=== PATIENT | female | born 1965 | race Caucasian/White ===

== ENCOUNTER 2019-03-23 08:48 | Observation (INO) | payer OTHER ==
--- NOTE | 2019-03-23 09:10 | PDOC ---
History of Present Illness - General Chief Complaint: Chest Pain Stated Complaint: CHEST PAIN Time Seen by Provider: 03/23/19 09:09 - History of Present Illness Initial Comments: 03/23/19 09:34 53y/o F hx of HTN, NIDDM, HLD, anxiety, presents to the ER with 2 days of left sided chest pain. Pain began yesterday when she was in bed and is stabbing in nature and 9/10 in severity. Pain increases and decreases in intensity, and radiates to her left arm with tingling. She has had nausea and 2 episoseds of non-bloody, non-billious emesis since yesterday. She endorses non-productive cough for last 5 days, chills, night sweats, headache and occasional shortness of breath. She denies previous hx of blood clots, Past History - Past Medical History Allergies/Adverse Reactions: Allergies Allergy/AdvReac Type Severity Reaction Status Date / Time No Known Allergies Allergy Verified 03/23/19 08:53 Home Medications: Ambulatory Orders Alogliptin Benzoate [Alogliptin] 1 tab PO DAILY 03/23/19 Amlodipine Besylate [Norvasc -] 10 mg PO DAILY 03/23/19 Atorvastatin Calcium [Lipitor] 10 mg PO HS 03/23/19 Enalapril Maleate [Vasotec] 20 mg PO DAILY 03/23/19 Gabapentin 1 tab PO TID 03/23/19 Metformin HCl [Glucophage] 1,000 mg PO BID 03/23/19 Omeprazole 20 mg PO DAILY 03/23/19 traZODone HCL [Trazodone HCl] 100 mg PO BID PRN 03/23/19 Docusate Sodium [Docusate 100 mg] 1 cap PO DAILY PRN 03/24/19 Metoprolol Succinate [Toprol Xl] 12.5 mg PO DAILY #30 tab.er.24h 03/24/19 COPD: No Diabetes: Yes HTN: Yes Hypercholesterolemia: Yes Psychiatric Problems: Yes (anxiety) - Psycho Social/Smoking Cessation Hx Smoking History: Unknown if ever smoked *Physical Exam - Vital Signs Last Vital Signs Temp Pulse Resp BP Pulse Ox 97.5 F L 89 18 137/82 100 03/23/19 08:57 03/23/19 08:57 03/23/19 08:57 03/23/19 08:57 03/23/19 08:57 - Physical Exam 03/23/19 09:46 GENERAL: Awake, alert, and fully oriented, in no acute distress HEAD: No signs of trauma, normocephalic, atraumatic EYES: PERRLA, EOMI, sclera anicteric, conjunctiva clear ENT: Auricles normal inspection, hearing grossly normal, nares patent, oropharynx clear without exudates. Moist mucosa NECK: Normal ROM, supple, no lymphadenopathy, JVD, or masses LUNGS: No distress, speaks full sentences, clear to auscultation bilaterally. keloids on chest. tenderness to palpation of upper left thorax. HEART: Regular rate and rhythm, normal S1 and S2, no murmurs, rubs or gallops, peripheral pulses normal and equal bilaterally. ABDOMEN: Soft, nontender, normoactive bowel sounds. No guarding, no rebound. No masses. keloids from surgical scar EXTREMITIES : Normal inspection, Normal range of motion, no edema. No clubbing or cyanosis NEUROLOGICAL: Cranial nerves II through XII grossly intact. Normal speech, , no focal sensorimotor deficits SKIN: Warm, Dry, normal turgor, no rashes or lesions noted Heart Score/ECG Review - History History: Slightly suspicious - Electrocardiogram EKG: Non specific repolarization disturbance - Age Age: 45-65 - Risk Factors Risk Factors Heart Score: Yes Hx Hypercholesterolemia, Yes Hx Hypertension, Yes Hx Diabetes Based on the list above the patient has:: >/=3 risk factors or Hx atherosclerotic disease - Troponin Troponin: </= normal limit - Score Heart Score - Total: 4 ED Treatment Course - LABORATORY CBC & Chemistry Diagram: 03/24/19 06:26 03/24/19 06:26 Medical Decision Making - Medical Decision Making 03/23/19 09:47 53y/o F hx of HTN, NIDDM, HLD, anxiety, presents to the ER with 2 days of left sided chest pain. ekg, cbc, cmp, troponin, flu swab meds: tylenol, zofran, famotidine 03/23/19 09:52 EKG NSR, nonspecific T wave abnormality 03/23/19 11:04 Negative for flu. 03/23/19 11:55 HEART score 4 recommendation admit for observation Pt feeling better after fluids and tylenol. Admitting team microblogged for admission. Discharge - Discharge Information Problems reviewed: Yes Clinical Impression/Diagnosis: Chest pain Qualifiers: Chest pain type: other chest pain Qualified Code(s): R07.89 - Other chest pain ; R07.8 - Other chest pain Condition: Improved Disposition: AGAINST MEDICAL ADVICE - Follow up/Referral - Patient Discharge Instructions - Post Discharge Activity
[2019-03-23] MEDS ORDERED: ONDANSETRON 4 MG/2 ML VIAL IVPUSH ONE (09:28)
[2019-03-23] MEDS ORDERED: FAMOTIDINE 20 MG/50 ML IVPB 20 MG/50 ML MG IVPB ONE ×2 (09:28→09:34)
[2019-03-23] MEDS ORDERED: ACETAMINOPHEN 1000 MG/100 ML VIAL (NON FORMULARY) IVPB ONE (09:32)
[2019-03-23] MEDS ORDERED: ONDANSETRON 4 MG/2 ML VIAL ONE (09:34)
[2019-03-23] MEDS ORDERED: SODIUM CHLORIDE 0.9% 500 ML INFUS.BAG IV ONE (09:34)
[2019-03-23] MEDS ORDERED: ACETAMINOPHEN INJECTION 100 ML IVPB ONE (09:34)
[2019-03-23 09:46] LABS: BASO % 0.8 % (0-2.0); EOS % 0.5 % (0-4.5); HEMATOCRIT 41.2 % (32.4-45.2); HEMOGLOBIN 13.8 GM/dL (10.7-15.3); LYMPH % 16.5 % (8-40); MCH 28.2 pg (25.7-33.7); MCHC 33.5 g/dl (32.0-36.0); MEAN CELL VOLUME 84.2 fl (80-96); MEAN PLT VOLUME 10.1 fl (7.5-11.1); MONO % 6.5 % (3.8-10.2); NEUT % 75.7 % (42.8-82.8); PLATELET COUNT 205 K/MM3 (134-434); RDW 14.6 % (11.6-15.6); WHITE BLOOD COUNT 12.7 K/mm3 (4.0-10.0)
[2019-03-23 10:23] LABS: ALBUMIN 3.7 g/dl (3.4-5.0); ALK PHOS 108 U/L (45-117); ANION GAP 6 MMOL/L (8-16); BILIRUBIN,TOTAL 0.5 mg/dL (0.2-1); BLOOD UREA NITROGEN 23.5 mg/dL (7-18); CALCIUM 9.9 mg/dL (8.5-10.1); CHLORIDE 103 mmol/L (98-107); CO2 28 mmol/L (21-32); CREATININE 0.9 mg/dL (0.55-1.3); GLUCOSE,RANDOM 137 mg/dL (74-106); POTASSIUM 4.4 mmol/L (3.5-5.1); SGOT/AST 18 U/L (15-37); SGPT/ALT 23 U/L (13-61); SODIUM 138 mmol/L (136-145); TOT PROT 8.1 g/dl (6.4-8.2)
--- NOTE | 2019-03-23 10:56 | EKG ---
Test Reason : Blood Pressure : / mmHG Vent. Rate : 083 BPM Atrial Rate : 083 BPM P-R Int : 150 ms QRS Dur : 068 ms QT Int : 362 ms P-R-T Axes : 045 024 065 degrees QTc Int : 425 ms NORMAL SINUS RHYTHM NONSPECIFIC T WAVE ABNORMALITY ABNORMAL ECG NO PREVIOUS ECGS AVAILABLE Confirmed by Chapin Childs MD ([id number]) on 03/23/2019 10:56:33 AM Referred By: Confirmed By:Chapin Childs MD
--- NOTE | 2019-03-23 11:17 | PDOC ---
Documentation entered by aRjan Caal SCRIBE, acting as scribe for Jordan Ortiz MD. Jordan Ortiz MD: This documentation has been prepared by the Ten galarza Daniel, SCRIBE, under my direction and personally reviewed by me in its entirety. I confirm that the documentation accurately reflects all work, treatment, procedures, and medical decision making performed by me. Attending Attestation - Resident Resident Name: ViktoriaAugustdendiony - ED Attending Attestation I have performed the following: I have examined & evaluated the patient, The case was reviewed & discussed with the resident, I agree w/resident's findings & plan, Exceptions are as noted - HPI HPI: 03/23/19 11:20 The patient is a 53 year old female with a past medical history of diabetes, HTN , HLD here today for evaluation of chest pain. The patient reports that last night while lying down she developed left sided chest pain that is constant, a pressure or sharp pain in nature, and radiates to the left shoulder and arm. She also reports that she has had a dry cough for the past 3 days, 1 episode of non bloody non bilious vomiting yesterday, shortness of breath since yesterday, and generalized malaise. She also notes that she had a normal stress test 1 year ago. Patient denies headache, lightheadedness. Denies fever, chills. Denies nausea, vomiting, diarrhea, abdominal pain. Allergies: NKA PCP: Jose Monge - Physicial Exam PE: 03/23/19 11:20 GENERAL: Awake, alert, and fully oriented, in no acute distress HEAD: No signs of trauma EYES: PERRLA, EOMI, sclera anicteric, conjunctiva clear ENT: Auricles normal inspection, hearing grossly normal, nares patent, oropharynx clear without exudates. Moist mucosa NECK: Normal ROM, supple, no lymphadenopathy, JVD, or masses LUNGS: Breath sounds equal, clear to auscultation bilaterally. No wheezes, and no crackles HEART: Regular rate and rhythm, normal S1 and S2, no murmurs, rubs or gallops ABDOMEN: Soft, nontender, normoactive bowel sounds. No guarding, no rebound. No masses EXTREMITIES: Normal range of motion, no edema. No clubbing or cyanosis. No cords , erythema, or tenderness BACK: No midline spinal tenderness in cervical/thoracic/lumbar region NEUROLOGICAL: Normal speech, cranial nerves intact, negative pronator drift, 5/ 5 strength in all 4 extremities, normal sensation to light touch in all 4 extremities, normal cerebellar exam, normal gait, normal reflexes and tone SKIN: Warm, Dry, normal turgor, no rashes or lesions noted. - Medical Decision Making 03/23/19 13:03 53yo F hx HTN/DM presents to the ED with LSCP radiating to arm a/w intermittent SOB at rest DDx includes ACS vs angina vs unstable angina vs MSK pain Unlikely PE as no risk factors, vitals wnl, CP not pleuritic, no calf pain/ttp EKG with lateral TW flattening Trop neg, CXR clear HS 4, pt admitted to tele obs for TOM Case discussed in detail with admitting physician including history, physical exam and ancillary studies. Admitting physician has assumed care for the patient, will follow all pending diagnostics and will complete the evaluation and treatment. Heart Score/ECG Review - History History: Moderately suspicious - Electrocardiogram EKG: Normal - Age Age: 45-65 - Risk Factors Risk Factors Heart Score: Yes Hx Obesity Based on the list above the patient has:: >/=3 risk factors or Hx atherosclerotic disease - Troponin Troponin: </= normal limit - Score Heart Score - Total: 4
--- NOTE | 2019-03-23 13:33 | PN ---
Teaching Attending Note Name of Resident: Rob Kohler ATTENDING PHYSICIAN STATEMENT I saw and evaluated the patient. I reviewed the resident's note and discussed the case with the resident. I agree with the resident's findings and plan as documented. SUBJECTIVE: Patient is 53yof with PMhx of HTN, NIDDM, HLD, anxiety, presents to the ER with 2 days of having left sided chest pain. OBJECTIVE: Vital Signs Temperature 98.0 F 03/23/19 13:21 Pulse Rate 70 03/23/19 13:21 Respiratory Rate 20 03/23/19 13:21 Blood Pressure 137/77 03/23/19 13:21 O2 Sat by Pulse Oximetry (%) 100 03/23/19 13:21 GENERAL: The patient is awake, alert, and fully oriented, in no acute distress. HEAD: Normal with no signs of trauma. EYES: PERRL, extraocular movements intact, sclera anicteric, conjunctiva clear. ENT: Ears normal, nares patent, oropharynx clear without exudates, moist mucous membranes. NECK: Trachea midline, full range of motion, supple. LUNGS: Breath sounds equal, clear to auscultation bilaterally, no wheezes, no crackles, no accessory muscle use. HEART: Regular rate and rhythm, S1, S2 without murmur, rub or gallop. ABDOMEN: Soft, nontender, nondistended, normoactive bowel sounds, no guarding, no rebound, no hepatosplenomegaly, no masses. EXTREMITIES: 2+ pulses, warm, well-perfused, no edema. NEUROLOGICAL: Cranial nerves II through XII grossly intact. Normal speech, gait not observed. PSYCH: Normal mood, normal affect. SKIN: Warm, dry, normal turgor, no rashes or lesions noted CBCD WBC 12.7 K/mm3 (4.0-10.0) H 03/23/19 09:24 RBC 4.90 M/mm3 (3.60-5.2) 03/23/19 09:24 Hgb 13.8 GM/dL (10.7-15.3) 03/23/19 09:24 Hct 41.2 % (32.4-45.2) 03/23/19 09:24 MCV 84.2 fl (80-96) 03/23/19 09:24 MCHC 33.5 g/dl (32.0-36.0) 03/23/19 09:24 RDW 14.6 % (11.6-15.6) 03/23/19 09:24 Plt Count 205 K/MM3 (134-434) 03/23/19 09:24 MPV 10.1 fl (7.5-11.1) 03/23/19 09:24 CMP Sodium 138 mmol/L (136-145) 03/23/19 09:24 Potassium 4.4 mmol/L (3.5-5.1) 03/23/19 09:24 Chloride 103 mmol/L (98-107) 03/23/19 09:24 Carbon Dioxide 28 mmol/L (21-32) 03/23/19 09:24 Anion Gap 6 MMOL/L (8-16) L 03/23/19 09:24 BUN 23.5 mg/dL (7-18) H 03/23/19 09:24 Creatinine 0.9 mg/dL (0.55-1.3) 03/23/19 09:24 Random Glucose 137 mg/dL (74-106) H 03/23/19 09:24 Calcium 9.9 mg/dL (8.5-10.1) 03/23/19 09:24 Total Bilirubin 0.5 mg/dL (0.2-1) 03/23/19 09:24 AST 18 U/L (15-37) 03/23/19 09:24 ALT 23 U/L (13-61) 03/23/19 09:24 Alkaline Phosphatase 108 U/L (45-117) 03/23/19 09:24 Total Protein 8.1 g/dl (6.4-8.2) 03/23/19 09:24 Albumin 3.7 g/dl (3.4-5.0) 03/23/19 09:24 CARDIAC ENZYMES Troponin I < 0.02 ng/ml (0.00-0.05) 03/23/19 09:24 Current Medications Generic Name Dose Route Start Last Admin Trade Name Freq PRN Reason Stop Dose Admin Enoxaparin Sodium 40 mg 03/24/19 10:00 Lovenox - SQ DAILY [facility] Insulin Aspart 1 vial 03/23/19 16:30 Novolog Vial Sliding Scale - SQ ACHS [facility] Protocol Labetalol HCl 100 mg 03/23/19 22:00 Normodyne - PO BID [facility] Home Medications Medication Instructions Recorded Alogliptin Benzoate [Alogliptin] 1 tab PO DAILY 03/23/19 Amlodipine Besylate [Norvasc -] 10 mg PO DAILY 03/23/19 Atorvastatin Calcium [Lipitor] 10 mg PO HS 03/23/19 Enalapril Maleate [Vasotec] 20 mg PO DAILY 03/23/19 Gabapentin 1 tab PO TID 03/23/19 Metformin HCl [Glucophage] 1,000 mg PO BID 03/23/19 Omeprazole 20 mg PO DAILY 03/23/19 Pantoprazole Sodium [Protonix -] 40 mg PO DAILY 03/23/19 traZODone HCL [Trazodone HCl] 100 mg PO BID PRN 03/23/19 EKG: NSR, rate 83,nonspecific T-wave changes. CXR: No acute pathology ASSESSMENT AND PLAN: Patient is 53yoF with Pmhx of HTN, NIDDM, HLD, anxiety, presents to the ER c/o having 2 days of left sided chest pain. As per patient chest pain after having an argument with her Boyfriend. #Acute chest pain r/o ACs, trend trops, ekg, influenza A/B negative #Hx of T2DM continue home meds #Hx of HTN: continue home meds. #Hxof HLD continue lipitor will get echo , monitor DVt Px: Lovenox sq
--- NOTE | 2019-03-23 13:58 | HP ---
CHIEF COMPLAINT: Chest Pain PCP: Dr. Jaylan Schulte HISTORY OF PRESENT ILLNESS: Pt. chapis 53 y.o. F w/ PMHx. of NIDDM (DDx.~7 years ago), HTN, HLD, Anxiety, Arthritis, and Osteopenia (Pt. reports Dexascan 2-3 years ago by PCP) presents for chest pain that was 9/10 in severity and started last night after having an argument with her fiance with associated shortness of breath, 3 episodes of NBNB emesis, headache, malaise, chills, dizziness and night sweats. Pt. denies taking anything for this but states that this has been happening intermittently for the last 3 years. Pt. states this time is the worst that it has ever happened. Pt. reports that at that time she checked her BP and it was 198/77. Pt. rechecked her BP some time later with out any intervention and her BP self-lowered to 108/99. Pt. report sleeping in her mom' s room that night. Chest pain then re-occurred this AM after again getting into an argument with her finace. Pt. did not check her BP this time and instead came to the ED. Pt. endorses that 1 week ago she was started on Lipitor 10mg( had reported cholesterol of 300), Algoliptin 25 mg, and Norvasc 10mg (had reported BP of 200 systolic during the office visit. Pt. states that she has had intentional weight loss from 210 lbs. to 168 lbs. as Pt. was trying to get her A1c lowered. (Pt. decreased her A1c from 11% to 7% during her last visit). Pt. endorses diarrhea x 5 watery episodes without blood 5 days ago which resolved on its own. Pt. denies any recent antibiotics, sick contacts or any other recent illness. Pt. denies ever having colonoscopy. Pt. had Mammogran and Pap smear within last year which was both negative. Pt. reports having Echo and Stress Test last year and it was completely normal. Pt. denies having a spray dyer. ER course was notable for: (1)EKG, Tylenol, Famotidine, Zofran, NSx 1L (2) (3) Recent Travel: No, Pt. moved from [place] 7 months ago. PAST MEDICAL HISTORY: As above PAST SURGICAL HISTORY: Partial AHBSO w/ retained cervix (fibroids--> Pain and Mennorhagia) and CCY during same procedure. Social History: SmokinPPD x 27 years, now down to 3 cigs/ day Alcohol: Denies Drugs: Denies Pt. lives with her son and fiance. Pt. states she uses a cane to ambulate because of chronic L. knee pain. 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 Family Hx.: Father had heart disease and of Prostate CA (65), Sister of Brain tumor (50s), Grandfather of Prostate CA, Mother has heart disease Allergies No Known Allergies Allergy (Verified 03/23/19 08:53) HOME MEDICATIONS: Home Medications Medication Instructions Recorded Alogliptin Benzoate [Alogliptin] 1 tab PO DAILY 03/23/19 Amlodipine Besylate [Norvasc -] 10 mg PO DAILY 03/23/19 Atorvastatin Calcium [Lipitor] 10 mg PO HS 03/23/19 Enalapril Maleate [Vasotec] 20 mg PO DAILY 03/23/19 Gabapentin 1 tab PO TID 03/23/19 Metformin HCl [Glucophage] 1,000 mg PO BID 03/23/19 Omeprazole 20 mg PO DAILY 03/23/19 Pantoprazole Sodium [Protonix -] 40 mg PO DAILY 03/23/19 traZODone HCL [Trazodone HCl] 100 mg PO BID PRN 03/23/19 REVIEW OF SYSTEMS As above PHYSICAL EXAMINATION Vital Signs - 24 hr 03/23/19 08:57 Temperature 97.5 F L Pulse Rate 89 Respiratory 18 Rate Blood Pressure 137/82 O2 Sat by Pulse 100 Oximetry (%) GENERAL: Awake, alert, and fully oriented, in no acute distress. HEAD: Normal with no signs of trauma. EYES: Pupils equal, round and reactive to light, sclera anicteric, conjunctiva clear. EARS, NOSE, THROAT: Ears normal, nares patent, oropharynx clear without exudates. Dry mucous membranes. NECK: Normal range of motion, supple without lymphadenopathy, JVD, or masses. LUNGS: Breath sounds equal, clear to auscultation bilaterally. No wheezes, and no crackles. No accessory muscle use. HEART: Regular rate and rhythm, normal S1 and S2 without murmur, rub or gallop. ABDOMEN: Soft, nontender, not distended, normoactive bowel sounds, no guarding, no rebound, no masses. Midline keloid abdominal scar. MUSCULOSKELETAL: Normal range of motion at all joints. No bony deformities or tenderness. No CVA tenderness. UPPER EXTREMITIES: 2+ radial pulses, warm, well-perfused. No cyanosis. No clubbing. No peripheral edema. LOWER EXTREMITIES: 2+ dorsal pedal pulses, warm, well-perfused. No calf tenderness. No peripheral edema. NEUROLOGICAL: Normal speech. Slight favoring of left leg on gait assessment w/o cane. 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 PSYCHIATRIC: Cooperative. Good eye contact. Appropriate mood and affect. Denies any SI/HI. Endorses increased stress at home. SKIN: Warm, dry, normal turgor Laboratory Results - last 24 hr 03/23/19 03/23/19 03/23/19 09:24 09:24 09:24 WBC 12.7 H RBC 4.90 Hgb 13.8 Hct 41.2 MCV 84.2 MCH 28.2 MCHC 33.5 RDW 14.6 Plt Count 205 MPV 10.1 Absolute Neuts (auto) 9.6 H Neutrophils % 75.7 Lymphocytes % 16.5 Monocytes % 6.5 Eosinophils % 0.5 Basophils % 0.8 Nucleated RBC % 0 Sodium 138 Potassium 4.4 Chloride 103 Carbon Dioxide 28 Anion Gap 6 L BUN 23.5 H Creatinine 0.9 Est GFR (CKD-EPI)AfAm 85.80 Est GFR (CKD-EPI)NonAf 74.03 Random Glucose 137 H Calcium 9.9 Total Bilirubin 0.5 AST 18 ALT 23 Alkaline Phosphatase 108 Troponin I < 0.02 Total Protein 8.1 Albumin 3.7 Lipase Influenza A (Rapid) Negative Influenza B (Rapid) Negative 03/23/19 09:24 WBC RBC Hgb Hct MCV MCH MCHC RDW Plt Count MPV Absolute Neuts (auto) Neutrophils % Lymphocytes % Monocytes % Eosinophils % Basophils % Nucleated RBC % Sodium Potassium Chloride Carbon Dioxide Anion Gap BUN Creatinine Est GFR (CKD-EPI)AfAm Est GFR (CKD-EPI)NonAf Random Glucose Calcium Total Bilirubin AST ALT Alkaline Phosphatase Troponin I Total Protein Albumin Lipase 209 Influenza A (Rapid) Influenza B (Rapid) ASSESSMENT/PLAN: Pt. is a 53 y.o. F w/ PMHx. of NIDDM(DDx.~7 years ago), HTN, HLD, Anxiety/ Depression, Arthritis, and Osteopenia (Pt. reports Dexascan 2-3 years ago by PCP ) presents for chest pain that was 9/10 in severity and started last night after having an argument with her fiance with associated shortness of breath, 3 episodes of NBNB emesis, headache, malaise, chills, dizziness and night sweats. #Chest Pain r/o ACS Trop Negative, will Rpt. EKG: NSR, bpm 83, no-specific T wave abnormality Could not see Echo or stress test results in Pt. outpatient EMR, therefore will order Echo. currently denies chest pain CXR: no acute pathology Leukocytosis and pain likely due to stress and elevated BP, will monitor on telemetry and adjust medications for better BP control #NIDDM hold PO medications Per chart review A1c: 7.6% (03/03/19) BGM ACHS ISS ACHS Last UA showed 3+ proteinuria with eGFR of 100+ #HTN #HLD #Anxiety/Depression #GERD c/w home medications will start Labetalol 100mg BID and discharge on for better blood pressure control with holding parameters per chart review Pt. has already been referred to Dr. Baldwin #FEN no IVF monitor electrolytes and replete as needed Na/ Diabetic diet #DVT Ppx. Lovenox 40mg SQ Visit type - Emergency Visit Emergency Visit: Yes ED Registration Date: 03/23/19 Care time: The patient presented to the Emergency Department on the above date and was hospitalized for further evaluation of their emergent condition. - New Patient This patient is new to me today: Yes Date on this admission: 03/23/19 - Critical Care Critical Care patient: No ATTENDING PHYSICIAN STATEMENT I saw and evaluated the patient. I reviewed the resident's note and discussed the case with the resident. I agree with the resident's findings and plan as documented. SUBJECTIVE: OBJECTIVE: ASSESSMENT AND PLAN:
[2019-03-23] MEDS ORDERED: traZODone HCL 100 MG TABLET (FP) PO PRN (13:59)
[2019-03-23 14:40] VITALS: BMI 28.2
[2019-03-23] MEDS ORDERED: PNEUMOC 13-VAL CONJ-DIP CRM/PF 0.5 ML DISP.SYRIN IM ONE (14:40)
[2019-03-23] MEDS ORDERED: traZODone HCL 50 MG TABLET (FP) PO PRN (14:56)
[2019-03-23] MEDS ORDERED: PNEUMOCOCCAL 23 VACCINE 0.5 ML VIAL IM ONE (15:00)
[2019-03-23] MEDS: GABAPENTIN 400 MG CAPSULE PO SCH ×2 (16:05→21:13)
[2019-03-23] MEDS: INSULIN SLIDING SCALE (NOVOLOG) 1 VIAL SQ SCH ×2 (17:55→21:18)
[2019-03-23] MEDS: LABETALOL HCL 100 MG TABLET (FP) PO SCH (21:13)
[2019-03-23] MEDS ORDERED: ATORVASTATIN CA 10 MG TABLET (FP) PO SCH (22:00)
[2019-03-24] MEDS: INSULIN SLIDING SCALE (NOVOLOG) 1 VIAL SQ SCH ×3 (06:26→16:48)
[2019-03-24] MEDS: GABAPENTIN 400 MG CAPSULE PO SCH ×2 (06:28→15:33)
[2019-03-24 08:05] LABS: HEMATOCRIT 36.1 % (32.4-45.2); HEMOGLOBIN 12.2 GM/dL (10.7-15.3); MCH 28.8 pg (25.7-33.7); MCHC 33.9 g/dl (32.0-36.0); MEAN CELL VOLUME 84.8 fl (80-96); MEAN PLT VOLUME 10.2 fl (7.5-11.1); PLATELET COUNT 175 K/MM3 (134-434); RBC 4.26 M/mm3 (3.60-5.2); RDW 14.6 % (11.6-15.6); WHITE BLOOD COUNT 7.5 K/mm3 (4.0-10.0)
[2019-03-24 08:28] LABS: BLOOD UREA NITROGEN 21.4 mg/dL (7-18); CREATININE 0.7 mg/dL (0.55-1.3); MAGNESIUM 1.8 mg/dL (1.8-2.4); PHOSPHOROUS 4.6 mg/dL (2.5-4.9); POTASSIUM 4.4 mmol/L (3.5-5.1)
[2019-03-24] MEDS: LABETALOL HCL 100 MG TABLET (FP) PO SCH (09:51)
[2019-03-24 09:52] VITALS: BP 122/60; PULSE 56; TEMP 98.6
[2019-03-24] MEDS ORDERED: ENOXAPARIN NA (PORCINE) 40 MG/0.4 ML DISP.SYRIN SQ SCH (10:00)
[2019-03-24] MEDS ORDERED: amLODIPine BESYLATE 10 MG TABLET (FP) PO SCH (10:00)
[2019-03-24] MEDS ORDERED: PANTOPRAZOLE 20 MG TABLET PO SCH (10:00)
[2019-03-24] MEDS ORDERED: ENALAPRIL MALEATE 10 MG TABLET (FP) PO SCH (10:00)
[2019-03-24 10:12] LABS: PH,URINE 5.5 (5.0-8.0); URINE APPEARANCE CLEAR; URINE BILIRUBIN NEGATIVE (NEGATIVE); URINE COLOR YELLOW; URINE GLUCOSE (UA) NEGATIVE (NEGATIVE); URINE KETONE NEGATIVE (NEGATIVE); URINE LEUK ESTERASE NEGATIVE (NEGATIVE); URINE NITRITE NEGATIVE (NEGATIVE); URINE PROTEIN TRACE (NEGATIVE); URINE UROBILINOGEN 0.2 mg/dL (0.2-1.0)
--- NOTE | 2019-03-24 11:35 | EKG ---
Test Reason : Blood Pressure : / mmHG Vent. Rate : 057 BPM Atrial Rate : 057 BPM P-R Int : 156 ms QRS Dur : 074 ms QT Int : 418 ms P-R-T Axes : 000 029 035 degrees QTc Int : 406 ms SINUS BRADYCARDIA MINIMAL VOLTAGE CRITERIA FOR LVH, MAY BE NORMAL VARIANT T WAVE ABNORMALITY, CONSIDER LATERAL ISCHEMIA ABNORMAL ECG WHEN COMPARED WITH ECG OF 23-MAR-2019 08:53, ST ELEVATION NOW PRESENT IN ANTERIOR LEADS NONSPECIFIC T WAVE ABNORMALITY NOW EVIDENT IN INFERIOR LEADS Confirmed by Chapin Childs MD ([id number]) on 03/24/2019 11:35:33 AM Referred By: YUE MACEDO DR Confirmed By:Chapin Childs MD
--- NOTE | 2019-03-24 14:14 | CON.CARD ---
Consult Consult Specialty:: Cardiology Referred by:: Calos Reason for Consultation:: chest pain - History of Present Illness Chief Complaint: chest pain History of Present Illness: 53 y.o. woman with a history of NIDDM, HTN, HLD, Anxiety, Arthritis, and Osteopenia who was admitted with chest pain that was 9/10 in severity and started after having an argument with her fiance with associated shortness of breath, after 3 episodes of NBNB emesis, headache, malaise, chills, dizziness and night sweats. Chest pain then re-occurred this AM after again getting into an argument with her fiance, again after emesis. She reports having an Echo and Stress Test last year at [facility] and it was completely normal. Echo 03/24/19: normal study. - History Source History Provided By: Patient, Medical Record - Past Medical History ...LMP: 02/19/12 ...: No - Smoking History Smoking history: Unknown if ever smoked Home Medications - Allergies Allergies/Adverse Reactions: Allergies Allergy/AdvReac Type Severity Reaction Status Date / Time No Known Allergies Allergy Verified 03/23/19 08:53 - Home Medications Home Medications: Ambulatory Orders Alogliptin Benzoate [Alogliptin] 1 tab PO DAILY 03/23/19 Amlodipine Besylate [Norvasc -] 10 mg PO DAILY 03/23/19 Atorvastatin Calcium [Lipitor] 10 mg PO HS 03/23/19 Enalapril Maleate [Vasotec] 20 mg PO DAILY 03/23/19 Gabapentin 1 tab PO TID 03/23/19 Metformin HCl [Glucophage] 1,000 mg PO BID 03/23/19 Omeprazole 20 mg PO DAILY 03/23/19 traZODone HCL [Trazodone HCl] 100 mg PO BID PRN 03/23/19 Vital Signs: Vital Signs Temperature 98.6 F 03/24/19 09:51 Pulse Rate 56 L 03/24/19 09:51 Respiratory Rate 18 03/24/19 06:06 Blood Pressure 122/60 03/24/19 09:51 O2 Sat by Pulse Oximetry (%) 100 03/23/19 21:51 - Other Data Labs, Other Data: CBC, BMP 03/24/19 06:26 03/24/19 06:26 Troponin, BNP 03/23/19 14:50 Troponin I < 0.02 Troponin, BNP 03/23/19 14:50 Troponin I < 0.02 Imaging - Results Chest X-ray: Report Reviewed EKG: Report Reviewed Assessment/Plan 53 y.o. woman with a history of NIDDM, HTN, HLD, Anxiety, Arthritis, and Osteopenia who was admitted with chest pain that was 9/10 in severity and started after having an argument with her fiance with associated shortness of breath, 3 episodes of NBNB emesis, headache, malaise, chills, dizziness and night sweats. Chest pain then re-occurred this AM after again getting into an argument with her finace. She reports having an Echo and Stress Test last year and it was completely normal. echo 03/24/19: normal study. Chest Pain -low risk chest pain by history, troponin negative. -ECG c/w LVH -would not repeat stress testing at this time. -will follow as needed.
--- NOTE | 2019-03-24 14:29 | ECHO ---
Name: SANTOSH GATES Exam:Adult Echocardiogram Study Date: 03/24/2019 01:55 PM Age: 53 yrs Height: 65 in Weight: 169 lb BSA: 1.8 m2 MMode/2D Measurements & Calculations IVSd: 0.99 cm Ao root diam: 2.2 cm LVIDd: 3.7 cm LA dimension: 3.7 cm LVIDs: 2.4 cm ACS: 1.8 cm LVPWd: 1.4 cm EDV(Teich): 59.7 ml LVOT diam: 1.9 cm ESV(Teich): 19.7 ml RV S Scar: 15.2 cm/sec Doppler Measurements & Calculations MV E max scar: 83.9 cm/sec Ao V2 max: 162.9 cm/sec MV A max scar: 94.3 cm/sec Ao max P.6 mmHg MV E/A: 0.89 Ao V2 mean: 108.4 cm/sec MV dec time: 0.22 sec Ao mean P.6 mmHg Ao V2 VTI: 31.7 cm KATIA(I,D): 2.5 cm2 KATIA(V,D): 2.1 cm2 LV V1 max P.8 mmHg SV(LVOT): 80.3 ml LV V1 mean P.9 mmHg LV V1 max: 120.4 cm/sec LV V1 mean: 79.5 cm/sec LV V1 VTI: 28.8 cm TR max scar: 164.2 cm/sec PA V2 max: 85.4 cm/sec TR max P.9 mmHg PA max P.9 mmHg Med Peak E' Scar: 5.4 cm/sec Med E/e': 15.6 Lat Peak E' Scar: 6.8 cm/sec Lat E/e': 12.3 Procedure A complete two-dimensional transthoracic echocardiogram was performed (2D, M-mode, Doppler and color flow Doppler). Left Ventricle The left ventricular size, thickness and function are normal. Ejection Fraction = 65%. E/A reversal c onsistent with but not diagnostic of poor LV compliance. The left ventricular wall motion is normal. Right Ventricle The right ventricle is normal in size and function. Atria Normal left and right atrial size and function. Mitral Valve The mitral valve is normal in structure and function. There is trace mitral regurgitation. Tricuspid Valve The tricuspid valve is normal in structure and function. There is trace tricuspid regurgitation. Righ t ventricular systolic pressure is 15 mmhg. Assuming the RA pressure is 5 mmHg. Aortic Valve There is trivial aortic valve thickening. Pulmonic Valve The pulmonic valve is normal in structure and function. Great Vessels The aortic root is normal size. Pericardium/Pleura There is no pericardial effusion. There is no pleural effusion. Interpretation Summary The left ventricular size, thickness and function are normal Ejection Fraction = 65%. MD Chapin Childs 03/24/2019 02:28 PM
--- NOTE | 2019-03-24 17:13 | PN ---
Teaching Attending Note Name of Resident: Renard Artis ATTENDING PHYSICIAN STATEMENT I saw and evaluated the patient. I reviewed the resident's note and discussed the case with the resident. I agree with the resident's findings and plan as documented. SUBJECTIVE: seen around noon No fever or chills . no Cp at time of eval. no SOB. reports neg stress test at [facility] 1 yr ago and nl echo at same time. OBJECTIVE: NAD Cv : RRR Lungs: CTAB ext : No edema ASSESSMENT AND PLAN: 53 y/o lady with h/o HTN, DM, HLP and anxiety who presented with Cp after an argument with her fiance . 1- Cp, atypical . EKG x [address] elevation in V2,3. this was reviewed by card. neg stress and echo reportedly 1 yr ago. evaluated by card. neg trop x 2. tele with one short episode of SVT. add toprol 12.5 f/u with her cushion assembler,qasim s she might need holter. echo obtained and reviewed. 2- HTN : cont norvasc and enalapril. add toprol plan was to dc patient home , but she could not wait until dc instructions are cpmpleted and discussed with her . she left befoer that. will mail her a copy of her dc instructions
--- NOTE | 2019-03-24 22:22 | DS ---
Physical Exam: SUBJECTIVE: Patient seen and examined. She offer no complaints. OBJECTIVE: Vital Signs Period Temp Pulse Resp BP Sys/Felix Pulse Ox Last 24 Hr 98.2 F-98.6 F 56-72 18-20 118-125/58-61 100 PHYSICAL EXAM GENERAL: The patient is awake, alert, and fully oriented, in no acute distress. HEAD: Normal with no signs of trauma. EYES: PERRL, extraocular movements intact, sclera anicteric, conjunctiva clear. ENT: Ears normal, nares patent, oropharynx clear without exudates, moist mucous membranes. NECK: Trachea midline, full range of motion, supple. LUNGS: Breath sounds equal, clear to auscultation bilaterally, no wheezes, no crackles, no accessory muscle use. HEART: Regular rate and rhythm, S1, S2 without murmur, rub or gallop. ABDOMEN: Soft, nontender, nondistended, normoactive bowel sounds, no guarding, no rebound, no hepatosplenomegaly, no masses. EXTREMITIES: 2+ pulses, warm, well-perfused, no edema. NEUROLOGICAL: Cranial nerves II through XII grossly intact. Normal speech, gait not observed. PSYCH: Normal mood, normal affect. SKIN: Warm, dry, normal turgor, no rashes or lesions noted. LABS Laboratory Results - last 24 hr 03/24/19 03/24/19 03/24/19 06:23 06:26 06:26 WBC 7.5 RBC 4.26 Hgb 12.2 Hct 36.1 MCV 84.8 MCH 28.8 MCHC 33.9 RDW 14.6 Plt Count 175 MPV 10.2 Sodium 140 Potassium 4.4 Chloride 106 Carbon Dioxide 27 Anion Gap 7 L BUN 21.4 H Creatinine 0.7 Est GFR (CKD-EPI)AfAm 116.27 Est GFR (CKD-EPI)NonAf 100.32 POC Glucometer 146 Random Glucose 123 H Calcium 9.0 Phosphorus 4.6 Magnesium 1.8 Urine Color Urine Appearance Urine pH Ur Specific [place] Urine Protein Urine Glucose (UA) Urine Ketones Urine Blood Urine Nitrite Urine Bilirubin Urine Urobilinogen Ur Leukocyte Esterase 03/24/19 06:30 WBC RBC Hgb Hct MCV MCH MCHC RDW Plt Count MPV Sodium Potassium Chloride Carbon Dioxide Anion Gap BUN Creatinine Est GFR (CKD-EPI)AfAm Est GFR (CKD-EPI)NonAf POC Glucometer Random Glucose Calcium Phosphorus Magnesium Urine Color Yellow Urine Appearance Clear Urine pH 5.5 Ur Specific [place] 1.016 Urine Protein Trace Urine Glucose (UA) Negative Urine Ketones Negative Urine Blood Negative Urine Nitrite Negative Urine Bilirubin Negative Urine Urobilinogen 0.2 Ur Leukocyte Esterase Negative HOSPITAL COURSE: Date of Admission:03/23/19 53 y/o female PMH of NIDDM (DDx.~7 years ago), HTN, HLD, Anxiety, Arthritis, and Osteopenia (Pt. reports Dexascan 2-3 years ago by PCP) presents for chest pain that was 9/10 in severity and started last night after having an argument and admitted for ACS w/u. EK mm ST elevation in V2,3. Neg stress and echo reportedly 1 yr ago. Evaluated by card. neg trop x 2. tele with one short episode of SVT. Toprol 12.5 was added to her home regimen. She was advised to f/ u with her wet end tester, as she might need a holter. She left AMA despite plan for dc this afternoon. Pt and pt's mother follow in residents' clinic and continuity of care will be provided. Date of Discharge: 03/24/19 Minutes to complete discharge: 40 Discharge Summary Problems reviewed: Yes Reason For Visit: CHEST PAIN Condition: Improved - Instructions Diet, Activity, Other Instructions: YOUR VISIT You came to the hospital because you were feeling chest pain. You were admitted to the hospital for care of this concern. While here you were seen by a wet end tester. Your echocardiogram was normal. You are now stable and may return home. MEDICATIONS Please continue to take your medications as prescribed. toprol is a new medications that was added. ADDITIONAL CARE Please make an appointment to see a primary care provider 1 week from today. Since you do not currently have one, you can be seen at the [facility] residents clinic located at [address] [place] [address]. Please call to make an appointment. If you would like to continue seeing Dr. Brandee Coleman or/and Dr. Renard Artis, please ask for a Friday morning appointment. Please make an appointment to see your wet end tester in 1 week. you might need a holter monitor . if you are trying to find a sayra wet end tester in area, you can see Dr. childs ADDITIONAL INFORMATION Please call 911 or come directly to the emergency department if you experience unusual headache, vision change, shortness of breath, chest pain, numbness, tingling, loss of alertness/awareness, loss of function, unusual bleeding or any alarming symptoms. Referrals: Matthew Oliveros MD [Staff Physician] - Chapin Childs MD [Staff Physician] - Disposition: AGAINST MEDICAL ADVICE - Home Medications Comprehensive Discharge Medication List: Ambulatory Orders Alogliptin Benzoate [Alogliptin] 1 tab PO DAILY 03/23/19 Amlodipine Besylate [Norvasc -] 10 mg PO DAILY 03/23/19 Atorvastatin Calcium [Lipitor] 10 mg PO HS 03/23/19 Enalapril Maleate [Vasotec] 20 mg PO DAILY 03/23/19 Gabapentin 1 tab PO TID 03/23/19 Metformin HCl [Glucophage] 1,000 mg PO BID 03/23/19 Omeprazole 20 mg PO DAILY 03/23/19 traZODone HCL [Trazodone HCl] 100 mg PO BID PRN 03/23/19 Docusate Sodium [Docusate 100 mg] 1 cap PO DAILY PRN 03/24/19 Metoprolol Succinate [Toprol Xl] 12.5 mg PO DAILY #30 tab.er.24h 03/24/19 This patient is new to me today: Yes Date on this admission: 03/24/19 Emergency Visit: No Critical Care patient: No - Discharge Referral Referred to [facility] No ATTENDING PHYSICIAN STATEMENT I saw and evaluated the patient. I reviewed the resident's note and discussed the case with the resident. I agree with the resident's findings and plan as documented. SUBJECTIVE: OBJECTIVE: ASSESSMENT AND PLAN:
== END 2019-03-24 17:01 | disposition left against medical advice (07) ==
LOC: JER 08:48 → JERBED 11:27 → J4W 13:51
PROVIDERS: ADMIT Internal Medicine; ATTEND Internal Medicine
PROC: 3E033GC Introduction of Other Therapeutic Substance into Peripheral Vein, Percutaneous Approach (ICD-10-PCS; principal; 2019-03-23)
PROC: 3E033NZ Introduction of Analgesics, Hypnotics, Sedatives into Peripheral Vein, Percutaneous Approach (ICD-10-PCS; 2019-03-23)
PROC: 3E0337Z Introduction of Electrolytic and Water Balance Substance into Peripheral Vein, Percutaneous Approach (ICD-10-PCS; 2019-03-23)
PROC: 3E013GC Introduction of Other Therapeutic Substance into Subcutaneous Tissue, Percutaneous Approach (ICD-10-PCS; 2019-03-23)
PROC: 3E0234Z Introduction of Serum, Toxoid and Vaccine into Muscle, Percutaneous Approach (ICD-10-PCS; 2019-03-23)
DX: R07.89 Other chest pain (principal); I10 Essential (primary) hypertension; E78.5 Hyperlipidemia, unspecified; E11.9 Type 2 diabetes mellitus without complications; F41.9 Anxiety disorder, unspecified; K21.9 Gastro-esophageal reflux disease without esophagitis; M19.90 Unspecified osteoarthritis, unspecified site; M85.80 Other specified disorders of bone density and structure, unspecified site; Z79.84 Long term (current) use of oral hypoglycemic drugs
CPT/HCPCS: 36415; 71046-TC-FY; 80048; 80053; 81003; 82962; 83690; 83735; 84100; 84484; 85025; 85027; 87804; 90471; 90732; 93005; 93010; 93306-TC; 96365; 96372; 96375; 99285-25; G0009; G0378; J0131

== ENCOUNTER 2019-08-11 12:42 | Emergency (ER) | payer OTHER ==
[2019-08-11] MEDS ORDERED: ACETAMINOPHEN 1000 MG/100 ML VIAL (NON FORMULARY) IVPB ONE (12:50)
[2019-08-11 12:52] VITALS: BMI 29.6
--- NOTE | 2019-08-11 12:54 | PDOC ---
Rapid Medical Evaluation Time Seen by Provider: 08/11/19 12:46 Medical Evaluation: Allergies Allergy/AdvReac Type Severity Reaction Status Date / Time No Known Allergies Allergy Verified 08/11/19 12:44 08/11/19 12:51 CC: Dizziness and headache x 2 days, went to pcp on friday for check up and bp 170/90 and was told if s/s worsen to go to the ED. Denies cp, sob, or visual changes but states anxiety has increased. Takes bp meds daily Exam: elevated bp, tearful Plan: labs, ekg, iv tylenol, urine Discharge Disposition - Diagnosis Dizzinesses - Referrals - Patient Instructions - Post Discharge Activity
--- NOTE | 2019-08-11 13:22 | PDOC ---
History of Present Illness - General Chief Complaint: Chest Pain Stated Complaint: HIGH BLOOD PRESURE Time Seen by Provider: 08/11/19 12:46 - History of Present Illness Initial Comments: 08/11/19 13:20 54 yo F with h/o HTN, HLD, anxiety, osteopenia, who p/w headache. Patient reports 2 days of gradual onset, diffuse, frontal, pressure-type CASTRO, with asx. photo/phonophobia, w/out aura, and w/out vision changes. + lightheadedness intermittently. Patient states that CASTRO is worse compared to other CASTRO. Pain improved with Tylenol OTC. Patient also reports non exertional, left sided, pressure type chest pain, radiating to left sided neck, intermittently, lasting for seconds, with no identifiable alleviators or triggers. Recently evaluated for HTN at [facility] 08-09-19, and compliant with home Metoprolol, Amlodipine, Enalapril. Denies head or neck trauma. Does not wear corrective lenses. Patient denies vision change, palpitations, cough, wheezing, orthopena, PND, leg swelling/pain, N/V, F,C, SOB, urinary complaints, hematuria, BPR, abdominal pain, diarrhea, constipation, lightheadedness, weakness, sensory changes. PMHx: as noted above. H/o nml stress test/echo 2019 at [facility]. 03/24/2019 Echo unremarkable. FHX: Father -NV ROS: as noted SHx: Denies Etoh, IVDA, tobacco use Allergies: NKDA Past History - Medical History Allergies/Adverse Reactions: Allergies Allergy/AdvReac Type Severity Reaction Status Date / Time No Known Allergies Allergy Verified 08/11/19 12:44 Home Medications: Ambulatory Orders Amlodipine Besylate [Norvasc -] 10 mg PO DAILY 03/23/19 Atorvastatin Calcium [Lipitor] 10 mg PO HS 03/23/19 Enalapril Maleate [Vasotec] 20 mg PO DAILY 03/23/19 Gabapentin 1 tab PO TID 03/23/19 Metformin HCl [Glucophage] 1,000 mg PO BID 03/23/19 Omeprazole 20 mg PO DAILY 03/23/19 traZODone HCL [Trazodone HCl] 100 mg PO BID PRN 03/23/19 Docusate Sodium [Docusate 100 mg] 1 cap PO DAILY PRN 03/24/19 Metoprolol Succinate [Toprol Xl] 12.5 mg PO DAILY #30 tab.er.24h 03/24/19 Aspirin/Acetaminophen/Caffeine [Excedrin Migraine Caplet] 1 tab PO QID PRN #30 tablet MDD 4 tab 08/11/19 COPD: No Diabetes: Yes HTN: Yes Hypercholesterolemia: Yes Psychiatric Problems: Yes (anxiety) - Psycho-Social/Smoking History Smoking History: Current every day smoker Have you smoked in the past 12 months: Yes Number of Cigarettes Smoked Daily: 4 Information on smoking cessation initiated: Yes - Substance Abuse Hx (Audit-C & DAST Scrn) How often the patient has a drink containing alcohol: Never Score: In Men: 4 or > Positive; In Women: 3 or > Positive: 0 Screen Result (Pos requires Nsg. Audit-10AR): Negative In the last yr the pt used illegal drug/Rx for NonMed reason: No Score: Yes response is considered Positive: 0 Screen Result (Positive result requires Nsg. DAST-10): Negative Review of Systems - Review of Systems Comments:: 08/11/19 13:21 GENERAL/CONSTITUTIONAL: No fever or chills. No weakness. HEAD, EYES, EARS, NOSE AND THROAT: No change in vision. No ear pain or discharge. No sore throat. CARDIOVASCULAR: + chest pain. No hortness of breath RESPIRATORY: No cough, wheezing, or hemoptysis. GASTROINTESTINAL: No nausea, vomiting, diarrhea or constipation. GENITOURINARY: No dysuria, frequency, or change in urination. MUSCULOSKELETAL: No joint or muscle swelling or pain. No neck or back pain. SKIN: No rash NEUROLOGIC:+ headache. No vertigo, loss of consciousness, or change in strength/sensation. ENDOCRINE: No increased thirst. No abnormal weight change HEMATOLOGIC/LYMPHATIC: No anemia, easy bleeding, or history of blood clots. ALLERGIC/IMMUNOLOGIC: No hives or skin allergy. *Physical Exam - Vital Signs Last Vital Signs Temp Pulse Resp BP Pulse Ox 98.5 F 102 H 16 175/105 H 100 08/11/19 12:47 08/11/19 12:47 08/11/19 12:47 08/11/19 12:47 08/11/19 12:47 - Physical Exam 08/11/19 13:21 GENERAL: Awake, alert, and fully oriented, in no acute distress HEAD: No signs of trauma, normocephalic, atraumatic EYES: PERRLA, EOMI, sclera anicteric, conjunctiva clear ENT: Auricles normal inspection, hearing grossly normal, nares patent, oropharynx clear without exudates. Moist mucosa NECK: Normal ROM, supple, no lymphadenopathy, JVD, or masses LUNGS: No distress, speaks full sentences, clear to auscultation bilaterally HEART: Regular rate and rhythm, normal S1 and S2, no murmurs, rubs or gallops, peripheral pulses normal and equal bilaterally. ABDOMEN: Soft, nontender, normoactive bowel sounds. No guarding, no rebound. No masses EXTREMITIES : Normal inspection, Normal range of motion, no edema. No clubbing or cyanosis NEUROLOGICAL: Cranial nerves II through XII grossly intact. Normal speech, normal gait, no focal sensorimotor deficits. Neg nystagmus. SKIN: Warm, Dry, normal turgor, no rashes or lesions noted ED Treatment Course - LABORATORY CBC & Chemistry Diagram: 08/11/19 14:00 08/11/19 14:00 - RADIOLOGY Radiology Studies Ordered: 08/11/19 15:41 08/11/19 15:41 Sparkle Pavilimarbella Name: SANTOSH GATES DEPARTMENT OF RADIOLOGY Phys: Emeka Hawkins RESIDENT : 1965 Age: 54 Sex: F [facility] Acct: [id number] Loc: [address] Exam Date: 08/11/19 Status: [place] [address] Unit Number: [id number] EXAM#: TYPE/EXAM: RESULT: [id number] CT/HEAD CT WITHOUT CONTRAST Cranial CT without contrast Clinical information given: headache Multiplanar imaging was performed. Intravenous contrast was not administered. No prior imaging exam is available at this facility for direct comparison. No intraparenchymal hemorrhage is seen. There is no CT evidence of acute subarachnoid hemorrhage. Correlate clinically. No extra-axial fluid collection is noted. An approximately 1.7 x 1.3 cm full-thickness osseous defect is seen within the floor of the left middle cranial fossa with partial imaging of an associated approximately 2.3 x 2.3 cm soft tissue lesion within the ipsilateral infratemporal fossa. No obvious intracranial mass lesion is identified on noncontrast imaging. No discrete infarct is identified within the limitations of CT. There is no definite abnormal intracranial attenuation. The ventricles and cisterns appear unremarkable. The partially imaged paranasal sinuses demonstrate no o pacification. IMPRESSION: An approximately 1.7 x 1.3 cm full-thickness osseous defect is seen involving the left middle cranial fossa floor. There is partial imaging of an associated approximately 2.3 x 2.3 cm soft tissue lesion within the infratemporal fossa in the region of the medial pterygoid muscle. Add itional evaluation utilizing contrast enhanced MRI is suggested, nonemergent versus emergent as clin ically indicated. Reported By: Yg Wright MD 08/11/191510 Emeka Hawkins Technologist: Randolph Herrera Transcribed Date/Time: 08/11/191510 Vehicle Operator Technician: Yg Wright Printed Date/Time: By: Medical Decision Making - Medical Decision Making 08/11/19 13:32 54 yo F with h/o HTN, HLD, who p/w 2 days of gradual onset, diffuse, frontal, pressure-type CASTRO, with asx. photo/phonophobia, and non exertional, left sided, pressure type chest pain, radiating to left sided neck, HR 102, BP 175/105. ACS/NV r/o. Will assess for evidence of end organ dysfunction 2/2 HTN. Patient with absent nuchal signs, or other signs of meningismus. Pt. non toxic appearing, and afebrile. CASTRO graudal onset, and without asx. neuro findings on exam. Will treat CASTRO with analgesia and reassess vital signs, and patient status. Ed Course: 08/11/19 13:57 EKG: Sinus tachycardia, HR~102, NSR with absent DINORA, STD. Nml interval duration and axis. Nml R wave progression. Absent Q waves.Similar to prior interval EKG (07-14-2019) 08/11/19 15:40 Laboratory Tests 08/11/19 08/11/19 14:00 14:00 WBC 10.1 H Hgb 13.4 Hct 39.6 Plt Count 208 Sodium 139 Potassium 4.3 BUN 19.5 H Creatinine 1.0 Random Glucose 187 H 08/11/19 15:41 IMPRESSION: An approximately 1.7 x 1.3 cm full-thickness osseous defect is seen involving the left middle cranial fossa floor. There is partial imaging of an associated approximately 2.3 x 2.3 cm soft tissue lesion within the infratemporal fossa in the region of the medial pterygoid muscle. 08/11/19 16:22 Patient CASTRO resolved, made aware of CTH findings, and patient agrees to follow up with neurology. BP improved Stable for d/c with return precautions Discharge - Discharge Information Problems reviewed: Yes Clinical Impression/Diagnosis: Dizzinesses, Chest pain Headache Qualifiers: Headache type: unspecified Headache chronicity pattern: acute headache Intractability: not intractable Qualified Code(s): R51 - Headache - Additional Discharge Information Prescriptions: Aspirin/Acetaminophen/Caffeine [Excedrin Migraine Caplet] 1 tab PO QID PRN #30 tablet MDD 4 tab PRN Reason: Pain - Follow up/Referral Referrals: Jose Monge MD [Primary Care Provider] - Rob Smalls MD [Staff Physician] - - Patient Discharge Instructions Patient Printed Discharge Instructions: DI for Atypical Chest Pain, DI for Headache Additional Instructions: Please return to the emergency department with any new or worsening symptoms or concerns. Please follow up with your primary care physician within 72 hours. As disccussed you have an approximately 1.7 x 1.3 cm full-thickness osseous defect is seen involving the left middle cranial fossa floor. There is partial imaging of an associated approximately 2.3 x 2.3 cm soft tissue lesion within the infratemporal fossa in the region of the medial pterygoid muscle. Please follow up with neurology and your PMD for further evaluation, and MRI You can take 600 mg Ibuprofen and/or Acetaminophen 650 mg every 6-8 hours as needed for pain. - Post Discharge Activity
[2019-08-11] MEDS ORDERED: METOCLOPRAMIDE HCL INJECTION 10 MG/2 ML VIAL IVPUSH ONE (13:27)
[2019-08-11] MEDS ORDERED: METOCLOPRAMIDE HCL INJECTION 10 MG/2 ML VIAL ONE (13:43)
[2019-08-11] MEDS ORDERED: ACETAMINOPHEN INJECTION 100 ML IVPB ONE (13:44)
[2019-08-11 14:13] LABS: BASO % 0.4 % (0-2.0); EOS % 0.6 % (0-4.5); HEMATOCRIT 39.6 % (32.4-45.2); HEMOGLOBIN 13.4 GM/dL (10.7-15.3); LYMPH % 18.9 % (8-40); MCH 28.6 pg (25.7-33.7); MCHC 33.8 g/dl (32.0-36.0); MEAN CELL VOLUME 84.6 fl (80-96); MEAN PLT VOLUME 10.4 fl (7.5-11.1); MONO % 7.4 % (3.8-10.2); NEUT % 72.7 % (42.8-82.8); PLATELET COUNT 208 K/MM3 (134-434); RBC 4.68 M/mm3 (3.60-5.2); RDW 14.3 % (11.6-15.6); WHITE BLOOD COUNT 10.1 K/mm3 (4.0-10.0)
--- NOTE | 2019-08-11 14:21 | PDOC ---
Documentation entered by Stacie Aguilera SCRIBE, acting as scribe for Jeffrey Hill MD. Jeffrey Hill MD: This documentation has been prepared by the Ale galarza Adrianna, SCRIBE, under my direction and personally reviewed by me in its entirety. I confirm that the documentation accurately reflects all work, treatment, procedures, and medical decision making performed by me. Attending Attestation - Resident Resident Name: Emeka Hawkins - ED Attending Attestation I have performed the following: I have examined & evaluated the patient, The case was reviewed & discussed with the resident, I agree w/resident's findings & plan, Exceptions are as noted - HPI HPI: The patient is a 54 year old female, with a significant PMH of HTN, HLD, anxiety, and osteopenia, who presents to the ED for evaluation of headache and chest pain for 2 days. She complains of a frontal headache, that is pressure- like in nature, with associated photophobia, phonophobia and intermittent lightheadedness. Endorses relief with Tylenol. Denies thunderclap. Denies neck stiffness. Denies F/C. Patient additionally complains of left-sided chest pressure, intermittent in nature, without any aggravating or alleviating factors, that started 1 week ago. Allergies: NKA, NKDA Surgical History: None reported Social History: No toxic habits PCP: Dr. Monge - Physicial Exam PE: GENERAL: The patient is awake, alert, and fully oriented, Nontoxic - in no acute distress. HEAD: Normocephalic, atraumatic. EYES: extraocular movements intact, sclera anicteric, conjunctiva clear. ENT: Normal voice, Moist mucous membranes. NECK: Normal range of motion, supple LUNGS: Breath sounds equal, clear to auscultation bilaterally. No wheezes, no rhonchi, no rales. HEART: Regular rate and rhythm, without murmur, rub or gallop. ABDOMEN: Soft, nontender, No guarding, no rebound.No CVA tenderness EXTREMITIES: Normal range of motion, no edema. No cyanosis. No erythema, or tenderness. NEUROLOGICAL: No facial asymmetry, Normal speech, PSYCH: Normal mood, normal affect. SKIN: Warm, Dry, normal turgor. - Medical Decision Making 08/11/19 15:59 54 F with headache and chest pain. Chest pain is very atypical, with no new ischemic changes on EKG. - Labs, trop - CT head - Tylvictor hugo wasserman 08/11/19 16:[address] head unremarkable Trop negative Pt is well appearing, with normal vitals. Clinically stable for DC at this time. I discussed the physical exam findings, ancillary test results and final diagnoses with the patient. I answered all of the patient's questions. The patient was satisfied with the care received and felt comfortable with the discharge plan and treatment plan. The patient agrees to follow up with the primary care physician within 24-72 hours. Please note this patient was evaluated during the COVID- crisis with the presidential Don Act Declaration and the [place] governor executive order number 202. He/she was evaluated and clinical decisions were made relative to healthcare system resources as well as clinical picture during a pandemic crisis situation. Discharge - Discharge Information Problems reviewed: Yes Clinical Impression/Diagnosis: Dizzinesses, Chest pain Headache Qualifiers: Headache type: unspecified Headache chronicity pattern: acute headache Intractability: not intractable Qualified Code(s): R51 - Headache Condition: Improved Disposition: HOME - Additional Discharge Information Prescriptions: Aspirin/Acetaminophen/Caffeine [Excedrin Migraine Caplet] 1 tab PO QID PRN #30 tablet MDD 4 tab PRN Reason: Pain - Follow up/Referral Referrals: Rob Smalls MD [Staff Physician] - Jose Monge MD [Primary Care Provider] - - Patient Discharge Instructions Patient Printed Discharge Instructions: DI for Atypical Chest Pain, DI for Headache Additional Instructions: Please return to the emergency department with any new or worsening symptoms or concerns. Please follow up with your primary care physician within 72 hours. As disccussed you have an approximately 1.7 x 1.3 cm full-thickness osseous defect is seen involving the left middle cranial fossa floor. There is partial imaging of an associated approximately 2.3 x 2.3 cm soft tissue lesion within the infratemporal fossa in the region of the medial pterygoid muscle. Please follow up with neurology and your PMD for further evaluation, and MRI You can take 600 mg Ibuprofen and/or Acetaminophen 650 mg every 6-8 hours as needed for pain. - Post Discharge Activity
[2019-08-11 14:36] LABS: ALBUMIN 3.5 g/dl (3.4-5.0); BILIRUBIN,TOTAL 0.4 mg/dL (0.2-1); BLOOD UREA NITROGEN 19.5 mg/dL (7-18); CALCIUM 9.4 mg/dL (8.5-10.1); MAGNESIUM 1.9 mg/dL (1.8-2.4); POTASSIUM 4.3 mmol/L (3.5-5.1); TOT PROT 7.7 g/dl (6.4-8.2)
[2019-08-11 16:21] VITALS: BP 145/86; PULSE 72; TEMP 98.2
--- NOTE | 2019-08-12 17:38 | EKG ---
Test Reason : Blood Pressure : / mmHG Vent. Rate : 102 BPM Atrial Rate : 102 BPM P-R Int : 138 ms QRS Dur : 064 ms QT Int : 340 ms P-R-T Axes : 068 033 070 degrees QTc Int : 443 ms SINUS TACHYCARDIA POSSIBLE LEFT ATRIAL ENLARGEMENT NONSPECIFIC ST AND T WAVE ABNORMALITY ABNORMAL ECG WHEN COMPARED WITH ECG OF 14-JUL-2019 15:39, VENT. RATE HAS INCREASED BY 34 BPM Confirmed by DEVAUGHN WASSERMAN MD ([id number]) on 08/12/2019 5:38:03 PM Referred By: Confirmed By:DEVAUGHN WASSERMAN MD
== END 2019-08-11 16:29 | disposition home or self-care (01) ==
LOC: JER 12:42
PROC: 3E033GC Introduction of Other Therapeutic Substance into Peripheral Vein, Percutaneous Approach (ICD-10-PCS; principal; 2019-08-11)
DX: R42 Dizziness and giddiness (principal); R51 Headache; R07.9 Chest pain, unspecified
CPT/HCPCS: 36415; 70450-TC; 71045-TC-FY; 80053; 83735; 85025; 93005; 93010; 99284-25; J0131

== ENCOUNTER 2019-11-25 13:52 | Emergency (ER) | payer OTHER ==
[2019-11-25 14:15] VITALS: BP 132/83; PULSE 80; TEMP 98.6; BMI 28.1
--- NOTE | 2019-11-25 14:22 | PDOC ---
History of Present Illness - General Chief Complaint: Chest Pain Stated Complaint: ABD.PAIN/ VOMITTING Time Seen by Provider: 11/25/19 14:21 - History of Present Illness Initial Comments: 11/25/19 15:06 54 yo female with pmh Htn, hld, NIDDM, osteopenia, and anxiety presents to the ED for epigastric pain for the past two weeks. Pt explains she has been having this pain on and off for years but for the last two weeks it has been constant. Pt explains it is a sharp pain that goes from her epigastrum and radiates to her LUQ and up to her throat. Pt explains pain is better with walking and worse with lying down. Pt has associated 2-3 episodes of emesis that is mixed with yellow, food and tinge of blood that has been going everyday for two weeks. Pt also has associated yellow and green diarrhea going on for one week. Pt also has associated metalic taste in her mouth. Pt explains she did go see her PCP Dr. Jose Monge on Friday who told her to keep taking her omeprazole and ordered her an ultrasound of her GB on Sat and an endoscopy for a later date. Her PCP told her to come to the ED if her sxs got worse. Her sxs were worsening today to the point where the pain was 10/10. Pt also has associated urinary frequency with blood in her urine but no dysuria. Pt denies fevers chills, cough, shortness of breath. PMH: HTN, NIDDM, HLD, osteopenia Meds: omeprazole 20mg, asn 81mg, atorvastatin 40mg, metformin 1000 mg, enalpril 20mg, amlodipine 5mg PSH: tuboopherectomy, hysterectomy Allergies: denies Social: 15 pack year history ( 8 years 1 pack 15 years 1/2 pack), denies drinking and drugs PCP: Dr. Jose Monge Past History - Medical History Allergies/Adverse Reactions: Allergies Allergy/AdvReac Type Severity Reaction Status Date / Time No Known Allergies Allergy Verified 11/25/19 14:10 Home Medications: Ambulatory Orders Amlodipine Besylate [Norvasc -] 10 mg PO DAILY 03/23/19 Atorvastatin Calcium [Lipitor] 10 mg PO HS 03/23/19 Enalapril Maleate [Vasotec] 20 mg PO DAILY 03/23/19 Gabapentin 1 tab PO TID 03/23/19 Metformin HCl [Glucophage] 1,000 mg PO BID 03/23/19 Omeprazole 20 mg PO DAILY 03/23/19 traZODone HCL [Trazodone HCl] 100 mg PO BID PRN 03/23/19 Docusate Sodium [Docusate 100 mg] 1 cap PO DAILY PRN 03/24/19 Metoprolol Succinate [Toprol Xl] 12.5 mg PO DAILY #30 tab.er.24h 03/24/19 Aspirin/Acetaminophen/Caffeine [Excedrin Migraine Caplet] 1 tab PO QID PRN #30 tablet MDD 4 tab 08/11/19 Amlodipine Besylate [Norvasc -] 5 mg PO DAILY #30 tablet 09/08/19 Atorvastatin Ca [Lipitor] 40 mg PO HS #30 tablet 09/08/19 Ondansetron HCl [Zofran] 4 mg SL TID PRN #9 tablet 11/25/19 COPD: No Diabetes: Yes HTN: Yes Hypercholesterolemia: Yes Psychiatric Problems: Yes (anxiety) - Reproductive History Is Patient Now?: No - Immunization History Immunization Up to Date: Yes - Psycho-Social/Smoking History Smoking History: Current every day smoker Have you smoked in the past 12 months: Yes Number of Cigarettes Smoked Daily: 4 Information on smoking cessation initiated: Yes - Substance Abuse Hx (Audit-C & DAST Scrn) How often the patient has a drink containing alcohol: Never Score: In Men: 4 or > Positive; In Women: 3 or > Positive: 0 Screen Result (Pos requires Nsg. Audit-10AR): Negative In the last yr the pt used illegal drug/Rx for NonMed reason: No Score: Yes response is considered Positive: 0 Screen Result (Positive result requires Nsg. DAST-10): Negative Review of Systems - Review of Systems Comments:: 11/25/19 15:52 GENERAL/CONSTITUTIONAL: No fever or chills. No weakness. HEAD, EYES, EARS, NOSE AND THROAT: No change in vision. No ear pain or discharge. No sore throat. CARDIOVASCULAR: Noshortness of breath RESPIRATORY: No cough, wheezing, or hemoptysis. GASTROINTESTINAL: nausea, vomiting, and diarrhea GENITOURINARY: Increased frequency and hematuria. No dysuria MUSCULOSKELETAL: No joint or muscle swelling or pain. No neck or back pain. SKIN: No rash NEUROLOGIC: No headache, vertigo, loss of consciousness, or change in strength/sensation. ENDOCRINE: No increased thirst. No abnormal weight change HEMATOLOGIC/LYMPHATIC: No anemia, easy bleeding, or history of blood clots. ALLERGIC/IMMUNOLOGIC: No hives or skin allergy. *Physical Exam - Vital Signs Last Vital Signs Temp Pulse Resp BP Pulse Ox 98.6 F 80 18 132/83 99 11/25/19 14:10 11/25/19 14:10 11/25/19 14:10 11/25/19 14:10 11/25/19 14:10 - Physical Exam 11/25/19 15:54 GENERAL: Awake, alert, and fully oriented, in mild distress HEAD: No signs of trauma, normocephalic, atraumatic EYES: EOMI, sclera anicteric, conjunctiva clear ENT: Auricles normal inspection, hearing grossly normal, nares patent, oropharynx clear without exudates. Moist mucosa NECK: Normal ROM, supple, no lymphadenopathy, JVD, or masses LUNGS: No distress, speaks full sentences, clear to auscultation bilaterally HEART: Regular rate and rhythm, normal S1 and S2, no murmurs, rubs or gallops, peripheral pulses normal and equal bilaterally. ABDOMEN: Normoactive bowel sounds. Tender to palpation in RUQ, and LUQ. Positive Conway sign. EXTREMITIES : Normal inspection, no edema. No clubbing or cyanosis. NEUROLOGICAL: Cranial nerves II through XII grossly intact. Normal speech, SKIN: Warm, Dry, normal turgor, no rashes or lesions noted : Left sided CVA tenderness Heart Score/ECG Review - ECG Impressions Comment:: 11/25/19 15:43 Regular rate and rhythm Normal VT, QRS, and Qtc Normal axis No ST elevation or signs of ischemia ED Treatment Course - LABORATORY CBC & Chemistry Diagram: 11/25/19 15:30 11/25/19 15:30 Medical Decision Making - Medical Decision Making 11/25/19 15:55 54 yo female with pmh of htn, hld, DM that presents with epigastric tenderness for the past two weeks. Pt also has positive left cva tenderness and LUQ, RUQ tenderness with positive beckford sign. Ddx: GERD, PUD, cholecystitis, cholodocolithiasis, ACS, Pancreatitis Will order: cbc, cmp, lipase, ekg, cardiac enzyme, Gallbladder US and CXR. Will also give pepcid, maalox, and viscous lidocaine. Pt threw up viscous lidocaine will give zofran with QtC being 393 11/25/19 16:17 Pt expresses pain is much better. She explain pain is now gone from 10+/10 pain to 5/10 pain. 11/25/19 16:44 labs has shown no gross abnormalities. Waiting for Gallbladder scan. Pt not taking prescribed omeprazole will tell to continue taking if negative. 11/25/19 17:01 Pt able to tolerate PO water 11/25/19 17:36 Pt feeling well and wants to go home. Pt GB scan was negative for gallstones or cholecystitis. Pt was prescribed Sublingual zofran. Pt has strict return precautions and was told to call GI to set up an appointment. Discharge - Discharge Information Problems reviewed: Yes Clinical Impression/Diagnosis: Abdominal pain Qualifiers: Abdominal location: upper abdomen, unspecified Qualified Code(s): R10.10 - Upper abdominal pain, unspecified Condition: Improved Disposition: HOME - Additional Discharge Information Prescriptions: Ondansetron HCl [Zofran] 4 mg SL TID PRN #9 tablet PRN Reason: Nausea - Follow up/Referral Referrals: Jose Monge MD [Primary Care Provider] - Juan Francisco Johnson MD [Staff Physician] - - Patient Discharge Instructions Patient Printed Discharge Instructions: Gastroesophageal Reflux Disease (Alter lummi Therapy), Peptic Ulcer, Acute Abdominal Pain Additional Instructions: You came to the ED for abdominal pain. This is most likely due to a peptic ulcer or Gastric reflux. At the ED we gave you pepcid, maalox, viscous lidocaine, and zofran. We also sam labs and imaging which were all normal. Please follow up with your PCP within one week. Please continue to take your prescribed omeprazole as prescribed, which is take one 20mg tablet 30 minutes before dinner everyday. I also prescribed you zofran which you should take one tablet every 8 hours when needed. Please call [facility] Elliott to set up an appointment within one week. Please also call your PCP to set up a follow up appointment within one week. If you have any of the following please return: - worsening abdominal pain - unable to eat anything by mouth - uncontrollable vomiting. If you have any emergent symptoms please call for medical help right away. - Post Discharge Activity
[2019-11-25] MEDS ORDERED: FAMOTIDINE 20 MG/50 ML IVPB 20 MG/50 ML MG IVPB ONE ×2 (14:56→15:06)
[2019-11-25] MEDS ORDERED: LIDOCAINE VISCOUS 2% ORAL/TOP 20 ML UNIT-DOSE CUP MM ONE (14:57)
[2019-11-25] MEDS ORDERED: MAG HYDROX/AL HYDROX/SIMETH 30 ML UNIT-DOSE CUP PO ONE (14:57)
[2019-11-25] MEDS ORDERED: MAG HYDROX/AL HYDROX/SIMETH 30 ML UNIT-DOSE CUP ONE (15:06)
[2019-11-25] MEDS ORDERED: LIDOCAINE VISCOUS 2% ORAL/TOP 20 ML UNIT-DOSE CUP ONE (15:06)
[2019-11-25] MEDS ORDERED: ONDANSETRON 4 MG/2 ML VIAL IVPB ONE (15:32)
--- OUTSIDE RECORDS SUMMARY | 2019-11-25 15:32 | XMS ---
:1965 [facility] Providers Name Role Phone Tavon, Ramón Unavailable Unavailable Taovn, Ramón Unavailable Unavailable Tavon, Ramón Unavailable Unavailable Tavon, Ramón Unavailable Unavailable Tavon, Ramón Unavailable Unavailable Tavon, Ramón Unavailable Unavailable Tavon, Ramón Unavailable Unavailable Tavon, Ramón Unavailable Unavailable Nowakiwskyj, Skye Unavailable Unavailable Nowakiwskyj, Skye Unavailable Unavailable Nowakiwskyj, Skye Unavailable Unavailable Nowakiwskyj, Skye Unavailable Unavailable Nowakiwskyj, Skye Unavailable Unavailable Nowakiwskyj, Skye Unavailable Unavailable Nowakiwskyj, Skye Unavailable Unavailable Nowakiwskyj, Skye Unavailable Unavailable Nowakiwskyj, Skye Unavailable Unavailable Nowakiwskyj, Skye Unavailable Unavailable Smith, Doreen C Unavailable Unavailable Smith, C Unavailable Unavailable Smith, C Unavailable Unavailable Smith, C Unavailable Unavailable Smith, C Unavailable Unavailable Smith, C Unavailable Unavailable Smith, C Unavailable Unavailable Smith, C Unavailable Unavailable Smith, C Unavailable Unavailable Coloka-Kump, DO Unavailable Unavailable Coloka-Kump, DO Unavailable Unavailable Coloka-Kump, DO Unavailable Unavailable Coloka-Kump, DO Unavailable Unavailable Coloka-Kump, DO Unavailable Unavailable Coloka-Kump, DO Unavailable Unavailable Coloka-Kump, DO Unavailable Unavailable Coloka-Kump, DO Unavailable Unavailable Coloka-Kump, DO Unavailable Unavailable Coloka-Kump, DO Unavailable Unavailable Coloka-Kump, DO Unavailable Unavailable Coloka-Kump, DO Unavailable Unavailable Coloka-Kump, DO Unavailable Unavailable Coloka-Kump, DO Unavailable Unavailable Coloka-Kump, DO Unavailable Unavailable Coloka-Kump, DO Unavailable Unavailable Coloka-Kump, DO Unavailable Unavailable Domo Unavailable Domo Unavailable Domo Unavailable Domo Unavailable Domo Unavailable Aszalos, Marisa Unavailable Unavailable Aszalos, Marisa Unavailable Unavailable Aszalos, Marisa Unavailable Unavailable Aszalos, Marisa Unavailable Unavailable Aszalos, Marisa Unavailable Unavailable Aszalos, Marisa Unavailable Unavailable Aszalos, Marisa Unavailable Unavailable Aszalos, Marisa Unavailable Unavailable Aszalos, Marisa Unavailable Unavailable [facility] Unavailable Unavailable Khloe Long MD Unavailable Unavailable Khloe Long MD Unavailable Unavailable Khloe Long MD Unavailable Unavailable Khloe Long MD Unavailable Unavailable Khloe Long MD Unavailable Unavailable Khloe Long MD Unavailable Unavailable Khloe Long MD Unavailable Unavailable Khloe Long MD Unavailable Unavailable Khloe Long MD Unavailable Unavailable Khloe Long MD Unavailable Unavailable Khloe Long MD Unavailable Unavailable Khloe Long MD Unavailable Unavailable Khloe Long MD Unavailable Unavailable Khloe Long MD Unavailable Unavailable Khloe Long MD Unavailable Unavailable Robin Unavailable Unavailable Robin Unavailable Unavailable Robin Unavailable Unavailable Robin Unavailable Unavailable Elizabeth ORNELAS MD Unavailable + Elizabeth ORNELAS MD Unavailable + Elizabeth ORNELAS MD Unavailable + Re-disclosure Warning The records that you are about to access may contain information from federally- assisted alcohol or drug abuse programs. If such information is present, then the following federally mandated warning applies: This information has been disclosed to you from records protected by federal confidentiality rules (42 CFR part 2). The federal rules prohibit you from making any further disclosure of this information unless further disclosure is expressly permitted by the written consent of the person to whom it pertains or as otherwise permitted by 42 CFR part 2. A general authorization for the release of medical or other information is NOT sufficient for this purpose. The Federal rules restrict any use of the information to criminally investigate or prosecute any alcohol or drug abuse patient.The records that you are about to access may contain highly sensitive health information, the redisclosure of which is protected by Article 27-F of the [facility] Public Health law. If you continue you may haveaccess to information: Regarding HIV / AIDS; Provided by facilities licensed or operated by the [facility] Office of Mental Health; or Provided by the [facility] Office for People With Developmental Disabilities. If such information is present, then the following [facility] mandated warning applies: This information has been disclosed to you from confidential records which are protected by state law. State law prohibits you from making any further disclosure of this information without the specific written consent of the person to whom it pertains, or as otherwise permitted by law. Any unauthorized further disclosure in violation of state law may result in a fine or long term sentence or both. A general authorization for the release of medical or other information is NOT sufficient authorization for further disclosure. Family History Family Member Family Member Family Member Date of Description Data Source(s) Name Gender Status Status Unknown Female Diagnosis 03/17/2018 NEXTGEN ([facility] 12:00:00 AM [facility]) Unknown Female Diagnosis 03/17/2018 NEXTGEN ([facility] 12:00:00 AM [facility]) Encounters Encounter Providers Location Date Indications Data Source(s ) Attender: Skye 11/23/2019 MEDGEN ([facility] 12:[facility] AM [facility], ) EDT Office Attender: Skye 11/23/2019 12:00:00 AM EDT MEDGEN ([facility], ) Office Attender: Skye 11/23/2019 12:00:00 AM EDT MEDGEN ([facility], ) Office Attender: Skye 11/23/2019 12:00:00 AM EDT MEDGEN ([facility], ) Office Attender: Skye 11/23/2019 12:00:00 AM EDT MEDGEN ([facility], ) Office Attender: Skye 11/23/2019 12:00:00 AM EDT MEDGEN ([facility], ) Office Outpatient Attender: PAVITHRA ROMEO 11/22/2019 06:10:17 PM I ([facility] EDT Collaborative) Patient admitted. Attender: MD Lupillo Johnson 09/20/2019 12:00:00 A M EDT [facility] ([facility] ) Office Attender: MD Lupillo Johnson 09/20/2019 12:00:00 A M EDT [facility]GEN ([facility] ) Office Attender: MD Lupillo Johnson 09/20/2019 12:00:00 A M EDT MEDGEN ([facility] ) Office Attender: MD Lupillo Johnson 09/20/2019 12:00:00 A M EDT [facility]GEN ([facility] ) Office Attender: MD Lupillo Johnson 09/20/2019 12:00:00 A M EDT MEDGEN ([facility], ) Office Attender: MD Lupillo Johnson 09/20/2019 12:00:00 A M EDT [facility]GEN ([facility], ) Office Attender: MD Lupillo Johnson 09/20/2019 12:00:00 A M EDT [facility]GEN ([facility], ) Office Attender: MD Lupillo Johnson 09/20/2019 12:00:00 A M EDT MEDGEN ([facility], ) Office Attender: MD Lupillo Johnson 09/20/2019 12:00:00 A M EDT MEDGEN ([facility], ) Office Attender: MD Lupillo Johnson 09/20/2019 12:00:00 A M EDT MEDGEN ([facility], ) Office Outpatient Attender: PAVITHRA DHALIWALCCC 09/18/2019 01:13:44 PM GSI ([facility] EDT Collaborative) Patient admitted. Attender: Matthew Oliveros 08/09/2019 12:00:00 AM E DT [facility] ([facility] Office Attender: Matthew Oliveros 08/09/2019 12:00:00 AM E DT MEDGEN ([facility]) Office Attender: Matthew Oliveros 08/09/2019 12:00:00 AM E DT MEDGEN ([facility] Office Attender: Matthew Oliveros 08/09/2019 12:00:00 AM E DT MEDGEN ([facility]) Office Attender: Matthew Oliveros 08/09/2019 12:00:00 AM E DT MEDGEN ([facility]) Office Outpatient Attender: [id number] 05/07/2019 07:17:00 AM GSI ([facility] EDT [facility]) Patient admitted. Attender: [facility] 01/25/2019 11:15:00 NEXTGEN ([facility] AM EST - 01/25/2019 [facility] 11:15:00 AM EST Center) Attender: [facility] 01/16/2019 12:56:00 NEXTGEN ([facility] PM EST - 01/16/2019 [facility] 12:56:00 PM EST Center) Attender: [facility] 12/07/2018 11:37:00 NEXTGEN ([facility] AM EDT - 12/07/2018 [facility] 11:37:00 AM EDT Center) Attender: C[facility] 11/26/2018 11:34:00 NEXTGEN ([facility] AM EDT - 11/26/2018 [facility] Medical 11:34:00 AM EDT Center) Attender: [facility] 11/26/2018 11:33:00 NEXTGEN ([facility] EDT - 11/26/2018 [facility] 11:33:00 AM EDT Center) Attender: [facility] 11/26/2018 11:31:00 NEXTGEN ([facility] EDT - 11/26/2018 [facility] 11:31:00 AM EDT Center) Attender: [facility] 11/18/2018 04:27:00 NEXTGEN ([facility] PM EDT - 11/18/2018 [facility] 04:27:00 PM EDT Center) Emergency H 11/15/2018 05:12:00 [facility] EDT - 11/15/2018 [facility] 09:48:00 PM EDT Patient discharged. Attender: [facility] 11/09/2018 10:13:00 A M NEXTGEN ([facility] EDT - 11/09/2018 [facility] 10:13:00 AM EDT Center) Attender: Makenna Ethan [facility] 10/28/2018 09:33:00 A M NEXTGEN ([facility] EDT - 10/28/2018 [facility] 09:33:00 AM EDT Center) Attender: Christ[facility] 10/14/2018 12:45:00 P M NEXTGEN ([facility] EDT - 10/14/2018 [facility] 12:45:00 PM EDT Center) Attender: Cindi [facility] 10/08/2018 03:54:00 PM NEXTGEN ([facility] EDT - 10/08/2018 [facility] 03:54:00 PM EDT Center) Attender: Makenna Long [facility] 10/02/2018 01:43:00 P M NEXTGEN ([facility] EDT - 10/02/2018 [facility] 01:43:00 PM EDT Center) Immunizations Vaccine Date Status Description Data Source(s) New in 2011. IIV4 11/23/2019 12:00:00 completed ME DGEN ([facility] New in 2011. IIV4 12/16/2018 12:00:00 completed ME DGEN ([facility]) New in 2011. IIV4 12/16/2018 12:00:00 completed ME DGEN ([facility]) New in 2011. IIV4 12/16/2018 12:00:00 completed ME DGEN ([facility]) New in 2011. IIV4 12/16/2018 12:00:00 completed ME DGEN ([facility]) Medications Medication Brand Start Product Dose Route Administrative Pharmacy [facility] Indications Reaction Description Data Name Date Form Instructions Instructions Source(s) Omeprazole OMEPRA 11/22/ DELAYED 30 complet OMEP RAZOLE MEDGEN (St 20 MG ZOLE:1 2019 RELEASE ed [facility] Delayed 09738 12:00: CAPSULE Medica l, Release 00 AM PC) Oral EDT Capsule OMEPRAZOLE: [id number] 24 HR METOPR 09/19/ TABLET, 30 complet METOPROLO L MEDGEN (St metoprolol OLOL 2020 EXTENDED ed SUCCINATE ER [facility] succinate SUCCIN 12:00: RELEASE Med ical, 25 MG ATE 00 AM PC) Extended ER:866 EDT Release 427 Oral Tablet METOPROLOL SUCCINATE ER:623301 nabumetone NABUME 09/19/ TABLET 30 complet NABUM ETONE MED[facility] (St 750 MG Oral TONE:3 2019 [facility] Tablet 77486 12:00: Medical, NABUMETONE: 00 AM PC) 509002 EDT Omeprazole OMEPRA 09/19/ DELAYED 30 complet OMEP RAZOLE MED[facility] (St 20 MG ZOLE:1 2019 RELEASE ed [facility] Delayed 57423 12:00: CAPSULE Medica l, Release 00 AM PC) Oral EDT Capsule OMEPRAZOLE: [id number] Metformin METFOR 09/19/ TABLET 60 complet METFOR MIN MEDGEN (St hydrochlori MIN:86 2019 [facility] de 1000 MG 1004 12:00: Medical , Oral Tablet 00 AM PC) METFORMIN:8 EDT 85627 Docusate DOCUSA 09/19/ CAPSULE 60 complet DOCUSA TE MEDGEN (St Sodium 100 TE:111 2019 ed [facility] MG Oral 5005 12:00: Medical, Capsule 00 AM PC) DOCUSATE:11 EDT 95696 atorvastati ATORVA 09/19/ TABLET 30 complet ATOR VASTATIN MEDGEN (St n 40 MG STATIN 2019 [facility] Oral Tablet :21059 12:00: Medi fátima, ATORVASTATI 1 00 AM PC) N:[id number] EDT Amlodipine AMLODI 09/19/ TABLET 30 complet AMLOD IPINE [facility] (St 5 MG Oral PINE:1 2019 [facility] Tablet 19965 12:00: Medical, AMLODIPINE: 00 AM PC) 944533 EDT Albuterol ALBUTE 09/19/ SOLUTION 90 complet ALBU TEROL [facility] (St 0.417 MG/ML ROL:35 2019 ed [facility] Inhalant 1136 12:00: Medical, Solution 00 AM PC) ALBUTEROL:3 EDT 73678 ferrous FERROU 09/19/ TABLET 60 complet FERROUS MEDGEN (St sulfate 325 S 2019 ed SULFATE [facility] MG Oral SULFAT 12:00: Medical, Tablet E:3103 00 AM PC) FERROUS 25 EDT SULFATE:310 325 Escitalopra LEXAPR 09/19/ TABLET 30 complet JANETT PRO MED[facility] (St m 5 MG Oral O:4044 2019 ed [facility] Tablet 08 12:00: Medical, [Lexapro] 00 AM PC) LEXAPRO:404 EDT 408 Enalapril ENALAP 09/19/ TABLET 60 complet ENALAP RIL MEDGEN (St Maleate 20 RIL 2019 ed MALEATE [facility] MG Oral MALEAT 12:00: Medical, Tablet E:8588 00 AM PC) ENALAPRIL 10 EDT MALEATE:858 810 Escitalopra LEXAPR 09/19/ TABLET 30 complet JANETT PRO MEDGEN (St m 5 MG Oral O:4044 2019 [facility] Tablet 08 12:00: Medical, [Lexapro] 00 AM PC) LEXAPRO:404 EDT 408 24 HR METOPR 09/19/ TABLET, 30 complet METOPROLO L MEDGEN (St metoprolol OLOL 2020 EXTENDED ed SUCCINATE ER [facility] succinate SUCCIN 12:00: RELEASE Med ical, 25 MG ATE 00 AM PC) Extended ER:866 EDT Release 427 Oral Tablet METOPROLOL SUCCINATE ER:302472 gabapentin GABAPE 09/19/ TABLET 90 complet GABAP ENTIN MED[facility] (St 800 MG Oral NTIN:3 2019 [facility] Tablet 31414 12:00: Medical, GABAPENTIN: 00 AM PC) 193153 EDT Metformin METFOR 09/19/ TABLET 60 complet METFOR MIN MEDGEN (St hydrochlori MIN:86 2019 [facility] de 1000 MG 1004 12:00: Medical , Oral Tablet 00 AM PC) METFORMIN:8 EDT 82642 Omeprazole OMEPRA 09/19/ DELAYED 30 complet OMEP RAZOLE [facility] (St 20 MG ZOLE:1 2020 RELEASE [facility] Delayed 79885 12:00: CAPSULE Medica l, Release 00 AM PC) Oral EDT Capsule OMEPRAZOLE: [id number] Docusate DOCUSA 09/19/ CAPSULE 60 complet DOCUSA TE MEDGEN (St Sodium 100 TE:111 2019 [facility] MG Oral 5005 12:00: Medical, Capsule 00 AM PC) DOCUSATE:11 EDT 51828 24 HR METOPR 09/19/ TABLET, 30 complet METOPROLO L MEDGEN (St metoprolol OLOL 2020 EXTENDED ed SUCCINATE ER [facility] succinate SUCCIN 12:00: RELEASE Med ical, 25 MG ATE 00 AM PC) Extended ER:866 EDT Release 427 Oral Tablet METOPROLOL SUCCINATE ER:168717 nabumetone NABUME 09/19/ TABLET 30 complet NABUM ETONE MED[facility] (St 750 MG Oral TONE:3 2019 [facility] Tablet 53768 12:00: Medical, NABUMETONE: 00 AM PC) [id number] EDT Escitalopra LEXAPR 09/19/ TABLET 30 complet JANETT PRO MEDGEN (St m 5 MG Oral O:4044 2019 [facility] Tablet 08 12:00: Medical, [Lexapro] 00 AM PC) LEXAPRO:404 EDT 408 Metformin METFOR 09/19/ TABLET 60 complet METFOR MIN MEDGEN (St hydrochlori MIN:86 2019 [facility] de 1000 MG 1004 12:00: Medical , Oral Tablet 00 AM PC) METFORMIN:8 EDT 16713 ferrous FERROU 09/19/ TABLET 60 complet FERROUS MEDGEN (St sulfate 325 S 2019 ed SULFATE [facility] MG Oral SULFAT 12:00: Medical, Tablet E:3103 00 AM PC) FERROUS 25 EDT SULFATE:310 325 atorvastati ATORVA 09/19/ TABLET 30 complet ATOR VASTATIN MED[facility] (St n 40 MG STATIN 2019 [facility] Oral Tablet :61378 12:00: Medi fátima, ATORVASTATI 1 00 AM PC) N:[id number] EDT gabapentin GABAPE 09/19/ TABLET 90 complet GABAP ENTIN MED[facility] (St 800 MG Oral NTIN:3 2019 [facility] Tablet 78466 12:00: Medical, GABAPENTIN: 00 AM PC) 868115 EDT Enalapril ENALAP 09/19/ TABLET 60 complet ENALAP RIL MEDGEN (St Maleate 20 RIL 2019 ed MALEATE [facility] MG Oral MALEAT 12:00: Medical, Tablet E:8588 00 AM PC) ENALAPRIL 10 EDT MALEATE:858 810 Docusate DOCUSA 09/19/ CAPSULE 60 complet DOCUSA TE MEDGEN (St Sodium 100 TE:111 2019 [facility] MG Oral 5005 12:00: Medical, Capsule 00 AM PC) DOCUSATE:11 EDT 00280 Enalapril ENALAP 09/19/ TABLET 60 complet ENALAP RIL MEDGEN (St Maleate 20 RIL 2019 ed MALEATE [facility] MG Oral MALEAT 12:00: Medical, Tablet E:8588 00 AM PC) ENALAPRIL 10 EDT MALEATE:858 810 atorvastati ATORVA 09/19/ TABLET 30 complet ATOR VASTATIN MED[facility] (St n 40 MG STATIN 2019 [facility] Oral Tablet :40025 12:00: Medi fátima, ATORVASTATI 1 00 AM PC) N:[id number] EDT Amlodipine AMLODI 09/19/ TABLET 30 complet AMLOD IPINE [facility] (St 5 MG Oral PINE:1 2019 [facility] Tablet 92122 12:00: Medical, AMLODIPINE: 00 AM PC) [id number] EDT Albuterol ALBUTE 09/19/ SOLUTION 90 complet ALBU TEROL [facility] (St 0.417 MG/ML ROL:35 2019 [facility] Inhalant 1136 12:00: Medical, Solution 00 AM PC) ALBUTEROL:3 EDT 36755 ferrous FERROU 09/19/ TABLET 60 complet FERROUS MEDGEN (St sulfate 325 S 2019 ed SULFATE [facility] MG Oral SULFAT 12:00: Medical, Tablet E:3103 00 AM PC) FERROUS 25 EDT SULFATE:310 325 gabapentin GABAPE 09/19/ TABLET 90 complet GABAP ENTIN MED[facility] (St 800 MG Oral NTIN:3 2019 [facility] Tablet 78630 12:00: Medical, GABAPENTIN: 00 AM PC) 810573 EDT Amlodipine AMLODI 09/19/ TABLET 30 complet AMLOD IPINE [facility] (St 5 MG Oral PINE:1 2019 [facility] Tablet 91671 12:00: Medical, AMLODIPINE: 00 AM PC) [id number] EDT Albuterol ALBUTE 09/19/ SOLUTION 90 complet ALBU TEROL MED[facility] (St 0.417 MG/ML ROL:35 2019 [facility] Inhalant 1136 12:00: Medical, Solution 00 AM PC) ALBUTEROL:3 EDT 97906 Albuterol ALBUTE 08/08/ SOLUTION 90 complet ALBU TEROL MEDGEN (St 0.417 MG/ML ROL:35 2019 [facility] Inhalant 1136 12:00: Medical, Solution 00 AM PC) ALBUTEROL:3 EDT 80630 Trazodone TRAZOD 08/08/ TABLET 60 complet TRAZOD ONE [facility] (St Hydrochlori ONE:85 2019 [facility] de 100 MG 6373 12:00: Medical, Oral Tablet 00 AM PC) TRAZODONE:8 EDT 21475 Amlodipine AMLODI 08/08/ TABLET 30 complet AMLOD IPINE MED[facility] (St 5 MG Oral PINE:1 2019 [facility] Tablet 76929 12:00: Medical, AMLODIPINE: 00 AM PC) 934714 EDT atorvastati ATORVA 08/08/ TABLET 30 complet ATOR VASTATIN MEDGEN (St n 40 MG STATIN 2019 [facility] Oral Tablet :59361 12:00: Medi fátima, ATORVASTATI 1 00 AM PC) N:[id number] EDT Enalapril ENALAP 08/08/ TABLET 60 complet ENALAP RIL MEDGEN (St Maleate 20 RIL 2019 ed MALEATE [facility] MG Oral MALEAT 12:00: Medical, Tablet E:8588 00 AM PC) ENALAPRIL 10 EDT MALEATE:858 810 Escitalopra LEXAPR 08/08/ TABLET 30 complet JANETT PRO MEDGEN (St m 5 MG Oral O:4044 2019 ed [facility] Tablet 08 12:00: Medical, [Lexapro] 00 AM PC) LEXAPRO:404 EDT 408 gabapentin GABAPE 08/08/ TABLET 30 complet GABAP ENTIN MEDGEN (St 800 MG Oral NTIN:3 2019 [facility] Tablet 59974 12:00: Medical, GABAPENTIN: 00 AM PC) 031477 EDT 24 HR METOPR 08/08/ TABLET, 90 complet METOPROLO L MED[facility] (St metoprolol OLOL 2020 EXTENDED ed SUCCINATE ER [facility] succinate SUCCIN 12:00: RELEASE Med ical, 25 MG ATE 00 AM PC) Extended ER:866 EDT Release 427 Oral Tablet METOPROLOL SUCCINATE ER:749696 Trazodone TRAZOD 08/08/ TABLET 60 complet TRAZOD ONE MEDGEN (St Hydrochlori ONE:85 2019 [facility] de 100 MG 6373 12:00: Medical, Oral Tablet 00 AM PC) TRAZODONE:8 EDT 19361 Trazodone TRAZOD 08/08/ TABLET 60 complet TRAZOD ONE MEDGEN (St Hydrochlori ONE:2019 [facility] de 100 MG 6373 12:00: Medical, Oral Tablet 00 AM PC) TRAZODONE:8 EDT 18758 Trazodone TRAZOD 08/08/ TABLET 60 complet TRAZOD ONE MEDGEN (St Hydrochlori ONE:2019 [facility] de 100 MG 6373 12:00: Medical, Oral Tablet 00 AM PC) TRAZODONE:8 EDT 06231 Omeprazole OMEPRA 08/08/ DELAYED 30 complet OMEP RAZOLE MED[facility] (St 20 MG ZOLE:2019 RELEASE [facility] Delayed 40950 12:00: CAPSULE Medica l, Release 00 AM PC) Oral EDT Capsule OMEPRAZOLE: 779063 Docusate DOCUSA 03/10/ CAPSULE 60 complet DOCUSA TE MEDGEN (St Sodium 100 TE:111 2019 ed [facility] MG Oral 5005 12:00: Medical, Capsule 00 AM PC) DOCUSATE:11 EST 13406 Metformin METFOR 03/10/ TABLET 60 complet METFOR MIN MEDGEN (St hydrochlori MIN:86 2019 [facility] de 1000 MG 1004 12:00: Medical , Oral Tablet 00 AM PC) METFORMIN:8 EST 71524 Metformin METFOR ORAL active TAKE 2 NE XTGEN hydrochlori MIN 2019 {tbl} TABLET BY (S aint de 500 MG TAB 12:00: ORAL ROUTE 2 [facility] Oral Tablet 500MG 00 AM TIMES EVERY Medical METFORMIN EST DAY WITH Center ) TAB 500MG MORNING AND EVENING MEALS Simvastatin simvas ORAL active take 1 NEXTGEN 20 MG Oral tatin 2019 {tbl} tablet by (S aint Tablet 20 mg 12:00: oral route [facility] simvastatin tablet 00 AM every day in Medical 20 mg EST the evening Center) tablet Omeprazole omepra ORAL active take 1 N EXTGEN 20 MG zole 2019 {caps capsule by ([facility] Delayed 20 mg 12:00: ule} oral route [facility] Release capsul 00 AM every day 30 M edical Oral e,norbert EST minutes to 1 Cente r) Capsule yed hour before omeprazole releas a meal 20 mg e capsule,del ayed release Trazodone trazod ORAL active TAKE 1 NE XTGEN Hydrochlori one 2019 {tbl} TABLET BY (S aint de 100 MG 100 mg 12:00: ORAL ROUTE 2 [facility] Oral Tablet tablet 00 AM TIMES EVER Y Medical trazodone EDT DAY AFTER Cente r) 100 mg MEALS tablet Simvastatin simvas ORAL complet take 1 NEXTGEN 20 MG Oral tatin 2018 {tbl} ed tablet by (S aint Tablet 20 mg 12:00: oral route [facility] simvastatin tablet 00 AM every day in Medical 20 mg EDT the evening Center) tablet Omeprazole omepra ORAL complet take 1 NEXTGEN 20 MG zole 2019 {caps ed capsule by ([facility] Delayed 20 mg 12:00: ule} oral route [facility]ap[facility] eph[facility] Release capsul 00 AM every day 30 M edical Oral e,norbert EDT minutes to 1 Cente r) Capsule yed hour before omeprazole releas a meal 20 mg e capsule,del ayed release Metformin METFOR ORAL complet TAKE 2 N EXTGEN hydrochlori MIN 2019 {tbl} ed TABLET BY (S aint de 500 MG 500 MG 12:00: ORAL ROUTE 2 [facility] Oral Tablet 00 AM TIMES EVERY Medical METFORMIN *HERIT EDT DAY WITH Cent er) 500 MG AGE* MORNING AND *HERITAGE* EVENING MEALS Enalapril enalap ORAL active TAKE 1 NE XTGEN Maleate 20 ril 2019 {tbl} TABLET BY (Sa int MG Oral maleat 12:00: ORAL ROUTE Alysia sephs Tablet e 20 00 AM EVERY DAY Medical enalapril mg EDT Center) maleate 20 tablet mg tablet Simvastatin simvas ORAL complet take 1 NEXTGEN 20 MG Oral tatin 2019 {tbl} ed tablet by (S aint Tablet 20 mg 12:00: oral route [facility] simvastatin tablet 00 AM every day in Medical 20 mg EDT the evening Center) tablet Omeprazole omepra ORAL complet take 1 NEXTGEN 20 MG zole 2019 {caps ed capsule by ([facility] Delayed 20 mg 12:00: ule} oral route Swapnil eph[facility] Release capsul 00 AM every day 30 M edical Oral e,norbert EDT minutes to 1 Cente r) Capsule yed hour before omeprazole releas a meal 20 mg e capsule,del ayed release Metformin metfor ORAL complet take 2 N EXTGEN hydrochlori min 2018 {tbl} ed tablet by (S aint de 500 MG 500 mg 12:00: oral route 2 Felix Oral Tablet tablet 00 AM times ever y Medical metformin EDT day with Center ) 500 mg morning and tablet evening meals patient needs to be seen by PMD Omeprazole 20 OMEPRAZOLE 09/15/2018 1.00 ORAL completed TAKE 1 NEXTGEN MG Delayed CAP 20MG 12:00:00 AM {capsule} CAPSULE ([facility] Release Oral EDT BY ORAL [facility] Capsule ROUTE Medical OMEPRAZOLE EVERY Center) CAP 20MG DAY 30 MINUTES TO 1 HOUR BEFORE A MEAL Simvastatin 20 SIMVASTATIN 09/14/2018 1.00 {tbl} ORAL comple clovis TAKE 1 NEXTGEN MG Oral Tablet TAB 20MG 12:00:00 AM TABLET ([facility] SIMVASTATIN TAB ACC EDT BY ORAlissa [place] 20MG ACC ROUTE Medica l EVERY Center) DAY IN THE EVENING Enalapril ENALAPRIL 08/21/2018 1.00 {tbl} ORAL completed TAKE 1 NEXTGEN Maleate 20 MG TAB 20MG 12:00:00 AM TABLET ([facility] Oral Tablet EDT BY ORAL [facility] ENALAPRIL ROUTE Medical TAB 20MG EVERY Center) DAY Trazodone TRAZODONE 07/06/2018 1.00 {tbl} ORAL completed TAKE 1 NEXTGEN Hydrochloride TAB 100MG 12:00:00 AM TABLET ([facility] 100 MG Oral EDT BY ORAL [facility] Tablet ROUTE 2 Medical TRAZODONE TIMES Center) TAB 100MG EVERY DAY AFTER MEALS Insurance Providers Payer name Policy type Policy ID Covered Covered constitution party's Policy P claudia / Coverage constitution party ID relationship to Tubbs Inf ormation type tubbs MARY CARMEN [id number] 100 HEALTH NON [facility] MARY CARMEN [id number] 1 [id number] 100 CARE [place] MARY CARMEN [place] [id number] 01 [id number] 100 CARE [place] MARY CARMEN [place] [id number] 100 CARE [place] [id number] CARE CHILO W [id number] MARY CARMEN [place] [id number] 100 CARE Problems, Conditions, and Diagnoses Code Display Name Description Problem Effective Data Type Dates Source(s) Z23 Encounter for ENCOUNTER FOR Problem 11/23/2019 MEDGEN ( St immunization IMMUNIZATION 12:00:00 AM [facility], ) K21.9 Gastro-esophageal GASTRO-ESOPHAGEAL Problem 11/23/2019 MEDGEN (St reflux disease without REFLUX DISEASE WITHOUT 1 2:00:00 AM [facility] esophagitis ESOPHAGITIS [facility], ) B07.8 Other viral warts OTHER VIRAL WARTS Problem 09/20/2019 MEDGEN (St 12:00:00 AM [facility], ) B07.8 Other viral warts OTHER VIRAL WARTS Problem 09/20/2019 MEDGEN (St 12:00:00 AM [facility], ) B07.8 Other viral warts OTHER VIRAL WARTS Problem 09/20/2019 MEDGEN (St 12:00:00 AM [facility], ) M19.90 Unspecified UNSPECIFIED Problem 03/31/2019 MEDGEN (St osteoarthritis, OSTEOARTHRITIS, 12:00:00 AM [facility] unspecified site UNSPECIFIED SITE EST Ne dical, PC) M19.90 Unspecified UNSPECIFIED Problem 03/31/2019 MEDGEN (St osteoarthritis, OSTEOARTHRITIS, 12:00:00 AM [facility] unspecified site UNSPECIFIED SITE EST Me dical, PC) M19.90 Unspecified UNSPECIFIED Problem 03/31/2019 MEDGEN (St osteoarthritis, OSTEOARTHRITIS, 12:00:00 AM [facility] unspecified site UNSPECIFIED SITE EST Me dical, PC) M19.90 Unspecified UNSPECIFIED Problem 03/31/2019 MEDGEN (St osteoarthritis, OSTEOARTHRITIS, 12:00:00 AM [facility] unspecified site UNSPECIFIED SITE EST Ne dical, PC) F17.210 Nicotine dependence, NICOTINE DEPENDENCE, Problem 12/16 MEDGEN (St cigarettes, CIGARETTES, 12:00:00 AM [facility] uncomplicated UNCOMPLICATED [facility], ) F17.210 Nicotine dependence, NICOTINE DEPENDENCE, Problem 12/16 MEDGEN (St cigarettes, CIGARETTES, 12:00:00 AM [facility] EDT Medical, ) F17.210 Nicotine dependence, NICOTINE DEPENDENCE, Problem 12/16 MEDGEN (St cigarettes, CIGARETTES, [facility]:00:[facility] ) F17.210 Nicotine dependence, NICOTINE DEPENDENCE, Problem 12/16 MEDGEN (St cigarettes, CIGARETTES, 12:00:00 AM [facility] uncomplicated UNCOMPLICATED EDT Medical, ) K81.1 Chronic cholecystitis CHRONIC CHOLECYSTITIS Problem MED[facility] (St 12:00:00 AM [facility], ) K81.0 Acute cholecystitis ACUTE CHOLECYSTITIS Problem 019 MEDGEN (St 12:00:00 AM [facility], ) E78.5 Hyperlipidemia, HYPERLIPIDEMIA, Problem 11/11/2018 MEDG EN (St unspecified UNSPECIFIED 12:00:00 AM [facility], ) K57.92 Diverticulitis of DIVERTICULITIS OF Problem 11/11/2018 MEDGEN (St intestine, part INTESTINE, PART 12:00:00 AM [facility] unspecified, without UNSPECIFIED, WITHOUT EDT Medical, perforation or abscess PERFORATION OR ABSCESS PC) without bleeding WITHOUT BLEEDING T46.6X1 Poisoning by POISONING BY Problem 11/11/2018 MEDGEN (St A antihyperlipidemic and ANTIHYPERLIPIDEMIC AND 1 2:00:00 AM [facility] antiarteriosclerotic ANTIARTERIOSCLEROTIC EDT Medical, drugs, accidental DRUGS, ACCIDENTAL PC) (unintentional), (UNINTENTIONAL), initial encounter INITIAL ENCOUNTER F41.9 Anxiety disorder, ANXIETY DISORDER, Problem 11/11/2018 MEDGEN (St unspecified UNSPECIFIED 12:00:00 AM [facility], ) F33.9 Major depressive MAJOR DEPRESSIVE Problem 11/11/2018 [place] DGEN (St disorder, recurrent, DISORDER, RECURRENT, 12:00 :00 AM [facility] unspecified UNSPECIFIED T Medical, ) N18.9 Chronic kidney disease, CHRONIC KIDNEY Problem 11/12/19 19 MEDGEN (St unspecified DISEASE, UNSPECIFIED 12:00:00 AM [facility] EDT Medical, ) Z00.01 Encounter for general ENCOUNTER FOR GENERAL Problem MEDGEN (St adult medical ADULT MEDICAL 12:00:00 AM [facility] examination with EXAMINATION WITH EDT Me dical, abnormal findings ABNORMAL FINDINGS PC) K81.1 Chronic cholecystitis CHRONIC CHOLECYSTITIS Problem MEDGEN (St 12:00:00 AM [facility], ) K81.0 Acute cholecystitis ACUTE CHOLECYSTITIS Problem 019 MEDGEN (St 12:00:00 AM [facility], ) E78.5 Hyperlipidemia, HYPERLIPIDEMIA, Problem 11/11/2018 MEDG EN (St unspecified UNSPECIFIED 12:00:00 AM [facility], ) K57.92 Diverticulitis of DIVERTICULITIS OF Problem 11/11/2018 MEDGEN (St intestine, part INTESTINE, PART 12:00:00 AM [facility] unspecified, without UNSPECIFIED, WITHOUT EDT Medical, perforation or abscess PERFORATION OR ABSCESS PC) without bleeding WITHOUT BLEEDING T46.6X1 Poisoning by POISONING BY Problem 11/11/2018 MEDGEN (St A antihyperlipidemic and ANTIHYPERLIPIDEMIC AND 1 2:00:00 AM [facility] antiarteriosclerotic ANTIARTERIOSCLEROTIC EDT Medical, drugs, accidental DRUGS, ACCIDENTAL PC) (unintentional), (UNINTENTIONAL), initial encounter INITIAL ENCOUNTER F41.9 Anxiety disorder, ANXIETY DISORDER, Problem 11/11/2018 MEDGEN (St unspecified UNSPECIFIED 12:00:00 AM [facility] Medical, ) F33.9 Major depressive MAJOR DEPRESSIVE Problem 11/11/2018 [place] DGEN (St disorder, recurrent, DISORDER, RECURRENT, 12:00 :00 AM [facility] unspecified UNSPECIFIED EDT Medical, ) N18.9 Chronic kidney disease, CHRONIC KIDNEY Problem 11/12/19 19 MEDGEN (St unspecified DISEASE, UNSPECIFIED 12:00:00 AM [facility] EDT Medical, ) Z00.01 Encounter for general ENCOUNTER FOR GENERAL Problem MEDGEN (St adult medical ADULT MEDICAL 12:00:00 AM [facility] examination with EXAMINATION WITH EDT Me dical, abnormal findings ABNORMAL FINDINGS PC) K81.1 Chronic cholecystitis CHRONIC CHOLECYSTITIS Problem MED[facility] (St 12:00:00 AM [facility], ) K81.0 Acute cholecystitis ACUTE CHOLECYSTITIS Problem 019 MEDGEN (St 12:00:00 AM [facility] Medical, ) E78.5 Hyperlipidemia, HYPERLIPIDEMIA, Problem 11/11/2018 MEDG EN (St unspecified UNSPECIFIED 12:00:00 AM [facility], ) K57.92 Diverticulitis of DIVERTICULITIS OF Problem 11/11/2018 MEDGEN (St intestine, part INTESTINE, PART 12:00:00 AM [facility] unspecified, without UNSPECIFIED, WITHOUT EDT Medical, perforation or abscess PERFORATION OR ABSCESS ) without bleeding WITHOUT BLEEDING T46.6X1 Poisoning by POISONING BY Problem 11/11/2018 MEDGEN (St A antihyperlipidemic and ANTIHYPERLIPIDEMIC AND 1 2:00:00 AM [facility] antiarteriosclerotic ANTIARTERIOSCLEROTIC EDT Medical, drugs, accidental DRUGS, ACCIDENTAL PC) (unintentional), (UNINTENTIONAL), initial encounter INITIAL ENCOUNTER F41.9 Anxiety disorder, ANXIETY DISORDER, Problem 11/11/2018 MEDGEN (St unspecified UNSPECIFIED 12:00:00 AM [facility], ) F33.9 Major depressive MAJOR DEPRESSIVE Problem 11/11/2018 [place] DGEN (St disorder, recurrent, DISORDER, RECURRENT, 12:00 :00 AM [facility] unspecified UNSPECIFIED T Medical, ) N18.9 Chronic kidney disease, CHRONIC KIDNEY Problem 11/12/19 19 MEDGEN (St unspecified DISEASE, UNSPECIFIED 12:00:00 AM [facility] Medical, ) Z00.01 Encounter for general ENCOUNTER FOR GENERAL Problem MEDGEN (St adult medical ADULT MEDICAL 12:00:00 AM [facility] examination with EXAMINATION WITH EDT Me dical, abnormal findings ABNORMAL FINDINGS ) K81.1 Chronic cholecystitis CHRONIC CHOLECYSTITIS Problem MEDGEN (St 12:00:00 AM [facility], ) K81.0 Acute cholecystitis ACUTE CHOLECYSTITIS Problem 019 MEDGEN (St 12:00:00 AM [facility], ) E78.5 Hyperlipidemia, HYPERLIPIDEMIA, Problem 11/11/2018 MEDG EN (St unspecified UNSPECIFIED 12:00:00 AM [facility], ) K57.92 Diverticulitis of DIVERTICULITIS OF Problem 11/11/2018 MEDGEN (St intestine, part INTESTINE, PART 12:00:00 AM [facility] unspecified, without UNSPECIFIED, WITHOUT EDT Medical, perforation or abscess PERFORATION OR ABSCESS ) without bleeding WITHOUT BLEEDING T46.6X1 Poisoning by POISONING BY Problem 11/11/2018 MEDGEN (St A antihyperlipidemic and ANTIHYPERLIPIDEMIC AND 1 2:00:00 AM [facility] antiarteriosclerotic ANTIARTERIOSCLEROTIC EDT Medical, drugs, accidental DRUGS, ACCIDENTAL PC) (unintentional), (UNINTENTIONAL), initial encounter INITIAL ENCOUNTER F41.9 Anxiety disorder, ANXIETY DISORDER, Problem 11/11/2018 MEDGEN (St unspecified UNSPECIFIED 12:00:00 AM [facility], ) F33.9 Major depressive MAJOR DEPRESSIVE Problem 11/11/2018 [place] DGEN (St disorder, recurrent, DISORDER, RECURRENT, 12:00 :00 AM [facility] unspecified UNSPECIFIED EDT Medical, ) N18.9 Chronic kidney disease, CHRONIC KIDNEY Problem 11/12/19 19 MEDGEN (St unspecified DISEASE, UNSPECIFIED 12:00:00 AM [facility] EDT Medical, ) Z00.01 Encounter for general ENCOUNTER FOR GENERAL Problem MEDGEN (St adult medical ADULT MEDICAL 12:00:00 AM [facility] examination with EXAMINATION WITH EDT Ne dical, abnormal findings ABNORMAL FINDINGS ) Z53.21 Procedure and treatment PROC/TRTMT NOT CRD OUT Diagnosis 11/15/2018 [facility] not carried out due to D/T PT LV BEF SEEN BY 05 :12:00 PM [facility] patient leaving prior [facility] EDT Medical to being seen by [facility] care provider R07.9 Chest pain, unspecified CHEST PAIN, Diagnosis 11/15/2018 [facility] UNSPECIFIED 05:12:00 PM [facility] Surgeries/Procedures Procedure Description Date Indications Data Source(s) OFFICE OUTPATIENT VISIT 11/23/2019 MEDG EN ([facility] 15 MINUTES 12:00:00 AM EDT Medical, ) FLU QUAD 36 MOS & ABOVE 11/23/2019 MEDG EN ([facility] 12:00:00 AM EDT Medical, ) IMADM PRQ ID SUBQ/IM NJXS 11/23/2019 ME DGEN ([facility] 1 VACCINE 12:00:00 AM EDT Medical, ) Documentation of current 09/20/2019 MED GEN ([facility] medications (procedure) 12:00:00 AM EDT alvaradoical, ) Documentation of current 09/20/2019 MED GEN ([facility] medications (procedure) 12:00:00 AM EDT edical, ) Documentation of current 09/20/2019 MED GEN ([facility] medications (procedure) 12:00:00 AM EDT edical, PC) Documentation of current 09/20/2019 MED GEN ([facility] medications (procedure) 12:00:00 AM EDT edical, ) Documentation of current 09/20/2019 MED GEN ([facility] medications (procedure) 12:00:00 AM EDT edical, PC) Documentation of current 09/20/2019 MED GEN ([facility] medications (procedure) 12:00:00 AM EDT edical, PC) Documentation of current 09/20/2019 MED GEN ([facility] medications (procedure) 12:00:00 AM EDT edical, ) Documentation of current 09/20/2019 MED GEN ([facility] medications (procedure) 12:00:00 AM EDT edical, PC) Documentation of current 09/20/2019 MED GEN ([facility] medications (procedure) 12:00:00 AM EDT alvaradoical, ) Documentation of current 09/20/2019 MED GEN ([facility] medications (procedure) 12:00:00 AM EDT alvaradoical, PC) Documentation of current 09/20/2019 MED GEN ([facility] medications (procedure) 12:00:00 AM EDT alvaradoical, ) OFFICE OUTPATIENT VISIT 09/20/2019 MEDG EN ([facility] 25 MINUTES 12:00:00 AM EDT Medical, PC) Documentation of current 09/20/2019 MED GEN ([facility] medications (procedure) 12:00:00 AM EDT edical, ) OFFICE OUTPATIENT VISIT 09/20/2019 MEDG EN ([facility] 25 MINUTES 12:00:00 AM EDT Medical, PC) OFFICE OUTPATIENT VISIT 09/20/2019 MEDG EN ([facility] 15 MINUTES 12:00:00 AM EDT Medical, PC) Documentation of current 08/09/2019 MED GEN ([facility] medications (procedure) 12:00:00 AM EDT gisel, PC) Documentation of current 08/09/2019 MED GEN ([facility] medications (procedure) 12:00:00 AM EDT gisel, PC) Documentation of current 08/09/2019 MED GEN ([facility] medications (procedure) 12:00:00 AM EDT alvaradoical, PC) Documentation of current 08/09/2019 MED GEN ([facility] medications (procedure) 12:00:00 AM EDT gisel, PC) Documentation of current 08/09/2019 MED GEN ([facility] medications (procedure) 12:00:00 AM EDT gisel, PC) Documentation of current 08/09/2019 MED GEN ([facility] medications (procedure) 12:00:00 AM EDT gisel, PC) Documentation of current 08/09/2019 MED GEN ([facility] medications (procedure) 12:00:00 AM EDT gisel, PC) Documentation of current 08/09/2019 MED GEN ([facility] medications (procedure) 12:00:00 AM EDT gisel, PC) Documentation of current 08/09/2019 MED GEN ([facility] medications (procedure) 12:00:00 AM EDT gisel, PC) Documentation of current 08/09/2019 MED GEN ([facility] medications (procedure) 12:00:00 AM EDT gisel, PC) Documentation of current 08/09/2019 MED GEN ([facility] medications (procedure) 12:00:00 AM EDT gisel, PC) Documentation of current 08/09/2019 MED GEN ([facility] medications (procedure) 12:00:00 AM EDT gisel, PC) OFFICE OUTPATIENT VISIT 08/09/2019 MEDG EN ([facility] 25 MINUTES 12:00:00 AM EDT Medical, PC) Documentation of current 08/09/2019 MED GEN ([facility] medications (procedure) 12:00:00 AM EDT gisel, PC) Documentation of current 08/09/2019 MED GEN ([facility] medications (procedure) 12:00:00 AM EDT gisel, PC) Documentation of current 08/09/2019 MED GEN ([facility] medications (procedure) 12:00:00 AM EDT gisel, PC) Documentation of current 08/09/2019 MED GEN ([facility] medications (procedure) 12:00:00 AM EDT gisel, PC) Documentation of current 08/09/2019 MED GEN ([facility] medications (procedure) 12:00:00 AM EDT gisel, PC) Documentation of current 08/09/2019 MED GEN ([facility] medications (procedure) 12:00:00 AM EDT gisel, PC) Documentation of current 08/09/2019 MED GEN ([facility] medications (procedure) 12:00:00 AM EDT gisel, PC) Documentation of current 08/09/2019 MED GEN ([facility] medications (procedure) 12:00:00 AM EDT gisel, PC) Documentation of current 08/09/2019 MED GEN ([facility] medications (procedure) 12:00:00 AM EDT gisel, PC) Documentation of current 08/09/2019 MED GEN ([facility] medications (procedure) 12:00:00 AM EDT gisel, PC) Documentation of current 08/09/2019 MED GEN ([facility] medications (procedure) 12:00:00 AM EDT gisel, PC) Documentation of current 08/09/2019 MED GEN ([facility] medications (procedure) 12:00:00 AM EDT gisel, PC) OFFICE OUTPATIENT VISIT 08/09/2019 MEDG EN ([facility] 25 MINUTES 12:00:00 AM Shaheen Castle PC) Documentation of current 08/09/2019 MED GEN ([facility] medications (procedure) 12:00:00 AM EDT gisel PC) Documentation of current 08/09/2019 MED GEN ([facility] medications (procedure) 12:00:00 AM EDT gisel, PC) Documentation of current 08/09/2019 MED GEN ([facility] medications (procedure) 12:00:00 AM EDT gisel, PC) Documentation of current 08/09/2019 MED GEN ([facility] medications (procedure) 12:00:00 AM EDT gisel, PC) Documentation of current 08/09/2019 MED GEN ([facility] medications (procedure) 12:00:00 AM EDT gisel, PC) Documentation of current 08/09/2019 MED GEN ([facility] medications (procedure) 12:00:00 AM EDT alvaradoical, PC) Documentation of current 08/09/2019 MED GEN ([facility] medications (procedure) 12:00:00 AM EDT alvaradoical, PC) Documentation of current 08/09/2019 MED GEN ([facility] medications (procedure) 12:00:00 AM EDT gisel, PC) Documentation of current 08/09/2019 MED GEN ([facility] medications (procedure) 12:00:00 AM EDT gisel, PC) Documentation of current 08/09/2019 MED GEN ([facility] medications (procedure) 12:00:00 AM EDT gisel, PC) Documentation of current 08/09/2019 MED GEN ([facility] medications (procedure) 12:00:00 AM EDT alvaradoical, PC) Documentation of current 08/09/2019 MED GEN ([facility] medications (procedure) 12:00:00 AM EDT gisel, PC) OFFICE OUTPATIENT VISIT 08/09/2019 MEDG EN ([facility] 25 MINUTES 12:00:00 AM EDT Medical, PC) Documentation of current 08/09/2019 MED GEN ([facility] medications (procedure) 12:00:00 AM EDT gisel, PC) Documentation of current 08/09/2019 MED GEN ([facility] medications (procedure) 12:00:00 AM EDT gisel, PC) Documentation of current 08/09/2019 MED GEN ([facility] medications (procedure) 12:00:00 AM EDT gisel, PC) Documentation of current 08/09/2019 MED GEN ([facility] medications (procedure) 12:00:00 AM EDT alvaradoical, PC) Documentation of current 08/09/2019 MED GEN ([facility] medications (procedure) 12:00:00 AM EDT alvaradoical, PC) OFFICE OUTPATIENT VISIT 08/09/2019 MEDG EN ([facility] 25 MINUTES 12:00:00 AM EDT Medical, PC) OFFICE OUTPATIENT VISIT 03/31/2019 MEDG EN ([facility] 15 MINUTES 12:00:00 AM EST Medical, PC) OFFICE OUTPATIENT VISIT 03/31/2019 MEDG EN ([facility] 15 MINUTES 12:00:00 AM EST Medical, PC) OFFICE OUTPATIENT VISIT 03/31/2019 MEDG EN ([facility] 15 MINUTES 12:00:00 AM EST Medical, PC) OFFICE OUTPATIENT VISIT 03/31/2019 MEDG EN ([facility] 15 MINUTES 12:00:00 AM EST Medical, PC) OFFICE OUTPATIENT VISIT 03/10/2019 MEDG EN ([facility] 15 MINUTES 12:00:00 AM EST Medical, PC) OFFICE OUTPATIENT VISIT 03/10/2019 MEDG EN ([facility] 15 MINUTES 12:00:00 AM EST Medical, PC) OFFICE OUTPATIENT VISIT 03/10/2019 MEDG EN ([facility] 15 MINUTES 12:00:00 AM EST Medical, PC) OFFICE OUTPATIENT VISIT 03/10/2019 MEDG EN ([facility] 15 MINUTES 12:00:00 AM EST Medical, PC) Documentation of current 03/03/2019 MED GEN ([facility] medications (procedure) 12:00:00 AM BRAXTON batres, DILSHAD) Documentation of current 03/03/2019 MED GEN ([facility] medications (procedure) 12:00:00 AM BRAXTON batres, PC) Documentation of current 03/03/2019 MED GEN ([facility] medications (procedure) 12:00:00 AM BRAXTON batres, PC) Documentation of current 03/03/2019 MED GEN ([facility] medications (procedure) 12:00:00 AM BRAXTON batres, PC) Documentation of current 03/03/2019 MED GEN ([facility] medications (procedure) 12:00:00 AM BRAXTON batres, DILSHAD) Documentation of current 03/03/2019 MED GEN ([facility] medications (procedure) 12:00:00 AM BRAXTON batres, PC) Documentation of current 03/03/2019 MED GEN ([facility] medications (procedure) 12:00:00 AM BRAXTON batres, PC) Documentation of current 03/03/2019 MED GEN ([facility] medications (procedure) 12:00:00 AM BRAXTON batres, PC) Documentation of current 03/03/2019 MED GEN ([facility] medications (procedure) 12:00:00 AM BRAXTON batres, PC) Documentation of current 03/03/2019 MED GEN ([facility] medications (procedure) 12:00:00 AM BRAXTON batres, DILSHAD) Documentation of current 03/03/2019 MED GEN ([facility] medications (procedure) 12:00:00 AM BRAXTON batres, DILSHAD) Documentation of current 03/03/2019 MED GEN ([facility] medications (procedure) 12:00:00 AM BRAXTON batres, PC) Documentation of current 03/03/2019 MED GEN ([facility] medications (procedure) 12:00:00 AM BRAXTON batres, PC) Documentation of current 03/03/2019 MED GEN ([facility] medications (procedure) 12:00:00 AM BRAXTON batres, PC) Documentation of current 03/03/2019 MED GEN ([facility] medications (procedure) 12:00:00 AM BRAXTON batres, DILSHAD) OFFICE OUTPATIENT VISIT 03/03/2019 MEDG EN ([facility] 15 MINUTES 12:00:00 AM BRAXTON Castle, ) COLLECTION VENOUS BLOOD 03/03/2019 MEDG EN ([facility] VENIPUNCTURE 12:00:00 AM B[facility], ) Documentation of current 03/03/2019 MED GEN ([facility] medications (procedure) 12:00:00 AM BRAXTON batres, PC) Documentation of current 03/03/2019 MED GEN ([facility] medications (procedure) 12:00:00 AM BRAXTON batres, DILSHAD) Documentation of current 03/03/2019 MED GEN ([facility] medications (procedure) 12:00:00 AM BRAXTON batres, PC) Documentation of current 03/03/2019 MED GEN ([facility] medications (procedure) 12:00:00 AM BRAXTON batres, PC) Documentation of current 03/03/2019 MED GEN ([facility] medications (procedure) 12:00:00 AM BRAXTON batres, PC) Documentation of current 03/03/2019 MED GEN ([facility] medications (procedure) 12:00:00 AM BRAXTON batres, PC) Documentation of current 03/03/2019 MED GEN ([facility] medications (procedure) 12:00:00 AM BRAXTON batres, PC) Documentation of current 03/03/2019 MED GEN ([facility] medications (procedure) 12:00:00 AM BRAXTON batres, PC) Documentation of current 03/03/2019 MED GEN ([facility] medications (procedure) 12:00:00 AM EST DILSHAD Davalos) Documentation of current 03/03/2019 MED GEN ([facility] medications (procedure) 12:00:00 AM DILSHAD Colon) Documentation of current 03/03/2019 MED GEN ([facility] medications (procedure) 12:00:00 AM DILSHAD Colon) Documentation of current 03/03/2019 MED GEN ([facility] medications (procedure) 12:00:00 AM DILSHAD Colon) Documentation of current 03/03/2019 MED GEN ([facility] medications (procedure) 12:00:00 AM EST DILSHAD Davalos) Documentation of current 03/03/2019 MED GEN ([facility] medications (procedure) 12:00:00 AM DILSHAD Colon) Documentation of current 03/03/2019 MED GEN ([facility] medications (procedure) 12:00:00 AM DILSHAD Colon) OFFICE OUTPATIENT VISIT 03/03/2019 MEDG EN ([facility] 15 MINUTES 12:00:00 AM DILSHAD Morgan) COLLECTION VENOUS BLOOD 03/03/2019 MEDG EN ([facility] VENIPUNCTURE 12:00:00 AM DILSHAD Morgan) Documentation of current 03/03/2019 MED GEN ([facility] medications (procedure) 12:00:00 AM DILSHAD Colon) Documentation of current 03/03/2019 MED GEN ([facility] medications (procedure) 12:00:00 AM DILSHAD Colon) Documentation of current 03/03/2019 MED GEN ([facility] medications (procedure) 12:00:00 AM DILSHAD Colon) Documentation of current 03/03/2019 MED GEN ([facility] medications (procedure) 12:00:00 AM DILSHAD Colon) Documentation of current 03/03/2019 MED GEN ([facility] medications (procedure) 12:00:00 AM DILSAHD Colon) Documentation of current 03/03/2019 MED GEN ([facility] medications (procedure) 12:00:00 AM DILSHAD Colon) Documentation of current 03/03/2019 MED GEN ([facility] medications (procedure) 12:00:00 AM EST Cynthia batres, PC) Documentation of current 03/03/2019 MED GEN ([facility] medications (procedure) 12:00:00 AM DILSHAD Colon) Documentation of current 03/03/2019 MED GEN ([facility] medications (procedure) 12:00:00 AM DILSHAD Colon) Documentation of current 03/03/2019 MED GEN ([facility] medications (procedure) 12:00:00 AM DILSHAD Colon) Documentation of current 03/03/2019 MED GEN ([facility] medications (procedure) 12:00:00 AM BRAXTON batres, DILSHAD) Documentation of current 03/03/2019 MED GEN ([facility] medications (procedure) 12:00:00 AM DILSHAD Colon) Documentation of current 03/03/2019 MED GEN ([facility] medications (procedure) 12:00:00 AM DILSHAD Colon) Documentation of current 03/03/2019 MED GEN ([facility] medications (procedure) 12:00:00 AM DILSHAD Colon) Documentation of current 03/03/2019 MED GEN ([facility] medications (procedure) 12:00:00 AM BRAXTON batres, DILSHAD) OFFICE OUTPATIENT VISIT 03/03/2019 MEDG EN ([facility] 15 MINUTES 12:00:00 AM DILSHAD Morgan) COLLECTION VENOUS BLOOD 03/03/2019 MEDG EN ([facility] VENIPUNCTURE 12:00:00 AM DILSHAD Morgan) Documentation of current 03/03/2019 MED GEN ([facility] medications (procedure) 12:00:00 AM DILSHAD Colon) Documentation of current 03/03/2019 MED GEN ([facility] medications (procedure) 12:00:00 AM DILSHAD Colon) Documentation of current 03/03/2019 MED GEN ([facility] medications (procedure) 12:00:00 AM DILSHAD Colon) Documentation of current 03/03/2019 MED GEN ([facility] medications (procedure) 12:00:00 AM DILSHAD Colon) Documentation of current 03/03/2019 MED GEN ([facility] medications (procedure) 12:00:00 AM BRAXTON batres, DILSHAD) Documentation of current 03/03/2019 MED GEN ([facility] medications (procedure) 12:00:00 AM BRAXTON batres, ) Documentation of current 03/03/2019 MED GEN ([facility] medications (procedure) 12:00:00 AM BRAXTON batres PC) Documentation of current 03/03/2019 MED GEN ([facility] medications (procedure) 12:00:00 AM BRAXTON batres, ) Documentation of current 03/03/2019 MED GEN ([facility] medications (procedure) 12:00:00 AM BRAXTON batres, PC) Documentation of current 03/03/2019 MED GEN ([facility] medications (procedure) 12:00:00 AM BRAXTON batres, ) Documentation of current 03/03/2019 MED GEN ([facility] medications (procedure) 12:00:00 AM BRAXTON batres, PC) Documentation of current 03/03/2019 MED GEN ([facility] medications (procedure) 12:00:00 AM BRAXTON batres, PC) Documentation of current 03/03/2019 MED GEN ([facility] medications (procedure) 12:00:00 AM BRAXTON batres, PC) Documentation of current 03/03/2019 MED GEN ([facility] medications (procedure) 12:00:00 AM BRAXTON batres, ) Documentation of current 03/03/2019 MED GEN ([facility] medications (procedure) 12:00:00 AM EST Cynthia batres, ) OFFICE OUTPATIENT VISIT 03/03/2019 MEDG EN ([facility] 15 MINUTES 12:00:00 AM [facility] Medical, ) COLLECTION VENOUS BLOOD 03/03/2019 MEDG EN ([facility] VENIPUNCTURE 12:00:00 AM [facility] Medical, ) OFFICE OUTPATIENT VISIT 12/16/2018 MEDG EN ([facility] 15 MINUTES 12:00:00 AM EDT Medical, ) INFLUENZA VACCINE 12/16/2018 [facility] ([facility] 12:00:00 AM EDT Medical, ) OFFICE OUTPATIENT VISIT 12/16/2018 MEDG EN ([facility] 15 MINUTES 12:00:00 AM EDT Medical, ) INFLUENZA VACCINE 12/16/2018 [facility] ([facility] 12:00:00 AM EDT Medical, ) OFFICE OUTPATIENT VISIT 12/16/2018 MED[facility] EN ([facility] 15 MINUTES 12:00:00 AM EDT Medical, ) INFLUENZA VACCINE 12/16/2018 [facility] ([facility] 12:00:00 AM EDT [facility], ) OFFICE OUTPATIENT VISIT 12/16/2018 MEDG EN ([facility] 15 MINUTES 12:00:00 AM EDT [facility], ) INFLUENZA VACCINE 12/16/2018 [facility] ([facility] 12:00:00 AM EDT [facility], ) OFFICE OUTPATIENT VISIT 11/11/2018 [facility] EN [facility] ROUTINE ECG W/LEAST 11/11/2018 MEDG EN ([facility] 12 LDS W/I&R 12:00:00 AM [facility], ) COLLECTION VENOUS BLOOD 11/11/2018 MED[facility] EN ([facility] OUTPATIENT VISIT 11/11/2018 MED[facility] EN ([facility] ECG ROUTINE ECG W/LEAST 11/11/2018 MED[facility] EN ([facility] 12 LDS W/I&R 12:00:00 AM EDT [facility], ) COLLECTION VENOUS BLOOD 11/11/2018 MED[facility] EN ([facility] OFFICE OUTPATIENT VISIT 11/11/2018 MED[facility] EN ([facility] ECG ROUTINE ECG W/LEAST 11/11/2018 MED[facility] EN ([facility] 12 LDS W/I&R [facility] COLLECTION VENOUS BLOOD 11/11/2018 MEDG EN ([facility] VENIPUNCTURE 12:00:00 AM EDT [facility], ) OFFICE OUTPATIENT VISIT 11/11/2018 MED[facility] EN ([facility] 15 MINUTES [facility]00:[facility] ECG ROUTINE ECG W/LEAST 11/11/2018 MED[facility] EN ([facility] 12 LDS W/I&R [facility] COLLECTION VENOUS BLOOD 11/11/2018 MEDG EN ([facility] VENIPUNCTURE 12:00:00 AM [facility], ) Results ID Date Data Source [id number] 08/09/2019 12:00:00 AM EDT [facility] ([facility] Name Value Range Interpretation Code Description Data Margarita rce(s) Supporting Document(s ) ID Date Data Source [id number] 08/09/2019 12:00:00 AM EDT [facility] ([facility]) Name Value Range Interpretation Code Description Data Margarita rce(s) Supporting Document(s ) PDF . Normal (applies to [facility] (St non-numeric results) [facility]) ID Date Data Source [id number] 08/09/2019 12:00:00 AM EDT [facility] ([facility]) Name Value Range Interpretation Code Description Data Margarita rce(s) Supporting Document(s ) Ferritin, 23 ng/mL Normal (applies to [facility] (St Serum non-numeric [facility] results) Medical, ) ID Date Data Source [id number] 08/09/2019 12:00:00 AM EDT [facility] ([facility]) Name Value Range Interpretation Code Description Data Margarita rce(s) Supporting Document(s ) SARS-CoV- Negative Normal (applies to [facility] (St 2 non-numeric [facility] Antibody, results) Medical, ) IgG ID Date Data Source [id number] 08/09/2019 12:00:00 AM EDT [facility] ([facility]) Name Value Range Interpretation Code Description Data Margarita rce(s) Supporting Document(s ) SARS-CoV- Negative Normal (applies to [facility] (St 2 non-numeric [facility] Antibody, results) Medical, ) IgM ID Date Data Source [id number] 08/09/2019 12:00:00 AM EDT [facility] ([facility]) Name Value Range Interpretation Code Description Data Margarita rce(s) Supporting Document(s ) TSH 1.020 Normal (applies to [facility] (St uIU/mL non-numeric results) [facility]) ID Date Data Source [id number] 08/09/2019 12:00:00 AM EDT [facility] ([facility]) Name Value Range Interpretation Description Data Sup porting Code Source(s) Document(s ) Hemoglobin A1c 7.6 % Above high normal MEDGEN (St in Blood [facility], ) ID Date Data Source [id number] 08/09/2019 12:00:00 AM EDT [facility] ([facility], ) Name Value Range Interpretation Description Data Sup porting Code Source(s) Document(s ) Iron 393 ug/dL Normal (applies to [facility] (St Bind.Cap.(TIBC non-numeric [facility] ) results) Medical, ) UIBC 362 ug/dL Normal (applies to [facility] (St non-numeric [facility] results) [facility], ) Iron 31 ug/dL Normal (applies to [facility] (St [Mass/volume] non-numeric [facility] in Serum or results) Medical, ) Plasma Iron 8 % Below lower panic MEDGEN (St saturation limits [facility] [Mass [facility], ) Fraction] in Serum or Plasma ID Date Data Source [id number] 08/09/2019 12:00:00 AM EDT [facility] ([facility], ) Name Value Range Interpretation Description Data Sup porting Code Source(s) Document(s ) Cholesterol 207 Above high normal MED[facility] (St [Mass/volume] in mg/dL [facility] Serum or Plasma [facility], ) Triglyceride 360 Above high normal MED[facility] (S t [Mass/volume] in mg/dL [facility] Serum or Plasma [facility], ) HDL Cholesterol 28 mg/dL Below low normal [facility] ([facility], ) LDL Cholesterol 107 Above high normal MED[facility] (St Calc mg/dL [facility]) VLDL Cholesterol 72 mg/dL Above high normal MEDGE N ([facility]) ID Date Data Source [id number] 08/09/2019 12:00:00 AM EDT [facility] ([facility], ) Name Value Range Interpretation Description Data Sup porting Code Source(s) Document(s ) Glucose 119 Above high MED[facility] (St [Mass/volume] in mg/dL normal [facility] Urine collected for Medical, unspecified PC) duration Urea nitrogen 17 mg/dL Normal (applies [facility] (St [Mass/volume] in to non-numeric [facility] Serum or Plasma results) [facility], ) Creatinine 0.71 Normal (applies [facility] (St [Interpretation] in mg/dL to non-numeric [facility] Urine results) [facility], ) eGFR If Africn Am 113 Normal (applies [facility] (St mL/min/1 to non-numeric [facility] .73 results) Medical, PC) eGFR If NonAfricn 98 Normal (applies [facility] (St Am mL/min/1 to non-numeric [facility] .73 results) Medical, PC) BUN/Creatinine 24 Above high [facility] (St Ratio normal [facility]) Sodium 140 Normal (applies [facility] (St [Moles/volume] in mmol/L to non-numeric [facility] Serum or Plasma results) Medical, PC) Chloride 100 Normal (applies [facility] (St [Moles/volume] in mmol/L to non-numeric [facility] Serum or Plasma results) Medical, PC) Potassium 4.7 Normal (applies [facility] (St [Mass/volume] in mmol/L to non-numeric [facility] Blood results) Medical, PC) Carbon dioxide, 26 Normal (applies [facility] ( St total mmol/L to non-numeric [facility] [Moles/volume] in results) Medical, Serum or Plasma PC) Calcium 9.8 Normal (applies [facility] (St [Moles/volume] in mg/dL to non-numeric [facility] Urine collected for results) Medical, unspecified PC) duration Protein 7.7 g/dL Normal (applies [facility] (St [Mass/volume] in to non-numeric [facility] Serum or Plasma results) Medical, PC) Microalbumin 4.3 g/dL Normal (applies [facility] (St [Mass/time] in to non-numeric [facility] Urine collected for results) Medical, unspecified PC) duration Globulin, Total 3.4 g/dL Normal (applies [facility] ( St to non-numeric [facility] results) Medical, PC) Bilirubin.total 0.2 Normal (applies [facility] ( St [Mass/volume] in mg/dL to non-numeric [facility] Serum or Plasma results) Medical, PC) A/G Ratio 1.3 Normal (applies [facility] (St to non-numeric [facility] results) Medical, PC) Alkaline 100 IU/L Normal (applies [facility] (St phosphatase to non-numeric [facility] [Enzymatic results) Medical, activity/volume] in PC) Serum, Plasma or Blood Aspartate 14 IU/L Normal (applies [facility] (St aminotransferase to non-numeric [facility] [Enzymatic results) Medical, activity/volume] in PC) Serum or Plasma Alanine 17 IU/L Normal (applies [facility] (St aminotransferase to non-numeric [facility] [Enzymatic results) Medical, activity/volume] in PC) Serum or Plasma ID Date Data Source [id number] 08/09/2019 12:00:00 AM EDT [facility] ([facility], ) Name Value Range Interpretation Description Data Sup porting Code Source(s) Document(s ) Leukocytes 9.5 Normal (applies [facility] (St [#/volume] in x10E3/uL to non-numeric [facility] Blood by results) Medical, ) Automated count Erythrocytes 4.84 Normal (applies [facility] (St [#/volume] in x10E6/uL to non-numeric [facility] Blood by results) Medical, ) Automated count Hematocrit 41.3 % Normal (applies [facility] (St [Volume to non-numeric [facility] Fraction] of results) Medical, ) Blood by Automated count Hemoglobin 13.5 Normal (applies [facility] (St [Mass/volume] in g/dL to non-numeric [facility] Blood results) Medical, ) MCV 85 fL Normal (applies [facility] (St to non-numeric [facility] results) Medical, ) MCHC 32.7 Normal (applies [facility] (St g/dL to non-numeric [facility] results) Medical, ) MCH 27.9 pg Normal (applies [facility] (St to non-numeric [facility] results) Medical, ) RDW 14.0 % Normal (applies [facility] (St to non-numeric [facility] results) Medical, ) Platelets 229 Normal (applies [facility] (St [#/area] in x10E3/uL to non-numeric [facility] Blood by results) Medical, ) Microscopy high power field Neutrophils [#] 62 % Normal (applies [facility] ( St in Body fluid by to non-numeric [facility] Manual count results) Medical, ) Lymphs 28 % Normal (applies [facility] (St to non-numeric [facility] results) Medical, ) Monocytes 8 % Normal (applies [facility] (St [#/volume] in to non-numeric [facility] Cord blood results) Medical, ) Basos 1 % Normal (applies [facility] (St to non-numeric [facility] results) Medical, ) Eos 1 % Normal (applies [facility] (St to non-numeric [facility] results) Medical, ) Neutrophils 5.9 Normal (applies MEDGEN (St (Absolute) x10E3/uL to non-numeric [facility] results) Medical, ) Lymphs 2.7 Normal (applies [facility] (St (Absolute) x10E3/uL to non-numeric [facility] results) Medical, ) Monocytes(Absolu 0.7 Normal (applies MEDGEN (St te) x10E3/uL to non-numeric [facility] results) Medical, ) Baso (Absolute) 0.1 Normal (applies [facility] ( St x10E3/uL to non-numeric [facility] results) Medical, ) Eos (Absolute) 0.1 Normal (applies [facility] (S t x10E3/uL to non-numeric [facility] results) Medical, ) Immature 0 % Normal (applies [facility] (St Granulocytes to non-numeric [facility] results) [facility], ) Immature Grans 0.0 Normal (applies [facility] (S t (Abs) x10E3/uL to non-numeric [facility] results) [facility], ) ID Date Data Source [id number] 08/09/2019 12:00:00 AM EDT [facility] ([facility], ) Name Value Range Interpretation Code Description Data Margarita rce(s) Supporting Document(s ) ID Date Data Source [id number] 08/09/2019 12:00:00 AM EDT [facility] ([facility], ) Name Value Range Interpretation Code Description Data Margarita rce(s) Supporting Document(s ) PDF . Normal (applies to [facility] (St non-numeric results) [facility], ) ID Date Data Source [id number] 08/09/2019 12:00:00 AM EDT [facility] ([facility], ) Name Value Range Interpretation Code Description Data Margarita rce(s) Supporting Document(s ) Ferritin, 23 ng/mL Normal (applies to [facility] (St Serum non-numeric [facility] results) [facility], ) ID Date Data Source [id number] 08/09/2019 12:00:00 AM EDT [facility] ([facility], ) Name Value Range Interpretation Code Description Data Margarita rce(s) Supporting Document(s ) SARS-CoV- Negative Normal (applies to [facility] (St 2 non-numeric [facility] Antibody, results) [facility], ) IgG ID Date Data Source [id number] 08/09/2019 12:00:00 AM EDT [facility] ([facility], ) Name Value Range Interpretation Code Description Data Margarita rce(s) Supporting Document(s ) SARS-CoV- Negative Normal (applies to [facility] (St 2 non-numeric [facility] Antibody, results) [facility], ) IgM ID Date Data Source [id number] 08/09/2019 12:00:00 AM EDT [facility] ([facility], ) Name Value Range Interpretation Code Description Data Margarita rce(s) Supporting Document(s ) TSH 1.020 Normal (applies to [facility] (St uIU/mL non-numeric results) [facility]) ID Date Data Source [id number] 08/09/2019 12:00:00 AM EDT MEDGEN ([facility], ) Name Value Range Interpretation Description Data Sup porting Code Source(s) Document(s ) Hemoglobin A1c 7.6 % Above high normal MEDGEN (St in Blood [facility], ) ID Date Data Source [id number] 08/09/2019 12:00:00 AM EDT [facility] ([facility], ) Name Value Range Interpretation Description Data Sup porting Code Source(s) Document(s ) UIBC 362 ug/dL Normal (applies to [facility] (St non-numeric [facility] results) [facility], ) Iron 393 ug/dL Normal (applies to MEDGEN (St Bind.Cap.(TIBC non-numeric [facility] ) results) [facility], ) Iron 31 ug/dL Normal (applies to [facility] (St [Mass/volume] non-numeric [facility] in Serum or results) [facility], ) Plasma Iron 8 % Below lower panic MEDGEN (St saturation limits [facility] [Mass [facility], ) Fraction] in Serum or Plasma ID Date Data Source [id number] 08/09/2019 12:00:00 AM EDT [facility] ([facility], ) Name Value Range Interpretation Description Data Sup porting Code Source(s) Document(s ) Cholesterol 207 Above high normal [facility] (St [Mass/volume] in mg/dL [facility] Serum or Plasma [facility], ) Triglyceride 360 Above high normal MEDGEN (S t [Mass/volume] in mg/dL [facility] Serum or Plasma Medical, ) HDL Cholesterol 28 mg/dL Below low normal [facility] LDL Cholesterol 107 Above high normal MEDGEN (St Calc mg/dL [facility]) VLDL Cholesterol 72 mg/dL Above high normal MEDGE N ([facility]) ID Date Data Source [id number] 08/09/2019 12:00:00 AM EDT MEDGEN ([facility], ) Name Value Range Interpretation Description Data Sup porting Code Source(s) Document(s ) Glucose 119 Above high MEDGEN (St [Mass/volume] in mg/dL normal [facility]'s Urine collected for Medical, unspecified PC) duration Urea nitrogen 17 mg/dL Normal (applies [facility] (St [Mass/volume] in to non-numeric [facility] Serum or Plasma results) Medical, ) Creatinine 0.71 Normal (applies [facility] (St [Interpretation] in mg/dL to non-numeric [facility] s Urine results) Medical, ) eGFR If NonAfricn 98 Normal (applies MEDGEN (St Am mL/min/1 to non-numeric [facility] .73 results) Medical, ) eGFR If Africn Am 113 Normal (applies [facility] (St mL/min/1 to non-numeric [facility] .73 results) Medical, ) BUN/Creatinine 24 Above high MEDGEN (St Ratio normal [facility], ) Sodium 140 Normal (applies MEDGEN (St [Moles/volume] in mmol/L to non-numeric [facility] Serum or Plasma results) Medical, ) Chloride 100 Normal (applies MEDGEN (St [Moles/volume] in mmol/L to non-numeric [facility] Serum or Plasma results) Medical, ) Potassium 4.7 Normal (applies [facility] (St [Mass/volume] in mmol/L to non-numeric [facility] Blood results) Medical, ) Carbon dioxide, 26 Normal (applies [facility]GEN ( St total mmol/L to non-numeric [facility] [Moles/volume] in results) Medical, Serum or Plasma PC) Protein 7.7 g/dL Normal (applies [facility] (St [Mass/volume] in to non-numeric [facility] Serum or Plasma results) Medical, ) Calcium 9.8 Normal (applies [facility] (St [Moles/volume] in mg/dL to non-numeric [facility] Urine collected for results) Medical, unspecified ) duration Globulin, Total 3.4 g/dL Normal (applies [facility] ( St to non-numeric [facility] results) Medical, ) Microalbumin 4.3 g/dL Normal (applies [facility] (St [Mass/time] in to non-numeric [facility] Urine collected for results) Medical, unspecified ) duration A/G Ratio 1.3 Normal (applies [facility] (St to non-numeric [facility] results) Medical, ) Bilirubin.total 0.2 Normal (applies [facility] ( St [Mass/volume] in mg/dL to non-numeric [facility] Serum or Plasma results) Medical, ) Aspartate 14 IU/L Normal (applies MEDGEN (St aminotransferase to non-numeric [facility] [Enzymatic results) Medical, activity/volume] in PC) Serum or Plasma Alkaline 100 IU/L Normal (applies [facility]GEN (St phosphatase to non-numeric [facility] [Enzymatic results) Medical, activity/volume] in PC) Serum, Plasma or Blood Alanine 17 IU/L Normal (applies MEDGEN (St aminotransferase to non-numeric [facility] [Enzymatic results) Medical, activity/volume] in PC) Serum or Plasma ID Date Data Source [id number] 08/09/2019 12:00:00 AM EDT [facility] ([facility] ) Name Value Range Interpretation Description Data Sup porting Code Source(s) Document(s ) Leukocytes 9.5 Normal (applies MEDGEN (St [#/volume] in x10E3/uL to non-numeric [facility] Blood by results) Medical, ) Automated count Erythrocytes 4.84 Normal (applies MEDGEN (St [#/volume] in x10E6/uL to non-numeric [facility] Blood by results) Medical, ) Automated count Hematocrit 41.3 % Normal (applies [facility]GEN (St [Volume to non-numeric [facility] Fraction] of results) Medical, ) Blood by Automated count Hemoglobin 13.5 Normal (applies [facility] (St [Mass/volume] in g/dL to non-numeric [facility] Blood results) Medical, ) MCV 85 fL Normal (applies [facility] (St to non-numeric [facility] results) Medical, ) MCH 27.9 pg Normal (applies [facility] (St to non-numeric [facility] results) Medical, ) RDW 14.0 % Normal (applies [facility]GEN (St to non-numeric [facility] results) Medical, ) MCHC 32.7 Normal (applies [facility] (St g/dL to non-numeric [facility] results) [facility], ) Neutrophils [#] 62 % Normal (applies MEDGEN ( St in Body fluid by to non-numeric [facility] Manual count results) Medical, ) Platelets 229 Normal (applies MEDGEN (St [#/area] in x10E3/uL to non-numeric [facility] Blood by results) Medical, ) Microscopy high power field Monocytes 8 % Normal (applies MEDGEN (St [#/volume] in to non-numeric [facility] Cord blood results) [facility], ) Lymphs 28 % Normal (applies MED[facility] (St to non-numeric [facility] results) Medical, ) Basos 1 % Normal (applies [facility] (St to non-numeric [facility] results) Medical, ) Eos 1 % Normal (applies [facility] (St to non-numeric [facility] results) [facility], ) Lymphs 2.7 Normal (applies MEDGEN (St (Absolute) x10E3/uL to non-numeric [facility] results) Medical, ) Neutrophils 5.9 Normal (applies MED[facility] (St (Absolute) x10E3/uL to non-numeric [facility] results) [facility], ) Monocytes(Absolu 0.7 Normal (applies MEDGEN (St te) x10E3/uL to non-numeric [facility] results) Medical, ) Eos (Absolute) 0.1 Normal (applies MEDGEN (S t x10E3/uL to non-numeric [facility] results) Medical, ) Immature 0 % Normal (applies [facility] (St Granulocytes to non-numeric [facility] results) Medical, ) Baso (Absolute) 0.1 Normal (applies MEDGEN ( St x10E3/uL to non-numeric [facility] results) Medical, ) Immature Grans 0.0 Normal (applies [facility] (S t (Abs) x10E3/uL to non-numeric [facility] results) [facility], ) ID Date Data Source [id number] 08/09/2019 12:00:00 AM EDT [facility] ([facility] Name Value Range Interpretation Code Description Data Margarita rce(s) Supporting Document(s ) ID Date Data Source [id number] 08/09/2019 12:00:00 AM EDT [facility] ([facility]) Name Value Range Interpretation Code Description Data Margarita rce(s) Supporting Document(s ) PDF . Normal (applies to [facility] (St non-numeric results) [facility]) ID Date Data Source [id number] 08/09/2019 12:00:00 AM EDT [facility] ([facility]) Name Value Range Interpretation Code Description Data Margarita rce(s) Supporting Document(s ) Ferritin, 23 ng/mL Normal (applies to MEDGEN (St Serum non-numeric [facility] results) Medical, ) ID Date Data Source [id number] 08/09/2019 12:00:00 AM EDT [facility] ([facility]) Name Value Range Interpretation Code Description Data Margarita rce(s) Supporting Document(s ) SARS-CoV- Negative Normal (applies to MEDGEN (St 2 non-numeric [facility] Antibody, results) Medical, ) IgG ID Date Data Source [id number] 08/09/2019 12:00:00 AM EDT [facility] ([facility]) Name Value Range Interpretation Code Description Data Margarita rce(s) Supporting Document(s ) SARS-CoV- Negative Normal (applies to MED[facility] (St 2 non-numeric [facility] Antibody, results) Medical, ) IgM ID Date Data Source [id number] 08/09/2019 12:00:00 AM EDT [facility] ([facility]) Name Value Range Interpretation Code Description Data Margarita rce(s) Supporting Document(s ) TSH 1.020 Normal (applies to MEDGEN (St uIU/mL non-numeric results) [facility]) ID Date Data Source [id number] 08/09/2019 12:00:00 AM EDT [facility] ([facility]) Name Value Range Interpretation Description Data Sup porting Code Source(s) Document(s ) Hemoglobin A1c 7.6 % Above high normal MEDGEN (St in Blood [facility], ) ID Date Data Source [id number] 08/09/2019 12:00:00 AM EDT [facility] ([facility], ) Name Value Range Interpretation Description Data Sup porting Code Source(s) Document(s ) Iron 393 ug/dL Normal (applies to MEDGEN (St Bind.Cap.(TIBC non-numeric [facility] ) results) [facility], ) UIBC 362 ug/dL Normal (applies to [facility] (St non-numeric [facility] results) [facility], ) Iron 31 ug/dL Normal (applies to MEDGEN (St [Mass/volume] non-numeric [facility] in Serum or results) Medical, ) Plasma Iron 8 % Below lower panic MEDGEN (St saturation limits [facility] [Mass [facility], ) Fraction] in Serum or Plasma ID Date Data Source [id number] 08/09/2019 12:00:00 AM EDT [facility] ([facility], ) Name Value Range Interpretation Description Data Sup porting Code Source(s) Document(s ) Cholesterol 207 Above high normal MED[facility] (St [Mass/volume] in mg/dL [facility] Serum or Plasma [facility], ) Triglyceride 360 Above high normal MEDGEN (S t [Mass/volume] in mg/dL [facility] Serum or Plasma [facility], ) HDL Cholesterol 28 mg/dL Below low normal MED[facility] ([facility], ) VLDL Cholesterol 72 mg/dL Above high normal MEDGE N ([facility]) LDL Cholesterol 107 Above high normal MEDGEN (St Calc mg/dL [facility]) ID Date Data Source [id number] 08/09/2019 12:00:00 AM EDT [facility] ([facility], ) Name Value Range Interpretation Description Data Sup porting Code Source(s) Document(s ) Glucose 119 Above high MEDGEN (St [Mass/volume] in mg/dL normal [facility] Urine collected for Medical, unspecified PC) duration Urea nitrogen 17 mg/dL Normal (applies MEDGEN (St [Mass/volume] in to non-numeric [facility] Serum or Plasma results) [facility], ) Creatinine 0.71 Normal (applies MEDGEN (St [Interpretation] in mg/dL to non-numeric [facility] Urine results) [facility], ) eGFR If NonAfricn 98 Normal (applies MEDGEN (St Am mL/min/1 to non-numeric [facility] .73 results) Medical, PC) eGFR If Africn Am 113 Normal (applies MEDGEN (St mL/min/1 to non-numeric [facility] .73 results) Medical, PC) BUN/Creatinine 24 Above high [facility] (St Ratio normal [facility], [facility]) Sodium 140 Normal (applies MEDGEN (St [Moles/volume] in mmol/L to non-numeric [facility] Serum or Plasma results) Medical, PC) Potassium 4.7 Normal (applies MEDGEN (St [Mass/volume] in mmol/L to non-numeric [facility] Blood results) Medical, PC) Chloride 100 Normal (applies MEDGEN (St [Moles/volume] in mmol/L to non-numeric [facility] Serum or Plasma results) Medical, PC) Carbon dioxide, 26 Normal (applies MEDGEN ( St total mmol/L to non-numeric [facility] [Moles/volume] in results) Medical, Serum or Plasma PC) Calcium 9.8 Normal (applies MEDGEN (St [Moles/volume] in mg/dL to non-numeric [facility] Urine collected for results) Medical, unspecified PC) duration Protein 7.7 g/dL Normal (applies [facility] (St [Mass/volume] in to non-numeric [facility] Serum or Plasma results) Medical, PC) Globulin, Total 3.4 g/dL Normal (applies [facility]GEN ( St to non-numeric [facility] results) Medical, PC) Microalbumin 4.3 g/dL Normal (applies [facility] (St [Mass/time] in to non-numeric [facility] Urine collected for results) Medical, unspecified PC) duration A/G Ratio 1.3 Normal (applies [facility] (St to non-numeric [facility] results) Medical, PC) Bilirubin.total 0.2 Normal (applies [facility]GEN ( St [Mass/volume] in mg/dL to non-numeric [facility] Serum or Plasma results) Medical, PC) Alkaline 100 IU/L Normal (applies [facility] (St phosphatase to non-numeric [facility] [Enzymatic results) Medical, activity/volume] in PC) Serum, Plasma or Blood Aspartate 14 IU/L Normal (applies [facility]GEN (St aminotransferase to non-numeric [facility] [Enzymatic results) Medical, activity/volume] in PC) Serum or Plasma Alanine 17 IU/L Normal (applies [facility]GEN (St aminotransferase to non-numeric [facility] [Enzymatic results) Medical, activity/volume] in ) Serum or Plasma ID Date Data Source [id number] 08/09/2019 12:00:00 AM EDT [facility] ([facility], ) Name Value Range Interpretation Description Data Sup porting Code Source(s) Document(s ) Leukocytes 9.5 Normal (applies [facility]GEN (St [#/volume] in x10E3/uL to non-numeric [facility] Blood by results) Medical, ) Automated count Erythrocytes 4.84 Normal (applies [facility] (St [#/volume] in x10E6/uL to non-numeric [facility] Blood by results) Medical, ) Automated count Hemoglobin 13.5 Normal (applies [facility] (St [Mass/volume] in g/dL to non-numeric [facility] Blood results) Medical, ) Hematocrit 41.3 % Normal (applies [facility] (St [Volume to non-numeric [facility] Fraction] of results) Medical, ) Blood by Automated count MCV 85 fL Normal (applies [facility] (St to non-numeric [facility] results) Medical, ) MCH 27.9 pg Normal (applies [facility] (St to non-numeric [facility] results) Medical, ) MCHC 32.7 Normal (applies [facility] (St g/dL to non-numeric [facility] results) Medical, ) RDW 14.0 % Normal (applies [facility] (St to non-numeric [facility] results) Medical, ) Platelets 229 Normal (applies [facility] (St [#/area] in x10E3/uL to non-numeric [facility] Blood by results) Medical, ) Microscopy high power field Neutrophils [#] 62 % Normal (applies [facility]GEN ( St in Body fluid by to non-numeric [facility] Manual count results) Medical, ) Lymphs 28 % Normal (applies [facility] (St to non-numeric [facility] results) Medical, ) Eos 1 % Normal (applies [facility] (St to non-numeric [facility] results) Medical, ) Monocytes 8 % Normal (applies [facility] (St [#/volume] in to non-numeric [facility] Cord blood results) Medical, ) Basos 1 % Normal (applies [facility] (St to non-numeric [facility] results) Medical, ) Neutrophils 5.9 Normal (applies [facility] (St (Absolute) x10E3/uL to non-numeric [facility] results) Medical, ) Lymphs 2.7 Normal (applies [facility] (St (Absolute) x10E3/uL to non-numeric [facility] results) Medical, ) Monocytes(Absolu 0.7 Normal (applies [facility] (St te) x10E3/uL to non-numeric [facility] results) Medical, ) Baso (Absolute) 0.1 Normal (applies [facility]GEN ( St x10E3/uL to non-numeric [facility] results) Medical, ) Eos (Absolute) 0.1 Normal (applies [facility] (S t x10E3/uL to non-numeric [facility] results) Medical, ) Immature 0 % Normal (applies [facility] (St Granulocytes to non-numeric [facility] results) Medical, ) Immature Grans 0.0 Normal (applies [facility]GEN (S t (Abs) x10E3/uL to non-numeric [facility] results) Medical, ) ID Date Data Source [id number] 03/03/2019 12:00:00 AM EST [facility] ([facility], ) Name Value Range Interpretation Code Description Data Margarita rce(s) Supporting Document(s ) ID Date Data Source [id number] 03/03/2019 12:00:00 AM EST [facility] ([facility], ) Name Value Range Interpretation Code Description Data Margarita rce(s) Supporting Document(s ) PDF Image . Normal (applies to [facility]GEN (St non-numeric results) [facility], ) ID Date Data Source [id number] 03/03/2019 12:00:00 AM EST [facility] ([facility], ) Name Value Range Interpretation Description Data Sup porting Code Source(s) Document(s ) Vitamin B12 381 pg/mL Normal (applies to [facility]GEN (S t non-numeric [facility] results) [facility], ) ID Date Data Source [id number] 03/03/2019 12:00:00 AM EST [facility] ([facility], ) Name Value Range Interpretation Description Data Sup porting Code Source(s) Document(s ) Vitamin D, 22.1 Below low normal MEDGEN (St 25-Hydroxy ng/mL [facility], ) ID Date Data Source [id number] 03/03/2019 12:00:00 AM EST [facility] ([facility], ) Name Value Range Interpretation Code Description Data Margarita rce(s) Supporting Document(s ) TSH 0.960 Normal (applies to [facility] (St uIU/mL non-numeric results) [facility], ) ID Date Data Source [id number] 03/03/2019 12:00:00 AM EST [facility] ([facility], ) Name Value Range Interpretation Description Data Sup porting Code Source(s) Document(s ) Hemoglobin 7.6 % Above high normal [facility] (St A1c/Hemoglobin. [facility] total in Blood [facility], ) ID Date Data Source [id number] 03/03/2019 12:00:00 AM EST [facility] ([facility], ) Name Value Range Interpretation Description Data Sup porting Code Source(s) Document(s ) Triglyceride 378 Above high normal MEDGEN (S t [Mass/volume] in mg/dL [facility] Serum or Plasma [facility], ) Cholesterol 221 Above high normal [facility] (St [Mass/volume] in mg/dL [facility] Serum or Plasma [facility], ) VLDL Cholesterol 76 mg/dL Above high normal MEDGE N ([facility], ) HDL Cholesterol 26 mg/dL Below low normal [facility] ([facility], ) LDL Cholesterol 119 Above high normal [facility] (St Calc mg/dL [facility], ) ID Date Data Source [id number] 03/03/2019 12:00:00 AM EST [facility] ([facility], ) Name Value Range Interpretation Description Data Sup porting Code Source(s) Document(s ) WBC 0-5 Normal (applies to [facility] (St non-numeric [facility] results) Medical, ) RBC 0-2 Normal (applies to [facility] (St non-numeric [facility] results) Medical, ) Mucus Threads Present Normal (applies to [facility] (St non-numeric [facility] results) Medical, ) Epithelial 0-10 Normal (applies to [facility] (St Cells (non non-numeric [facility] renal) results) Medical, ) Bacteria Few Normal (applies to [facility] (St [Presence] in non-numeric [facility] Prostatic results) [facility], ) fluid by Light microscopy ID Date Data Source [id number] 03/03/2019 12:00:00 AM EST [facility] ([facility]) Name Value Range Interpretation Description Data Sup porting Code Source(s) Document(s ) Glucose 155 Above high [facility] (St [Mass/volume] in mg/dL normal [facility] Urine collected for Medical, unspecified PC) duration Urea nitrogen 17 mg/dL Normal (applies [facility] (St [Mass/volume] in to non-numeric [facility] Serum or Plasma results) Medical, PC) Creatinine 0.77 Normal (applies [facility] (St [Interpretation] in mg/dL to non-numeric [facility] Urine results) Medical, PC) eGFR If NonAfricn 90 Normal (applies [facility] (St Am mL/min/1 to non-numeric [facility] .73 results) Medical, PC) eGFR If Africn Am 103 Normal (applies [facility] (St mL/min/1 to non-numeric [facility] .73 results) Medical, PC) BUN/Creatinine 22 Normal (applies [facility] (S t Ratio to non-numeric [facility] results) Medical, PC) Sodium 140 Normal (applies [facility] (St [Moles/volume] in mmol/L to non-numeric [facility] Serum or Plasma results) Medical, PC) Potassium 4.5 Normal (applies [facility] (St [Mass/volume] in mmol/L to non-numeric [facility] Blood results) Medical, PC) Carbon dioxide, 24 Normal (applies [facility] ( St total mmol/L to non-numeric [facility] [Moles/volume] in results) Medical, Serum or Plasma PC) Chloride 99 Normal (applies [facility] (St [Moles/volume] in mmol/L to non-numeric [facility] Serum or Plasma results) Medical, PC) Calcium 9.6 Normal (applies [facility] (St [Moles/volume] in mg/dL to non-numeric [facility] Urine collected for results) Medical, unspecified PC) duration Microalbumin 4.1 g/dL Normal (applies [facility] (St [Mass/time] in to non-numeric [facility] Urine collected for results) Medical, unspecified PC) duration Protein 7.6 g/dL Normal (applies [facility] (St [Mass/volume] in to non-numeric [facility] Serum or Plasma results) Medical, PC) A/G Ratio 1.2 Normal (applies [facility] (St to non-numeric [facility] results) Medical, ) Globulin, Total 3.5 g/dL Normal (applies [facility] ( St to non-numeric [facility] results) [facility], ) Bilirubin.total 0.4 Normal (applies [facility] ( St [Mass/volume] in mg/dL to non-numeric [facility] Serum or Plasma results) [facility], ) Alkaline 99 IU/L Normal (applies [facility] (St phosphatase to non-numeric [facility] [Enzymatic results) Medical, activity/volume] in ) Serum, Plasma or Blood Alanine 20 IU/L Normal (applies [facility] (St aminotransferase to non-numeric [facility] [Enzymatic results) Medical, activity/volume] in ) Serum or Plasma Aspartate 17 IU/L Normal (applies [facility] (St aminotransferase to non-numeric [facility] [Enzymatic results) Medical, activity/volume] in ) Serum or Plasma Leukocytes 7.6 Normal (applies [facility] (St [#/volume] in Blood x10E3/uL to non-numeric [facility] by Automated count results) [facility], ) Erythrocytes 4.60 Normal (applies [facility] (St [#/volume] in Blood x10E6/uL to non-numeric [facility] by Automated count results) [facility], ) Hemoglobin 13.2 Normal (applies [facility] (St [Mass/volume] in g/dL to non-numeric [facility] Blood results) [facility], ) MCV 85 fL Normal (applies [facility] (St to non-numeric [facility] results) [facility], ) Hematocrit [Volume 39.2 % Normal (applies MEDGE N (St Fraction] of Blood to non-numeric [facility] by Automated count results) [facility], ) MCH 28.7 pg Normal (applies [facility] (St to non-numeric [facility] results) [facility], ) MCHC 33.7 Normal (applies [facility] (St g/dL to non-numeric [facility] results) [facility], ) RDW 14.6 % Normal (applies [facility] (St to non-numeric [facility] results) [facility], ) Neutrophils [#] in 62 % Normal (applies MEDGE N (St Body fluid by to non-numeric [facility] Manual count results) [facility], ) Platelets [#/area] 214 Normal (applies MEDGE N (St in Blood by x10E3/uL to non-numeric [facility] Microscopy high results) Medical, power field PC) Lymphs 31 % Normal (applies [facility] (St to non-numeric [facility] results) Medical, PC) Eos 1 % Normal (applies [facility] (St to non-numeric [facility] results) Medical, PC) Monocytes 6 % Normal (applies [facility] (St [#/volume] in Cord to non-numeric [facility] blood results) Medical, PC) Neutrophils 4.7 Normal (applies [facility] (St (Absolute) x10E3/uL to non-numeric [facility] results) Medical, PC) Basos 0 % Normal (applies [facility] (St to non-numeric [facility] results) Medical, PC) Monocytes(Absolute) 0.5 Normal (applies MEDG EN (St x10E3/uL to non-numeric [facility] results) Medical, PC) Lymphs (Absolute) 2.3 Normal (applies [facility] (St x10E3/uL to non-numeric [facility] results) Medical, PC) Eos (Absolute) 0.1 Normal (applies [facility]GEN (S t x10E3/uL to non-numeric [facility] results) Medical, PC) Immature 0 % Normal (applies [facility] (St Granulocytes to non-numeric [facility] results) Medical, PC) Baso (Absolute) 0.0 Normal (applies [facility] ( St x10E3/uL to non-numeric [facility] results) Medical, PC) Immature Grans 0.0 Normal (applies [facility]GEN (S t (Abs) x10E3/uL to non-numeric [facility] results) Medical, ) ID Date Data Source [id number] 03/03/2019 12:00:00 AM EST [facility] ([facility], ) Name Value Range Interpretation Description Data Sup porting Code Source(s) Document(s ) Specific gravity 1.029 Normal (applies [facility] (St of Pericardial to non-numeric [facility] fluid by results) Medical, Refractometry PC) pH of Lower 5.5 Normal (applies [facility] (St respiratory to non-numeric [facility] specimen results) Medical, ) Urine-Color Yellow Normal (applies [facility] (St to non-numeric [facility] results) Medical, PC) Appearance of Turbid Abnormal MEDGEN (St Abdomen (applies to [facility] non-numeric Medical, results) PC) WBC Esterase Negative Normal (applies [facility] (St to non-numeric [facility] results) Medical, PC) Protein Abnormal MEDGEN (St [Mass/volume] in (applies to [facility] Lower non-numeric Medical, respiratory results) PC) specimen Glucose Negative Normal (applies [facility] (St [Mass/volume] in to non-numeric [facility] Urine collected results) Medical, for unspecified PC) duration Ketones Trace Abnormal [facility] (St [Presence] in (applies to [facility] Blood by Tablet non-numeric Medical, results) PC) Bilirubin Negative Normal (applies [facility] (St [Presence] in to non-numeric [facility] Peritoneal fluid results) Medical, PC) Occult Blood Negative Normal (applies [facility] (St to non-numeric [facility] results) Medical, PC) Nitrite, Urine Negative Normal (applies [facility] (S t to non-numeric [facility] results) Medical, PC) Urobilinogen,Smita 1.0 mg/dL Normal (applies [facility] (St i-Qn to non-numeric [facility] results) Medical, ) Microscopic See below: Normal (applies [facility] (St Examination to non-numeric [facility] results) Medical, ) ID Date Data Source [id number] 03/03/2019 12:00:00 AM EST [facility] ([facility]) Name Value Range Interpretation Code Description Data Margarita rce(s) Supporting Document(s ) ID Date Data Source [id number] 03/03/2019 12:00:00 AM EST [facility] ([facility]) Name Value Range Interpretation Code Description Data Margarita rce(s) Supporting Document(s ) PDF Image . Normal (applies to [facility]GEN (St non-numeric results) [facility], PC) ID Date Data Source [id number] 03/03/2019 12:00:00 AM EST [facility] ([facility]) Name Value Range Interpretation Description Data Sup porting Code Source(s) Document(s ) Vitamin B12 381 pg/mL Normal (applies to [facility]GEN (S t non-numeric [facility] results) Medical, ) ID Date Data Source [id number] 03/03/2019 12:00:00 AM EST [facility] ([facility]) Name Value Range Interpretation Description Data Sup porting Code Source(s) Document(s ) Vitamin D, 22.1 Below low normal [facility] (St 25-Hydroxy ng/mL [facility], ) ID Date Data Source [id number] 03/03/2019 12:00:00 AM EST [facility] ([facility], ) Name Value Range Interpretation Code Description Data Margarita rce(s) Supporting Document(s ) TSH 0.960 Normal (applies to [facility] (St uIU/mL non-numeric results) [facility]) ID Date Data Source [id number] 03/03/2019 12:00:00 AM EST MED[facility] ([facility], ) Name Value Range Interpretation Description Data Sup porting Code Source(s) Document(s ) Hemoglobin 7.6 % Above high normal [facility] (St A1c/Hemoglobin. [facility] total in Blood [facility], ) ID Date Data Source [id number] 03/03/2019 12:00:00 AM EST [facility] ([facility], ) Name Value Range Interpretation Description Data Sup porting Code Source(s) Document(s ) Cholesterol 221 Above high normal MEDGEN (St [Mass/volume] in mg/dL [facility] Serum or Plasma [facility], ) Triglyceride 378 Above high normal MEDGEN (S t [Mass/volume] in mg/dL [facility] Serum or Plasma [facility], ) VLDL Cholesterol 76 mg/dL Above high normal MEDGE N ([facility]) HDL Cholesterol 26 mg/dL Below low normal [facility] ([facility], ) LDL Cholesterol 119 Above high normal MEDGEN (St Calc mg/dL [facility]) ID Date Data Source [id number] 03/03/2019 12:00:00 AM EST MED[facility] ([facility], ) Name Value Range Interpretation Description Data Sup porting Code Source(s) Document(s ) WBC 0-5 Normal (applies to [facility] (St non-numeric [facility] results) [facility], ) RBC 0-2 Normal (applies to [facility] (St non-numeric [facility] results) [facility], ) Mucus Threads Present Normal (applies to [facility]GEN (St non-numeric [facility] results) Medical, ) Epithelial 0-10 Normal (applies to [facility]GEN (St Cells (non non-numeric [facility] renal) results) Medical, PC) Bacteria Few Normal (applies to [facility]GEN (St [Presence] in non-numeric [facility] Prostatic results) Medical, PC) fluid by Light microscopy ID Date Data Source [id number] 03/03/2019 12:00:00 AM EST [facility] ([facility]) Name Value Range Interpretation Description Data Sup porting Code Source(s) Document(s ) Glucose 155 Above high [facility] (St [Mass/volume] in mg/dL normal [facility] Urine collected for Medical, unspecified PC) duration Urea nitrogen 17 mg/dL Normal (applies [facility] (St [Mass/volume] in to non-numeric [facility] Serum or Plasma results) Medical, PC) Creatinine 0.77 Normal (applies [facility] (St [Interpretation] in mg/dL to non-numeric [facility] Urine results) Medical, PC) eGFR If NonAfricn 90 Normal (applies [facility] (St Am mL/min/1 to non-numeric [facility] .73 results) Medical, PC) eGFR If Africn Am 103 Normal (applies [facility] (St mL/min/1 to non-numeric [facility] .73 results) Medical, PC) BUN/Creatinine 22 Normal (applies [facility]GEN (S t Ratio to non-numeric [facility] results) Medical, PC) Sodium 140 Normal (applies [facility] (St [Moles/volume] in mmol/L to non-numeric [facility] Serum or Plasma results) Medical, PC) Chloride 99 Normal (applies [facility] (St [Moles/volume] in mmol/L to non-numeric [facility] Serum or Plasma results) Medical, PC) Potassium 4.5 Normal (applies [facility] (St [Mass/volume] in mmol/L to non-numeric [facility] Blood results) Medical, PC) Calcium 9.6 Normal (applies [facility] (St [Moles/volume] in mg/dL to non-numeric [facility] Urine collected for results) Medical, unspecified PC) duration Carbon dioxide, 24 Normal (applies [facility]GEN ( St total mmol/L to non-numeric [facility] [Moles/volume] in results) Medical, Serum or Plasma PC) Protein 7.6 g/dL Normal (applies [facility] (St [Mass/volume] in to non-numeric [facility] Serum or Plasma results) Medical, PC) Microalbumin 4.1 g/dL Normal (applies [facility] (St [Mass/time] in to non-numeric [facility] Urine collected for results) [facility], unspecified PC) duration A/G Ratio 1.2 Normal (applies [facility]GEN (St to non-numeric [facility] results) [facility], ) Globulin, Total 3.5 g/dL Normal (applies [facility]GEN ( St to non-numeric [facility] results) Medical, ) Bilirubin.total 0.4 Normal (applies [facility]GEN ( St [Mass/volume] in mg/dL to non-numeric [facility] Serum or Plasma results) Medical, ) Alkaline 99 IU/L Normal (applies [facility]GEN (St phosphatase to non-numeric [facility] [Enzymatic results) Medical, activity/volume] in PC) Serum, Plasma or Blood Aspartate 17 IU/L Normal (applies [facility]GEN (St aminotransferase to non-numeric [facility] [Enzymatic results) Medical, activity/volume] in PC) Serum or Plasma Alanine 20 IU/L Normal (applies [facility]GEN (St aminotransferase to non-numeric [facility] [Enzymatic results) Medical, activity/volume] in PC) Serum or Plasma Erythrocytes 4.60 Normal (applies [facility]GEN (St [#/volume] in Blood x10E6/uL to non-numeric [facility] by Automated count results) Medical, ) Leukocytes 7.6 Normal (applies [facility]GEN (St [#/volume] in Blood x10E3/uL to non-numeric [facility] by Automated count results) [facility], ) Hemoglobin 13.2 Normal (applies [facility]GEN (St [Mass/volume] in g/dL to non-numeric [facility] Blood results) [facility], ) Hematocrit [Volume 39.2 % Normal (applies MEDGE N (St Fraction] of Blood to non-numeric [facility] by Automated count results) Medical, ) MCH 28.7 pg Normal (applies [facility]GEN (St to non-numeric [facility] results) Medical, ) MCV 85 fL Normal (applies [facility]GEN (St to non-numeric [facility] results) [facility], ) MCHC 33.7 Normal (applies [facility]GEN (St g/dL to non-numeric [facility] results) Medical, ) RDW 14.6 % Normal (applies [facility]GEN (St to non-numeric [facility] results) [facility], ) Platelets [#/area] 214 Normal (applies MEDGE N (St in Blood by x10E3/uL to non-numeric [facility] Microscopy high results) [facility], power field PC) Neutrophils [#] in 62 % Normal (applies MEDGE N (St Body fluid by to non-numeric [facility] Manual count results) Medical, ) Lymphs 31 % Normal (applies [facility] (St to non-numeric [facility] results) Medical, ) Eos 1 % Normal (applies [facility]GEN (St to non-numeric [facility] results) Medical, ) Monocytes 6 % Normal (applies MEDGEN (St [#/volume] in Cord to non-numeric [facility] blood results) Medical, ) Basos 0 % Normal (applies [facility]GEN (St to non-numeric [facility] results) Medical, ) Neutrophils 4.7 Normal (applies MEDGEN (St (Absolute) x10E3/uL to non-numeric [facility] results) Medical, ) Lymphs (Absolute) 2.3 Normal (applies [facility]GEN (St x10E3/uL to non-numeric [facility] results) Medical, ) Monocytes(Absolute) 0.5 Normal (applies MEDG EN (St x10E3/uL to non-numeric [facility] results) Medical, ) Baso (Absolute) 0.0 Normal (applies MEDGEN ( St x10E3/uL to non-numeric [facility] results) Medical, ) Eos (Absolute) 0.1 Normal (applies MEDGEN (S t x10E3/uL to non-numeric [facility] results) Medical, ) Immature Grans 0.0 Normal (applies MEDGEN (S t (Abs) x10E3/uL to non-numeric [facility] results) Medical, ) Immature 0 % Normal (applies [facility]GEN (St Granulocytes to non-numeric [facility] results) Medical, ) ID Date Data Source [id number] 03/03/2019 12:00:00 AM EST [facility] ([facility], ) Name Value Range Interpretation Description Data Sup porting Code Source(s) Document(s ) Specific gravity 1.029 Normal (applies [facility]GEN (St of Pericardial to non-numeric [facility] fluid by results) Medical, Refractometry ) pH of Lower 5.5 Normal (applies [facility]GEN (St respiratory to non-numeric [facility] specimen results) Medical, ) Urine-Color Yellow Normal (applies [facility]GEN (St to non-numeric [facility] results) Medical, ) Appearance of Turbid Abnormal MEDGEN (St Abdomen (applies to [facility] non-numeric Medical, results) PC) Protein Abnormal MEDGEN (St [Mass/volume] in (applies to [facility] Lower non-numeric Medical, respiratory results) PC) specimen WBC Esterase Negative Normal (applies [facility]GEN (St to non-numeric [facility] results) Medical, ) Glucose Negative Normal (applies [facility]GEN (St [Mass/volume] in to non-numeric [facility] Urine collected results) [facility], for unspecified PC) duration Ketones Trace Abnormal MEDGEN (St [Presence] in (applies to [facility] Blood by Tablet non-numeric Medical, results) PC) Bilirubin Negative Normal (applies [facility]GEN (St [Presence] in to non-numeric [facility] Peritoneal fluid results) Medical, ) Occult Blood Negative Normal (applies [facility]GEN (St to non-numeric [facility] results) Medical, ) Nitrite, Urine Negative Normal (applies MEDGEN (S t to non-numeric [facility] results) Medical, ) Urobilinogen,Smita 1.0 mg/dL Normal (applies MEDGEN (St i-Qn to non-numeric [facility] results) Medical, ) Microscopic See below: Normal (applies MEDGEN (St Examination to non-numeric [facility] results) Medical, ) ID Date Data Source [id number] 03/03/2019 12:00:00 AM EST [facility] ([facility]) Name Value Range Interpretation Code Description Data Margarita rce(s) Supporting Document(s ) ID Date Data Source [id number] 03/03/2019 12:00:00 AM EST [facility] ([facility] Name Value Range Interpretation Code Description Data Margarita rce(s) Supporting Document(s ) PDF Image . Normal (applies to MEDGEN (St non-numeric results) [facility], ) ID Date Data Source [id number] 03/03/2019 12:00:00 AM EST [facility] ([facility]) Name Value Range Interpretation Description Data Sup porting Code Source(s) Document(s ) Vitamin B12 381 pg/mL Normal (applies to MEDGEN (S t non-numeric [facility] results) Medical, ) ID Date Data Source [id number] 03/03/2019 12:00:00 AM EST MEDGEN ([facility], ) Name Value Range Interpretation Description Data Sup porting Code Source(s) Document(s ) Vitamin D, 22.1 Below low normal MEDGEN (St 25-Hydroxy ng/mL [facility] [place], ) ID Date Data Source [id number] 03/03/2019 12:00:00 AM EST MEDGEN ([facility], ) Name Value Range Interpretation Code Description Data Margarita rce(s) Supporting Document(s ) TSH 0.960 Normal (applies to MEDGEN (St uIU/mL non-numeric results) [facility], ) ID Date Data Source [id number] 03/03/2019 12:00:00 AM EST MEDGEN ([facility], ) Name Value Range Interpretation Description Data Sup porting Code Source(s) Document(s ) Hemoglobin 7.6 % Above high normal MEDGEN (St A1c/Hemoglobin. [facility]'s total in Blood [facility], ) ID Date Data Source [id number] 03/03/2019 12:00:00 AM EST MEDGEN ([facility], ) Name Value Range Interpretation Description Data Sup porting Code Source(s) Document(s ) Cholesterol 221 Above high normal MEDGEN (St [Mass/volume] in mg/dL [facility] Serum or Plasma [facility], ) Triglyceride 378 Above high normal MEDGEN (S t [Mass/volume] in mg/dL [facility] Serum or Plasma [facility], ) HDL Cholesterol 26 mg/dL Below low normal MEDGEN ([facility], ) VLDL Cholesterol 76 mg/dL Above high normal MEDGE N ([facility] [place], ) LDL Cholesterol 119 Above high normal MEDGEN (St Calc mg/dL [facility] [place], ) ID Date Data Source [id number] 03/03/2019 12:00:00 AM EST MEDGEN ([facility], ) Name Value Range Interpretation Description Data Sup porting Code Source(s) Document(s ) WBC 0-5 Normal (applies to MEDGEN (St non-numeric [facility] results) [facility], ) RBC 0-2 Normal (applies to MEDGEN (St non-numeric [facility] results) [facility], ) Epithelial 0-10 Normal (applies to MEDGEN (St Cells (non non-numeric [facility] renal) results) Medical, PC) Mucus Threads Present Normal (applies to MEDGEN (St non-numeric [facility] results) Medical, PC) Bacteria Few Normal (applies to MEDGEN (St [Presence] in non-numeric [facility] Prostatic results) Medical, PC) fluid by Light microscopy ID Date Data Source [id number] 03/03/2019 12:00:00 AM EST [facility] ([facility] Name Value Range Interpretation Description Data Sup porting Code Source(s) Document(s ) Glucose 155 Above high MEDGEN (St [Mass/volume] in mg/dL normal [facility] Urine collected for Medical, unspecified PC) duration Creatinine 0.77 Normal (applies MEDGEN (St [Interpretation] in mg/dL to non-numeric [facility] Urine results) Medical, PC) Urea nitrogen 17 mg/dL Normal (applies MEDGEN (St [Mass/volume] in to non-numeric [facility] Serum or Plasma results) Medical, PC) eGFR If NonAfricn 90 Normal (applies MEDGEN (St Am mL/min/1 to non-numeric [facility] .73 results) Medical, PC) eGFR If Africn Am 103 Normal (applies MEDGEN (St mL/min/1 to non-numeric [facility] .73 results) Medical, PC) BUN/Creatinine 22 Normal (applies MEDGEN (S t Ratio to non-numeric [facility] results) Medical, PC) Sodium 140 Normal (applies MEDGEN (St [Moles/volume] in mmol/L to non-numeric [facility] Serum or Plasma results) Medical, PC) Potassium 4.5 Normal (applies MEDGEN (St [Mass/volume] in mmol/L to non-numeric [facility] Blood results) Medical, PC) Chloride 99 Normal (applies MEDGEN (St [Moles/volume] in mmol/L to non-numeric [facility] Serum or Plasma results) Medical, PC) Carbon dioxide, 24 Normal (applies MEDGEN ( St total mmol/L to non-numeric [facility] [Moles/volume] in results) Medical, Serum or Plasma PC) Calcium 9.6 Normal (applies MEDGEN (St [Moles/volume] in mg/dL to non-numeric [facility] Urine collected for results) Medical, unspecified PC) duration Protein 7.6 g/dL Normal (applies MEDGEN (St [Mass/volume] in to non-numeric [facility] Serum or Plasma results) Medical, ) Microalbumin 4.1 g/dL Normal (applies MEDGEN (St [Mass/time] in to non-numeric [facility] Urine collected for results) [facility], unspecified PC) duration Globulin, Total 3.5 g/dL Normal (applies MEDGEN ( St to non-numeric [facility] results) Medical, PC) A/G Ratio 1.2 Normal (applies MEDGEN (St to non-numeric [facility] results) Medical, PC) Bilirubin.total 0.4 Normal (applies MEDGEN ( St [Mass/volume] in mg/dL to non-numeric [facility] Serum or Plasma results) [facility], ) Alkaline 99 IU/L Normal (applies MEDGEN (St phosphatase to non-numeric [facility] [Enzymatic results) Medical, activity/volume] in PC) Serum, Plasma or Blood Aspartate 17 IU/L Normal (applies MEDGEN (St aminotransferase to non-numeric [facility] [Enzymatic results) Medical, activity/volume] in PC) Serum or Plasma Alanine 20 IU/L Normal (applies MEDGEN (St aminotransferase to non-numeric [facility] [Enzymatic results) Medical, activity/volume] in PC) Serum or Plasma Leukocytes 7.6 Normal (applies MEDGEN (St [#/volume] in Blood x10E3/uL to non-numeric [facility] by Automated count results) Medical, ) Erythrocytes 4.60 Normal (applies MEDGEN (St [#/volume] in Blood x10E6/uL to non-numeric [facility] by Automated count results) Medical, ) Hemoglobin 13.2 Normal (applies MEDGEN (St [Mass/volume] in g/dL to non-numeric [facility] Blood results) [facility], ) Hematocrit [Volume 39.2 % Normal (applies MEDGE N (St Fraction] of Blood to non-numeric [facility] by Automated count results) Medical, ) MCV 85 fL Normal (applies MEDGEN (St to non-numeric [facility] results) Medical, ) MCH 28.7 pg Normal (applies MEDGEN (St to non-numeric [facility] results) Medical, ) MCHC 33.7 Normal (applies MEDGEN (St g/dL to non-numeric [facility] results) [facility], ) RDW 14.6 % Normal (applies MEDGEN (St to non-numeric [facility] results) Medical, ) Platelets [#/area] 214 Normal (applies MEDGE N (St in Blood by x10E3/uL to non-numeric [facility] Microscopy high results) [facility], [facility]) Neutrophils [#] in 62 % Normal (applies MEDGE N (St Body fluid by to non-numeric [facility] Manual count results) Medical, ) Lymphs 31 % Normal (applies MEDGEN (St to non-numeric [facility] results) Medical, ) Monocytes 6 % Normal (applies MEDGEN (St [#/volume] in Cord to non-numeric [facility] blood results) Medical, ) Eos 1 % Normal (applies MEDGEN (St to non-numeric [facility] results) Medical, ) Basos 0 % Normal (applies MEDGEN (St to non-numeric [facility] results) Medical, ) Neutrophils 4.7 Normal (applies MEDGEN (St (Absolute) x10E3/uL to non-numeric [facility] results) Medical, ) Monocytes(Absolute) 0.5 Normal (applies MEDG EN (St x10E3/uL to non-numeric [facility] results) Medical, ) Lymphs (Absolute) 2.3 Normal (applies MEDGEN (St x10E3/uL to non-numeric [facility] results) Medical, ) Eos (Absolute) 0.1 Normal (applies MEDGEN (S t x10E3/uL to non-numeric [facility] results) Medical, ) Baso (Absolute) 0.0 Normal (applies MEDGEN ( St x10E3/uL to non-numeric [facility] results) Medical, ) Immature 0 % Normal (applies MEDGEN (St Granulocytes to non-numeric [facility] results) Medical, ) Immature Grans 0.0 Normal (applies MEDGEN (S t (Abs) x10E3/uL to non-numeric [facility] results) [facility], ) ID Date Data Source [id number] 03/03/2019 12:00:00 AM EST [facility] ([facility], ) Name Value Range Interpretation Description Data Sup porting Code Source(s) Document(s ) Specific gravity 1.029 Normal (applies MEDGEN (St of Pericardial to non-numeric [facility] fluid by results) Medical, Refractometry PC) pH of Lower 5.5 Normal (applies MEDGEN (St respiratory to non-numeric [facility] specimen results) Medical, PC) Urine-Color Yellow Normal (applies MEDGEN (St to non-numeric [facility] results) Medical, PC) Appearance of Turbid Abnormal MEDGEN (St Abdomen (applies to [facility] non-numeric Medical, results) PC) WBC Esterase Negative Normal (applies [facility]GEN (St to non-numeric [facility] results) Medical, PC) Protein Abnormal MEDGEN (St [Mass/volume] in (applies to [facility] Lower non-numeric Medical, respiratory results) PC) specimen Glucose Negative Normal (applies MEDGEN (St [Mass/volume] in to non-numeric [facility] Urine collected results) [facility], for unspecified PC) duration Ketones Trace Abnormal MEDGEN (St [Presence] in (applies to [facility] Blood by Tablet non-numeric Medical, results) PC) Bilirubin Negative Normal (applies MEDGEN (St [Presence] in to non-numeric [facility] Peritoneal fluid results) Medical, ) Occult Blood Negative Normal (applies MEDGEN (St to non-numeric [facility] results) Medical, PC) Urobilinogen,Smita 1.0 mg/dL Normal (applies MEDGEN (St i-Qn to non-numeric [facility] results) Medical, ) Nitrite, Urine Negative Normal (applies MEDGEN (S t to non-numeric [facility] results) Medical, ) Microscopic See below: Normal (applies MEDGEN (St Examination to non-numeric [facility] results) Medical, ) ID Date Data Source [id number] 03/03/2019 12:00:00 AM EST [facility] ([facility]) Name Value Range Interpretation Code Description Data Margarita rce(s) Supporting Document(s ) ID Date Data Source [id number] 03/03/2019 12:00:00 AM EST [facility] ([facility]) Name Value Range Interpretation Code Description Data Margarita rce(s) Supporting Document(s ) PDF Image . Normal (applies to [facility]GEN (St non-numeric results) [facility], [facility]) PDF Image . Normal (applies to [facility]GEN (St non-numeric results) [facility], [facility]) ID Date Data Source [id number] 03/03/2019 12:00:00 AM EST MEDGEN ([facility], ) Name Value Range Interpretation Description Data Sup porting Code Source(s) Document(s ) Vitamin B12 381 pg/mL Normal (applies to MEDGEN (S t non-numeric [facility] results) [facility], ) ID Date Data Source [id number] 03/03/2019 12:00:00 AM EST MEDGEN ([facility], ) Name Value Range Interpretation Description Data Sup porting Code Source(s) Document(s ) Vitamin D, 22.1 Below low normal MEDGEN (St 25-Hydroxy ng/mL [facility]) ID Date Data Source [id number] 03/03/2019 12:00:00 AM EST MEDGEN ([facility], ) Name Value Range Interpretation Code Description Data Margarita rce(s) Supporting Document(s ) TSH 0.960 Normal (applies to MEDGEN (St uIU/mL non-numeric results) [facility]) ID Date Data Source [id number] 03/03/2019 12:00:00 AM EST MEDGEN ([facility], ) Name Value Range Interpretation Description Data Sup porting Code Source(s) Document(s ) Hemoglobin 7.6 % Above high normal MEDGEN (St A1c/Hemoglobin. [facility] total in Blood [facility]) Hemoglobin 8.0 % Above high normal [facility]GEN (St A1c/Hemoglobin. [facility] total in [facility]) ID Date Data Source [id number] 03/03/2019 12:00:00 AM EST MEDGEN ([facility], ) Name Value Range Interpretation Description Data Sup porting Code Source(s) Document(s ) Cholesterol 221 Above high normal MEDGEN (St [Mass/volume] in mg/dL [facility] [place] [facility]) HDL Cholesterol 26 mg/dL Below low normal [facility] ([facility], ) Triglyceride 378 Above high normal MEDGEN (S t [Mass/volume] in mg/dL [facility] [place] [facility]) VLDL Cholesterol 76 mg/dL Above high normal MEDGE N ([facility]) LDL Cholesterol 119 Above high normal MEDGEN (St Calc mg/dL [facility]) Cholesterol 176 Normal (applies MEDGEN (St [Mass/volume] in mg/dL to non-numeric [facility] Serum or Plasma results) Medical, ) Triglyceride 280 Above high normal MEDGEN (S t [Mass/volume] in mg/dL [facility] Serum or Plasma Medical, ) HDL Cholesterol 26 mg/dL Below low normal [facility] ([facility], ) VLDL Cholesterol 56 mg/dL Above high normal MEDGE N (St [facility], ) LDL Cholesterol 94 mg/dL Normal (applies MEDGEN ( St Calc to non-numeric [facility] results) Medical, ) ID Date Data Source [id number] 03/03/2019 12:00:00 AM EST [facility] ([facility], ) Name Value Range Interpretation Description Data Sup porting Code Source(s) Document(s ) WBC 0-5 Normal (applies MEDGEN (St to non-numeric [facility] results) Medical, ) RBC 0-2 Normal (applies MEDGEN (St to non-numeric [facility] results) Medical, ) Epithelial 0-10 Normal (applies MEDGEN (St Cells (non to non-numeric [facility] renal) results) Medical, ) Mucus Threads Present Normal (applies MEDGEN (St to non-numeric [facility] results) Medical, ) WBC 0-5 Normal (applies MEDGEN (St to non-numeric [facility] results) Medical, ) Bacteria Few Normal (applies MEDGEN (St [Presence] in to non-numeric [facility] Prostatic results) Medical, ) fluid by Light microscopy Epithelial 0-10 Normal (applies MEDGEN (St Cells (non to non-numeric [facility] renal) results) Medical, ) RBC None seen Normal (applies MEDGEN (St to non-numeric [facility] results) Medical, ) Mucus Threads Present Normal (applies MEDGEN (St to non-numeric [facility] results) Medical, ) Bacteria None seen Normal (applies MEDGEN (St [Presence] in to non-numeric [facility] Prostatic results) Medical, ) fluid by Light microscopy ID Date Data Source [id number] 03/03/2019 12:00:00 AM EST [facility] ([facility], ) Name Value Range Interpretation Description Data Sup porting Code Source(s) Document(s ) Glucose 155 Above high MEDGEN (St [Mass/volume] in mg/dL normal [facility] Urine collected for Medical, unspecified PC) duration Urea nitrogen 17 mg/dL Normal (applies MEDGEN (St [Mass/volume] in to non-numeric [facility] Serum or Plasma results) Medical, PC) Creatinine 0.77 Normal (applies MEDGEN (St [Interpretation] in mg/dL to non-numeric [facility] Urine results) Medical, PC) eGFR If NonAfricn 90 Normal (applies MEDGEN (St Am mL/min/1 to non-numeric [facility] .73 results) Medical, PC) eGFR If Africn Am 103 Normal (applies MEDGEN (St mL/min/1 to non-numeric [facility] .73 results) Medical, PC) BUN/Creatinine 22 Normal (applies MEDGEN (S t Ratio to non-numeric [facility] results) Medical, PC) Sodium 140 Normal (applies MEDGEN (St [Moles/volume] in mmol/L to non-numeric [facility] Serum or Plasma results) Medical, PC) Chloride 99 Normal (applies MEDGEN (St [Moles/volume] in mmol/L to non-numeric [facility] Serum or Plasma results) Medical, PC) Potassium 4.5 Normal (applies MEDGEN (St [Mass/volume] in mmol/L to non-numeric [facility] Blood results) Medical, PC) Calcium 9.6 Normal (applies MEDGEN (St [Moles/volume] in mg/dL to non-numeric [facility] Urine collected for results) Medical, unspecified PC) duration Carbon dioxide, 24 Normal (applies MEDGEN ( St total mmol/L to non-numeric [facility] [Moles/volume] in results) Medical, Serum or Plasma PC) Protein 7.6 g/dL Normal (applies MEDGEN (St [Mass/volume] in to non-numeric [facility] Serum or Plasma results) Medical, PC) Microalbumin 4.1 g/dL Normal (applies MEDGEN (St [Mass/time] in to non-numeric [facility] Urine collected for results) Medical, unspecified PC) duration Globulin, Total 3.5 g/dL Normal (applies MEDGEN ( St to non-numeric [facility] results) Medical, PC) Bilirubin.total 0.4 Normal (applies MEDGEN ( St [Mass/volume] in mg/dL to non-numeric [facility] Serum or Plasma results) Medical, PC) A/G Ratio 1.2 Normal (applies MEDGEN (St to non-numeric [facility] results) Medical, ) Aspartate 17 IU/L Normal (applies MEDGEN (St aminotransferase to non-numeric [facility] [Enzymatic results) Medical, activity/volume] in ) Serum or Plasma Alkaline 99 IU/L Normal (applies MEDGEN (St phosphatase to non-numeric [facility] [Enzymatic results) Medical, activity/volume] in ) Serum, Plasma or Blood Alanine 20 IU/L Normal (applies MEDGEN (St aminotransferase to non-numeric [facility] [Enzymatic results) Medical, activity/volume] in ) Serum or Plasma Leukocytes 7.6 Normal (applies MEDGEN (St [#/volume] in Blood x10E3/uL to non-numeric [facility] by Automated count results) Medical, ) Erythrocytes 4.60 Normal (applies MEDGEN (St [#/volume] in Blood x10E6/uL to non-numeric [facility] by Automated count results) Medical, ) Hematocrit [Volume 39.2 % Normal (applies MEDGE N (St Fraction] of Blood to non-numeric [facility] by Automated count results) Medical, ) Hemoglobin 13.2 Normal (applies MEDGEN (St [Mass/volume] in g/dL to non-numeric [facility] Blood results) Medical, ) MCH 28.7 pg Normal (applies MEDGEN (St to non-numeric [facility] results) Medical, ) MCV 85 fL Normal (applies MEDGEN (St to non-numeric [facility] results) [facility], ) MCHC 33.7 Normal (applies MEDGEN (St g/dL to non-numeric [facility] results) Medical, ) RDW 14.6 % Normal (applies MEDGEN (St to non-numeric [facility] results) Medical, ) Platelets [#/area] 214 Normal (applies MEDGE N (St in Blood by x10E3/uL to non-numeric [facility] Microscopy high results) [facility], power field ) Neutrophils [#] in 62 % Normal (applies MEDGE N (St Body fluid by to non-numeric [facility] Manual count results) [facility], ) Lymphs 31 % Normal (applies MEDGEN (St to non-numeric [facility] results) Medical, ) Monocytes 6 % Normal (applies MEDGEN (St [#/volume] in Cord to non-numeric [facility] blood results) Medical, PC) Basos 0 % Normal (applies MEDGEN (St to non-numeric [facility] results) Medical, PC) Eos 1 % Normal (applies MEDGEN (St to non-numeric [facility] results) Medical, PC) Neutrophils 4.7 Normal (applies MEDGEN (St (Absolute) x10E3/uL to non-numeric [facility] results) Medical, PC) Lymphs (Absolute) 2.3 Normal (applies MEDGEN (St x10E3/uL to non-numeric [facility] results) Medical, PC) Monocytes(Absolute) 0.5 Normal (applies MEDG EN (St x10E3/uL to non-numeric [facility] results) Medical, PC) Baso (Absolute) 0.0 Normal (applies MEDGEN ( St x10E3/uL to non-numeric [facility] results) Medical, PC) Eos (Absolute) 0.1 Normal (applies MEDGEN (S t x10E3/uL to non-numeric [facility] results) Medical, PC) Immature 0 % Normal (applies MEDGEN (St Granulocytes to non-numeric [facility] results) Medical, PC) Immature Grans 0.0 Normal (applies MEDGEN (S t (Abs) x10E3/uL to non-numeric [facility] results) Medical, ) ID Date Data Source [id number] 03/03/2019 12:00:00 AM EST [facility] ([facility]) Name Value Range Interpretation Description Data Sup porting Code Source(s) Document(s ) Specific gravity 1.029 Normal (applies MEDGEN (St of Pericardial to non-numeric [facility] fluid by results) Medical, Refractometry PC) pH of Lower 5.5 Normal (applies MEDGEN (St respiratory to non-numeric [facility] specimen results) Medical, ) Appearance of Turbid Abnormal MEDGEN (St Abdomen (applies to [facility] non-numeric Medical, results) PC) Urine-Color Yellow Normal (applies MEDGEN (St to non-numeric [facility] results) Medical, PC) WBC Esterase Negative Normal (applies MEDGEN (St to non-numeric [facility] results) Medical, PC) Protein Abnormal MEDGEN (St [Mass/volume] in (applies to [facility] Lower non-numeric Medical, respiratory results) PC) specimen Glucose Negative Normal (applies MEDGEN (St [Mass/volume] in to non-numeric [facility] Urine collected results) Medical, for unspecified PC) duration Ketones Trace Abnormal MEDGEN (St [Presence] in (applies to [facility] Blood by Tablet non-numeric Medical, results) PC) Occult Blood Negative Normal (applies MEDGEN (St to non-numeric [facility] results) Medical, PC) Urobilinogen,Smita 1.0 mg/dL Normal (applies MEDGEN (St i-Qn to non-numeric [facility] results) Medical, PC) Bilirubin Negative Normal (applies MEDGEN (St [Presence] in to non-numeric [facility] Peritoneal fluid results) Medical, PC) Microscopic See below: Normal (applies MEDGEN (St Examination to non-numeric [facility] results) Medical, PC) Nitrite, Urine Negative Normal (applies MEDGEN (S t to non-numeric [facility] results) Medical, PC) pH of Lower 7.5 Normal (applies MEDGEN (St respiratory to non-numeric [facility] specimen results) Medical, PC) Specific gravity 1.029 Normal (applies MEDGEN (St of Pericardial to non-numeric [facility] fluid by results) Medical, Refractometry PC) Urine-Color Yellow Normal (applies MEDGEN (St to non-numeric [facility] results) Medical, PC) Appearance of Clear Normal (applies MEDGEN (St Abdomen to non-numeric [facility] results) Medical, PC) WBC Esterase Trace Abnormal MEDGEN (St (applies to [facility] non-numeric Medical, results) PC) Glucose Negative Normal (applies MEDGEN (St [Mass/volume] in to non-numeric [facility] Urine collected results) Medical, for unspecified PC) duration Protein Abnormal MEDGEN (St [Mass/volume] in (applies to [facility] Lower non-numeric Medical, respiratory results) PC) specimen Ketones Negative Normal (applies MEDGEN (St [Presence] in to non-numeric [facility] Blood by Tablet results) Medical, PC) Occult Blood Negative Normal (applies MEDGEN (St to non-numeric [facility] results) Medical, PC) Bilirubin Negative Normal (applies MEDGEN (St [Presence] in to non-numeric [facility] Peritoneal fluid results) Medical, PC) Urobilinogen,Smita 1.0 mg/dL Normal (applies MEDGEN (St i-Qn to non-numeric [facility] results) Medical, PC) Nitrite, Urine Negative Normal (applies MEDGEN (S t to non-numeric [facility] results) Medical, ) Microscopic See below: Normal (applies MEDGEN (St Examination to non-numeric [facility] results) Medical, ) ID Date Data Source [id number] 11/11/2018 12:00:00 AM EDT [facility] ([facility]) Name Value Range Interpretation Code Description Data Margarita rce(s) Supporting Document(s ) ID Date Data Source [id number] 11/11/2018 12:00:00 AM EDT [facility] ([facility]) Name Value Range Interpretation Code Description Data Margarita rce(s) Supporting Document(s ) PDF Image . Normal (applies to MEDGEN (St non-numeric results) [facility], [facility]) ID Date Data Source [id number] 11/11/2018 12:00:00 AM EDT [facility] ([facility]) Name Value Range Interpretation Code Description Data Margarita rce(s) Supporting Document(s ) Result 1 Normal (applies to MEDGEN (St non-numeric results) [facility], [facility]) ID Date Data Source [id number] 11/11/2018 12:00:00 AM EDT [facility] ([facility]) Name Value Range Interpretation Description Data Sup porting Code Source(s) Document(s ) Urine Final Normal (applies to MEDGEN (St Culture, report non-numeric [facility] Routine results) Medical, ) ID Date Data Source [id number] 11/11/2018 12:00:00 AM EDT [facility] ([facility]) Name Value Range Interpretation Description Data Sup porting Code Source(s) Document(s ) Hemoglobin 8.0 % Above high normal MEDGEN (St A1c/Hemoglobin. [facility] total in Blood Medical, ) ID Date Data Source [id number] 11/11/2018 12:00:00 AM EDT [facility] ([facility]) Name Value Range Interpretation Description Data Sup porting Code Source(s) Document(s ) Thyroxine 8.3 ug/dL Normal (applies to MEDGEN (St (T4) non-numeric [facility] results) Medical, ) T3 Uptake 32 % Normal (applies to MEDGEN (St non-numeric [facility] results) [facility], ) Free 2.7 Normal (applies to MEDGEN (St Thyroxine non-numeric [facility] Index results) [facility], ) ID Date Data Source [id number] 11/11/2018 12:00:00 AM EDT [facility] ([facility], ) Name Value Range Interpretation Description Data Sup porting Code Source(s) Document(s ) Iron 372 ug/dL Normal (applies to MEDGEN (St Bind.Cap.(TIBC non-numeric [facility] ) results) [facility], ) Iron 49 ug/dL Normal (applies to MEDGEN (St [Mass/volume] non-numeric [facility] in Serum or results) [facility], ) Plasma UIBC 323 ug/dL Normal (applies to MEDGEN (St non-numeric [facility] results) [facility], ) Iron 13 % Below low normal MEDGEN (St saturation [facility] [Mass [facility], ) Fraction] in Serum or Plasma ID Date Data Source [id number] 11/11/2018 12:00:00 AM EDT MEDGEN ([facility], ) Name Value Range Interpretation Description Data Sup porting Code Source(s) Document(s ) Cholesterol 176 Normal (applies MEDGEN (St [Mass/volume] in mg/dL to non-numeric [facility] Serum or Plasma results) [facility], ) Triglyceride 280 Above high normal MEDGEN (S t [Mass/volume] in mg/dL [facility] Serum or Plasma [facility], ) HDL Cholesterol 26 mg/dL Below low normal MEDGEN ([facility], ) VLDL Cholesterol 56 mg/dL Above high normal MEDGE N ([facility], ) LDL Cholesterol 94 mg/dL Normal (applies MEDGEN ( St Calc to non-numeric [facility]'s results) [facility], ) ID Date Data Source [id number] 11/11/2018 12:00:00 AM EDT [facility] ([facility], ) Name Value Range Interpretation Description Data Sup porting Code Source(s) Document(s ) WBC 0-5 Normal (applies MEDGEN (St to non-numeric [facility]'s results) [facility], ) RBC None seen Normal (applies MEDGEN (St to non-numeric [facility]'s results) [facility], ) Epithelial 0-10 Normal (applies MEDGEN (St Cells (non to non-numeric [facility] renal) results) Medical, PC) Mucus Threads Present Normal (applies MEDGEN (St to non-numeric [facility] results) Medical, PC) Bacteria None seen Normal (applies MEDGEN (St [Presence] in to non-numeric [facility]'s Prostatic results) Medical, PC) fluid by Light microscopy ID Date Data Source [id number] 11/11/2018 12:00:00 AM EDT [facility] ([facility]) Name Value Range Interpretation Description Data Sup porting Code Source(s) Document(s ) Specific gravity 1.029 Normal (applies MEDGEN (St of Pericardial to non-numeric [facility] fluid by results) Medical, Refractometry PC) pH of Lower 7.5 Normal (applies MEDGEN (St respiratory to non-numeric [facility] specimen results) Medical, PC) Appearance of Clear Normal (applies MEDGEN (St Abdomen to non-numeric [facility] results) Medical, PC) Urine-Color Yellow Normal (applies MEDGEN (St to non-numeric [facility] results) Medical, PC) WBC Esterase Trace Abnormal MEDGEN (St (applies to [facility] non-numeric Medical, results) PC) Glucose Negative Normal (applies MEDGEN (St [Mass/volume] in to non-numeric [facility] Urine collected results) Medical, for unspecified PC) duration Protein Abnormal MEDGEN (St [Mass/volume] in (applies to [facility] Lower non-numeric Medical, respiratory results) PC) specimen Ketones Negative Normal (applies MEDGEN (St [Presence] in to non-numeric [facility] Blood by Tablet results) Medical, PC) Occult Blood Negative Normal (applies MEDGEN (St to non-numeric [facility] results) Medical, PC) Bilirubin Negative Normal (applies MEDGEN (St [Presence] in to non-numeric [facility] Peritoneal fluid results) Medical, PC) Nitrite, Urine Negative Normal (applies MEDGEN (S t to non-numeric [facility] results) Medical, PC) Urobilinogen,Smita 1.0 mg/dL Normal (applies MEDGEN (St i-Qn to non-numeric [facility] results) Medical, PC) Microscopic See below: Normal (applies MEDGEN (St Examination to non-numeric [facility] results) Medical, PC) ID Date Data Source [id number] 11/11/2018 12:00:00 AM EDT [facility] ([facility], ) Name Value Range Interpretation Description Data Sup porting Code Source(s) Document(s ) Urea nitrogen 18 mg/dL Normal (applies MEDGEN (St [Mass/volume] in to non-numeric [facility] Serum or Plasma results) Medical, PC) Glucose 141 Above high MEDGEN (St [Mass/volume] in mg/dL normal [facility] Urine collected for Medical, unspecified PC) duration Creatinine 0.73 Normal (applies MEDGEN (St [Interpretation] in mg/dL to non-numeric [facility]' s Urine results) Medical, PC) eGFR If NonAfricn 96 Normal (applies MEDGEN (St Am mL/min/1 to non-numeric [facility] .73 results) Medical, PC) eGFR If Africn Am 110 Normal (applies MEDGEN (St mL/min/1 to non-numeric [facility] .73 results) Medical, PC) BUN/Creatinine 25 Above high MEDGEN (St Ratio normal [facility] Medical, PC) Sodium 142 Normal (applies MEDGEN (St [Moles/volume] in mmol/L to non-numeric [facility] Serum or Plasma results) Medical, PC) Potassium 4.3 Normal (applies MEDGEN (St [Mass/volume] in mmol/L to non-numeric [facility] Blood results) Medical, PC) Chloride 104 Normal (applies MEDGEN (St [Moles/volume] in mmol/L to non-numeric [facility] Serum or Plasma results) Medical, PC) Carbon dioxide, 25 Normal (applies MEDGEN ( St total mmol/L to non-numeric [facility] [Moles/volume] in results) Medical, Serum or Plasma PC) Calcium 9.9 Normal (applies MEDGEN (St [Moles/volume] in mg/dL to non-numeric [facility] Urine collected for results) Medical, unspecified PC) duration Protein 7.4 g/dL Normal (applies MEDGEN (St [Mass/volume] in to non-numeric [facility] Serum or Plasma results) Medical, PC) Microalbumin 4.3 g/dL Normal (applies MEDGEN (St [Mass/time] in to non-numeric [facility] Urine collected for results) Medical, unspecified PC) duration Globulin, Total 3.1 g/dL Normal (applies MEDGEN ( St to non-numeric [facility] results) Medical, PC) Bilirubin.total 0.4 Normal (applies MEDGEN ( St [Mass/volume] in mg/dL to non-numeric [facility] Serum or Plasma results) Medical, ) A/G Ratio 1.4 Normal (applies MEDGEN (St to non-numeric [facility] results) [facility], ) Aspartate 15 IU/L Normal (applies MEDGEN (St aminotransferase to non-numeric [facility]'s [Enzymatic results) Medical, activity/volume] in ) Serum or Plasma Alkaline 103 IU/L Normal (applies MEDGEN (St phosphatase to non-numeric [facility] [Enzymatic results) Medical, activity/volume] in ) Serum, Plasma or Blood Alanine 12 IU/L Normal (applies MEDGEN (St aminotransferase to non-numeric [facility] [Enzymatic results) Medical, activity/volume] in ) Serum or Plasma ID Date Data Source [id number] 11/11/2018 12:00:00 AM EDT [facility] ([facility], ) Name Value Range Interpretation Description Data Sup porting Code Source(s) Document(s ) Leukocytes 7.7 Normal (applies MEDGEN (St [#/volume] in x10E3/uL to non-numeric [facility] Blood by results) Medical, ) Automated count Hemoglobin 12.9 Normal (applies MEDGEN (St [Mass/volume] in g/dL to non-numeric [facility] Blood results) [facility], ) Erythrocytes 4.60 Normal (applies MEDGEN (St [#/volume] in x10E6/uL to non-numeric [facility] Blood by results) [facility], ) Automated count Hematocrit 38.8 % Normal (applies MEDGEN (St [Volume to non-numeric [facility]'s Fraction] of results) [facility], ) Blood by Automated count MCH 28.0 pg Normal (applies MEDGEN (St to non-numeric [facility]'s results) Medical, ) MCV 84 fL Normal (applies MEDGEN (St to non-numeric [facility]'s results) Medical, ) RDW 14.8 % Normal (applies MEDGEN (St to non-numeric [facility]'s results) [facility], ) MCHC 33.2 Normal (applies MEDGEN (St g/dL to non-numeric [facility] results) Medical, ) Platelets 195 Normal (applies MEDGEN (St [#/area] in x10E3/uL to non-numeric [facility] Blood by results) [facility], ) Microscopy high power field Neutrophils [#] 63 % Normal (applies MEDGEN ( St in Body fluid by to non-numeric [facility] Manual count results) [facility], ) Lymphs 29 % Normal (applies MEDGEN (St to non-numeric [facility]'s results) [facility], ) Eos 1 % Normal (applies MEDGEN (St to non-numeric [facility]'s results) [facility], ) Monocytes 7 % Normal (applies MEDGEN (St [#/volume] in to non-numeric [facility] Cord blood results) [facility], ) Neutrophils 4.8 Normal (applies MEDGEN (St (Absolute) x10E3/uL to non-numeric [facility] results) [facility], ) Basos 0 % Normal (applies MEDGEN (St to non-numeric [facility]'s results) [facility], ) Lymphs 2.2 Normal (applies MEDGEN (St (Absolute) x10E3/uL to non-numeric [facility]'s results) [facility], ) Monocytes(Absolu 0.5 Normal (applies MEDGEN (St te) x10E3/uL to non-numeric [facility]'s results) [facility], ) Eos (Absolute) 0.1 Normal (applies MEDGEN (S t x10E3/uL to non-numeric [facility]'s results) [facility], ) Immature 0 % Normal (applies MEDGEN (St Granulocytes to non-numeric [facility]'s results) [facility], ) Baso (Absolute) 0.0 Normal (applies MEDGEN ( St x10E3/uL to non-numeric [facility]'s results) [facility], ) Immature Grans 0.0 Normal (applies MEDGEN (S t (Abs) x10E3/uL to non-numeric [facility] results) [facility], ) ID Date Data Source [id number] 11/11/2018 12:00:00 AM EDT [facility] ([facility], ) Name Value Range Interpretation Code Description Data Margarita rce(s) Supporting Document(s ) ID Date Data Source [id number] 11/11/2018 12:00:00 AM EDT [facility] ([facility], ) Name Value Range Interpretation Code Description Data Margarita rce(s) Supporting Document(s ) PDF Image . Normal (applies to MEDGEN (St non-numeric results) [facility], ) ID Date Data Source [id number] 11/11/2018 12:00:00 AM EDT [facility] ([facility], ) Name Value Range Interpretation Code Description Data Margarita rce(s) Supporting Document(s ) Result 1 Normal (applies to MEDGEN (St non-numeric results) [facility], ) ID Date Data Source [id number] 11/11/2018 12:00:00 AM EDT [facility], ) Name Value Range Interpretation Description Data Sup porting Code Source(s) Document(s ) Urine Final Normal (applies to MEDGEN (St Culture, report non-numeric [facility] Routine results) [facility], ) ID Date Data Source [id number] 11/11/2018 12:00:00 AM EDT [facility], ) Name Value Range Interpretation Description Data Sup porting Code Source(s) Document(s ) Hemoglobin 8.0 % Above high normal MEDGEN (St A1c/Hemoglobin. [facility] total in Blood [facility], ) ID Date Data Source [id number] 11/11/2018 12:00:00 AM EDT [facility] ([facility], ) Name Value Range Interpretation Description Data Sup porting Code Source(s) Document(s ) Thyroxine 8.3 ug/dL Normal (applies to MEDGEN (St (T4) non-numeric [facility]'s results) [facility], ) T3 Uptake 32 % Normal (applies to MEDGEN (St non-numeric [facility]'s results) [facility], ) Free 2.7 Normal (applies to MEDGEN (St Thyroxine non-numeric [facility] Index results) [facility], ) ID Date Data Source [id number] 11/11/2018 12:00:00 AM EDT [facility] ([facility], ) Name Value Range Interpretation Description Data Sup porting Code Source(s) Document(s ) UIBC 323 ug/dL Normal (applies to MEDGEN (St non-numeric [facility]'s results) [facility], ) Iron 372 ug/dL Normal (applies to MEDGEN (St Bind.Cap.(TIBC non-numeric [facility]'s ) results) Medical, ) Iron 49 ug/dL Normal (applies to MEDGEN (St [Mass/volume] non-numeric [facility] in Serum or results) Medical, ) Plasma Iron 13 % Below low normal MEDGEN (St saturation [facility] [[facility], ) Fraction] in Serum or Plasma ID Date Data Source [id number] 11/11/2018 12:00:00 AM EDT MED[facility] ([facility], ) Name Value Range Interpretation Description Data Sup porting Code Source(s) Document(s ) Triglyceride 280 Above high normal MEDGEN (S t [Mass/volume] in mg/dL [facility] Serum or Plasma Medical, ) Cholesterol 176 Normal (applies [facility]GEN (St [Mass/volume] in mg/dL to non-numeric [facility] Serum or Plasma results) Medical, ) HDL Cholesterol 26 mg/dL Below low normal [facility] ([facility], ) VLDL Cholesterol 56 mg/dL Above high normal MEDGE N ([facility], ) LDL Cholesterol 94 mg/dL Normal (applies MEDGEN ( St Calc to non-numeric [facility]'s results) [facility], ) ID Date Data Source [id number] 11/11/2018 12:00:00 AM EDT MEDGEN ([facility], ) Name Value Range Interpretation Description Data Sup porting Code Source(s) Document(s ) WBC 0-5 Normal (applies MEDGEN (St to non-numeric [facility] results) Medical, PC) RBC None seen Normal (applies MEDGEN (St to non-numeric [facility] results) Medical, PC) Epithelial 0-10 Normal (applies MEDGEN (St Cells (non to non-numeric [facility] renal) results) Medical, ) Mucus Threads Present Normal (applies [facility]GEN (St to non-numeric [facility] results) Medical, ) Bacteria None seen Normal (applies [facility]GEN (St [Presence] in to non-numeric [facility] Prostatic results) Medical, ) fluid by Light microscopy ID Date Data Source [id number] 11/11/2018 12:00:00 AM EDT [facility] ([facility], ) Name Value Range Interpretation Description Data Sup porting Code Source(s) Document(s ) pH of Lower 7.5 Normal (applies MEDGEN (St respiratory to non-numeric [facility] specimen results) Medical, ) Specific gravity 1.029 Normal (applies [facility]GEN (St of Pericardial to non-numeric [facility] fluid by results) Medical, Refractometry ) Appearance of Clear Normal (applies MEDGEN (St Abdomen to non-numeric [facility] results) Medical, PC) Urine-Color Yellow Normal (applies MEDGEN (St to non-numeric [facility] results) Medical, PC) Protein Abnormal MEDGEN (St [Mass/volume] in (applies to [facility] Lower non-numeric Medical, respiratory results) PC) specimen WBC Esterase Trace Abnormal MEDGEN (St (applies to [facility] non-numeric Medical, results) PC) Ketones Negative Normal (applies MEDGEN (St [Presence] in to non-numeric [facility] Blood by Tablet results) Medical, ) Glucose Negative Normal (applies MEDGEN (St [Mass/volume] in to non-numeric [facility] Urine collected results) Medical, for unspecified PC) duration Bilirubin Negative Normal (applies MEDGEN (St [Presence] in to non-numeric [facility] Peritoneal fluid results) Medical, ) Occult Blood Negative Normal (applies MEDGEN (St to non-numeric [facility] results) Medical, ) Urobilinogen,Smita 1.0 mg/dL Normal (applies MEDGEN (St i-Qn to non-numeric [facility] results) Medical, ) Nitrite, Urine Negative Normal (applies MEDGEN (S t to non-numeric [facility] results) Medical, ) Microscopic See below: Normal (applies MEDGEN (St Examination to non-numeric [facility] results) Medical, ) ID Date Data Source [id number] 11/11/2018 12:00:00 AM EDT [facility] ([facility], ) Name Value Range Interpretation Description Data Sup porting Code Source(s) Document(s ) Glucose 141 Above high MEDGEN (St [Mass/volume] in mg/dL normal [facility] Urine collected for Medical, unspecified PC) duration Creatinine 0.73 Normal (applies MEDGEN (St [Interpretation] in mg/dL to non-numeric Stew' s Urine results) Medical, ) Urea nitrogen 18 mg/dL Normal (applies MEDGEN (St [Mass/volume] in to non-numeric [facility] Serum or Plasma results) Medical, ) eGFR If Africn Am 110 Normal (applies MEDGEN (St mL/min/1 to non-numeric [facility] .73 results) Medical, ) eGFR If NonAfricn 96 Normal (applies MEDGEN (St Am mL/min/1 to non-numeric [facility] .73 results) Medical, PC) Sodium 142 Normal (applies MEDGEN (St [Moles/volume] in mmol/L to non-numeric [facility] Serum or Plasma results) Medical, PC) BUN/Creatinine 25 Above high MEDGEN (St Ratio normal [facility] Medical, PC) Potassium 4.3 Normal (applies MEDGEN (St [Mass/volume] in mmol/L to non-numeric [facility] Blood results) Medical, PC) Chloride 104 Normal (applies MEDGEN (St [Moles/volume] in mmol/L to non-numeric [facility] Serum or Plasma results) Medical, PC) Carbon dioxide, 25 Normal (applies MEDGEN ( St total mmol/L to non-numeric [facility] [Moles/volume] in results) Medical, Serum or Plasma PC) Calcium 9.9 Normal (applies MEDGEN (St [Moles/volume] in mg/dL to non-numeric [facility] Urine collected for results) Medical, unspecified PC) duration Protein 7.4 g/dL Normal (applies MEDGEN (St [Mass/volume] in to non-numeric [facility] Serum or Plasma results) Medical, PC) Microalbumin 4.3 g/dL Normal (applies MEDGEN (St [Mass/time] in to non-numeric [facility] Urine collected for results) Medical, unspecified PC) duration Globulin, Total 3.1 g/dL Normal (applies MEDGEN ( St to non-numeric [facility] results) Medical, PC) A/G Ratio 1.4 Normal (applies MEDGEN (St to non-numeric [facility] results) Medical, PC) Alkaline 103 IU/L Normal (applies MEDGEN (St phosphatase to non-numeric [facility] [Enzymatic results) Medical, activity/volume] in PC) Serum, Plasma or Blood Bilirubin.total 0.4 Normal (applies MEDGEN ( St [Mass/volume] in mg/dL to non-numeric [facility] Serum or Plasma results) Medical, PC) Aspartate 15 IU/L Normal (applies MEDGEN (St aminotransferase to non-numeric [facility] [Enzymatic results) Medical, activity/volume] in PC) Serum or Plasma Alanine 12 IU/L Normal (applies MEDGEN (St aminotransferase to non-numeric [facility] [Enzymatic results) Medical, activity/volume] in PC) Serum or Plasma ID Date Data Source [id number] 11/11/2018 12:00:00 AM EDT [facility] ([facility], ) Name Value Range Interpretation Description Data Sup porting Code Source(s) Document(s ) Leukocytes 7.7 Normal (applies MEDGEN (St [#/volume] in x10E3/uL to non-numeric [facility] Blood by results) Medical, ) Automated count Hemoglobin 12.9 Normal (applies [facility]GEN (St [Mass/volume] in g/dL to non-numeric [facility] Blood results) Medical, ) Erythrocytes 4.60 Normal (applies MEDGEN (St [#/volume] in x10E6/uL to non-numeric [facility] Blood by results) Medical, ) Automated count MCV 84 fL Normal (applies MEDGEN (St to non-numeric [facility] results) Medical, ) Hematocrit 38.8 % Normal (applies MEDGEN (St [Volume to non-numeric [facility] Fraction] of results) Medical, ) Blood by Automated count MCH 28.0 pg Normal (applies MEDGEN (St to non-numeric [facility] results) Medical, ) RDW 14.8 % Normal (applies MEDGEN (St to non-numeric [facility] results) Medical, ) MCHC 33.2 Normal (applies MEDGEN (St g/dL to non-numeric [facility] results) Medical, ) Neutrophils [#] 63 % Normal (applies MEDGEN ( St in Body fluid by to non-numeric [facility] Manual count results) Medical, ) Platelets 195 Normal (applies MEDGEN (St [#/area] in x10E3/uL to non-numeric [facility] Blood by results) Medical, ) Microscopy high power field Monocytes 7 % Normal (applies MEDGEN (St [#/volume] in to non-numeric [facility] Cord blood results) Medical, ) Lymphs 29 % Normal (applies MEDGEN (St to non-numeric [facility] results) Medical, ) Basos 0 % Normal (applies MEDGEN (St to non-numeric [facility] results) Medical, ) Eos 1 % Normal (applies MEDGEN (St to non-numeric [facility] results) Medical, ) Neutrophils 4.8 Normal (applies MEDGEN (St (Absolute) x10E3/uL to non-numeric [facility] results) Medical, ) Lymphs 2.2 Normal (applies MEDGEN (St (Absolute) x10E3/uL to non-numeric [facility] results) [facility], ) Eos (Absolute) 0.1 Normal (applies MEDGEN (S t x10E3/uL to non-numeric [facility] results) [facility], ) Monocytes(Absolu 0.5 Normal (applies MEDGEN (St te) x10E3/uL to non-numeric [facility] results) [facility], ) Immature 0 % Normal (applies MEDGEN (St Granulocytes to non-numeric [facility] results) [facility], ) Baso (Absolute) 0.0 Normal (applies MEDGEN ( St x10E3/uL to non-numeric [facility] results) [facility], ) Immature Grans 0.0 Normal (applies MEDGEN (S t (Abs) x10E3/uL to non-numeric [facility] results) [facility], ) ID Date Data Source [id number] 11/11/2018 12:00:00 AM EDT [facility] ([facility], ) Name Value Range Interpretation Description Data Sup porting Code Source(s) Document(s ) Iron 372 ug/dL Normal (applies to MEDGEN (St Bind.Cap.(TIBC non-numeric [facility] ) results) [facility], ) UIBC 323 ug/dL Normal (applies to MEDGEN (St non-numeric [facility] results) [facility], ) Iron 13 % Below low normal MEDGEN (St saturation [facility] [[facility], ) Fraction] in Serum or Plasma Iron 49 ug/dL Normal (applies to MEDGEN (St [Mass/volume] non-numeric [facility] in Serum or results) [facility], ) Plasma ID Date Data Source [id number] 11/11/2018 12:00:00 AM EDT [facility] ([facility], ) Name Value Range Interpretation Description Data Sup porting Code Source(s) Document(s ) Triglyceride 280 Above high normal MEDGEN (S t [Mass/volume] in mg/dL [facility] Serum or Plasma [facility], ) Cholesterol 176 Normal (applies MEDGEN (St [Mass/volume] in mg/dL to non-numeric [facility] Serum or Plasma results) [facility], ) HDL Cholesterol 26 mg/dL Below low normal [facility] ([facility], ) VLDL Cholesterol 56 mg/dL Above high normal MEDGE N ([facility], PC) LDL Cholesterol 94 mg/dL Normal (applies MEDGEN ( St Calc to non-numeric [facility] results) Medical, PC) ID Date Data Source [id number] 11/11/2018 12:00:00 AM EDT MEDGEN ([facility], ) Name Value Range Interpretation Description Data Sup porting Code Source(s) Document(s ) RBC None seen Normal (applies MEDGEN (St to non-numeric [facility] results) Medical, PC) WBC 0-5 Normal (applies MEDGEN (St to non-numeric [facility] results) Medical, PC) Mucus Threads Present Normal (applies MEDGEN (St to non-numeric [facility] results) Medical, PC) Epithelial 0-10 Normal (applies MEDGEN (St Cells (non to non-numeric [facility] renal) results) Medical, PC) Bacteria None seen Normal (applies MEDGEN (St [Presence] in to non-numeric [facility] Prostatic results) Medical, PC) fluid by Light microscopy ID Date Data Source [id number] 11/11/2018 12:00:00 AM EDT MEDGEN ([facility], ) Name Value Range Interpretation Description Data Sup porting Code Source(s) Document(s ) Specific gravity 1.029 Normal (applies MEDGEN (St of Pericardial to non-numeric [facility] fluid by results) Medical, Refractometry PC) Urine-Color Yellow Normal (applies MEDGEN (St to non-numeric [facility] results) Medical, PC) pH of Lower 7.5 Normal (applies MEDGEN (St respiratory to non-numeric [facility] specimen results) Medical, PC) Appearance of Clear Normal (applies MEDGEN (St Abdomen to non-numeric [facility] results) Medical, PC) WBC Esterase Trace Abnormal MEDGEN (St (applies to [facility] non-numeric Medical, results) PC) Protein Abnormal MEDGEN (St [Mass/volume] in (applies to [facility] Lower non-numeric Medical, respiratory results) PC) specimen Glucose Negative Normal (applies MEDGEN (St [Mass/volume] in to non-numeric [facility] Urine collected results) Medical, for unspecified PC) duration Ketones Negative Normal (applies MEDGEN (St [Presence] in to non-numeric [facility] Blood by Tablet results) Medical, PC) Bilirubin Negative Normal (applies MEDGEN (St [Presence] in to non-numeric [facility] Peritoneal fluid results) Medical, ) Occult Blood Negative Normal (applies MEDGEN (St to non-numeric [facility] results) Medical, ) Nitrite, Urine Negative Normal (applies MEDGEN (S t to non-numeric [facility] results) Medical, ) Urobilinogen,Smita 1.0 mg/dL Normal (applies MEDGEN (St i-Qn to non-numeric [facility] results) Medical, ) Microscopic See below: Normal (applies MEDGEN (St Examination to non-numeric [facility] results) Medical, ) ID Date Data Source [id number] 11/11/2018 12:00:00 AM EDT [facility] ([facility], ) Name Value Range Interpretation Description Data Sup porting Code Source(s) Document(s ) Glucose 141 Above high MEDGEN (St [Mass/volume] in mg/dL normal [facility] Urine collected for Medical, unspecified PC) duration Urea nitrogen 18 mg/dL Normal (applies MEDGEN (St [Mass/volume] in to non-numeric [facility] Serum or Plasma results) Medical, ) Creatinine 0.73 Normal (applies MEDGEN (St [Interpretation] in mg/dL to non-numeric [facility]' s Urine results) Medical, ) eGFR If NonAfricn 96 Normal (applies MEDGEN (St Am mL/min/1 to non-numeric [facility] .73 results) Medical, ) eGFR If Africn Am 110 Normal (applies MEDGEN (St mL/min/1 to non-numeric [facility] .73 results) Medical, ) BUN/Creatinine 25 Above high MEDGEN (St Ratio normal [facility], ) Potassium 4.3 Normal (applies MEDGEN (St [Mass/volume] in mmol/L to non-numeric [facility] Blood results) Medical, ) Sodium 142 Normal (applies MEDGEN (St [Moles/volume] in mmol/L to non-numeric [facility] Serum or Plasma results) Medical, ) Chloride 104 Normal (applies MEDGEN (St [Moles/volume] in mmol/L to non-numeric [facility] Serum or Plasma results) Medical, ) Carbon dioxide, 25 Normal (applies MEDGEN ( St total mmol/L to non-numeric [facility] [Moles/volume] in results) Medical, Serum or Plasma PC) Calcium 9.9 Normal (applies [facility] (St [Moles/volume] in mg/dL to non-numeric [facility] Urine collected for results) Medical, unspecified PC) duration Microalbumin 4.3 g/dL Normal (applies [facility] (St [Mass/time] in to non-numeric [facility] Urine collected for results) Medical, unspecified PC) duration Protein 7.4 g/dL Normal (applies [facility] (St [Mass/volume] in to non-numeric [facility] Serum or Plasma results) Medical, ) A/G Ratio 1.4 Normal (applies [facility] (St to non-numeric [facility] results) Medical, ) Globulin, Total 3.1 g/dL Normal (applies [facility] ( St to non-numeric [facility] results) Medical, ) Alkaline 103 IU/L Normal (applies [facility] (St phosphatase to non-numeric [facility] [Enzymatic results) Medical, activity/volume] in PC) Serum, Plasma or Blood Bilirubin.total 0.4 Normal (applies [facility] ( St [Mass/volume] in mg/dL to non-numeric [facility] Serum or Plasma results) Medical, ) Alanine 12 IU/L Normal (applies [facility] (St aminotransferase to non-numeric [facility] [Enzymatic results) Medical, activity/volume] in PC) Serum or Plasma Aspartate 15 IU/L Normal (applies [facility] (St aminotransferase to non-numeric [facility] [Enzymatic results) Medical, activity/volume] in PC) Serum or Plasma ID Date Data Source [id number] 11/11/2018 12:00:00 AM EDT [facility] ([facility], ) Name Value Range Interpretation Description Data Sup porting Code Source(s) Document(s ) Leukocytes 7.7 Normal (applies [facility] (St [#/volume] in x10E3/uL to non-numeric [facility] Blood by results) Medical, ) Automated count Erythrocytes 4.60 Normal (applies [facility] (St [#/volume] in x10E6/uL to non-numeric [facility] Blood by results) Medical, ) Automated count Hemoglobin 12.9 Normal (applies [facility] (St [Mass/volume] in g/dL to non-numeric [facility] Blood results) Medical, ) Hematocrit 38.8 % Normal (applies [facility] (St [Volume to non-numeric [facility] Fraction] of results) [facility], ) Blood by Automated count MCH 28.0 pg Normal (applies [facility] (St to non-numeric [facility] results) [facility], ) MCV 84 fL Normal (applies [facility] (St to non-numeric [facility] results) [facility], ) MCHC 33.2 Normal (applies [facility] (St g/dL to non-numeric [facility] results) [facility], ) RDW 14.8 % Normal (applies [facility] (St to non-numeric [facility] results) [facility], ) Platelets 195 Normal (applies [facility] (St [#/area] in x10E3/uL to non-numeric [facility] Blood by results) [facility], ) Microscopy high power field Neutrophils [#] 63 % Normal (applies [facility] ( St in Body fluid by to non-numeric [facility] Manual count results) [facility], ) Lymphs 29 % Normal (applies [facility] (St to non-numeric [facility] results) [facility], ) Eos 1 % Normal (applies [facility] (St to non-numeric [facility] results) [facility], ) Monocytes 7 % Normal (applies [facility] (St [#/volume] in to non-numeric [facility] Cord blood results) [facility], ) Basos 0 % Normal (applies [facility] (St to non-numeric [facility] results) [facility], ) Neutrophils 4.8 Normal (applies [facility] (St (Absolute) x10E3/uL to non-numeric [facility] results) [facility], ) Lymphs 2.2 Normal (applies [facility] (St (Absolute) x10E3/uL to non-numeric [facility] results) [facility], ) Monocytes(Absolu 0.5 Normal (applies [facility] (St te) x10E3/uL to non-numeric [facility] results) [facility], ) Baso (Absolute) 0.0 Normal (applies [facility] ( St x10E3/uL to non-numeric [facility] results) [facility], ) Eos (Absolute) 0.1 Normal (applies [facility] (S t x10E3/uL to non-numeric [facility] results) [facility], ) Immature Grans 0.0 Normal (applies [facility] (S t (Abs) x10E3/uL to non-numeric [facility] results) Medical, PC) Immature 0 % Normal (applies [facility] (St Granulocytes to non-numeric [facility] results) Medical, ) ID Date Data Source [id number] 11/11/2018 12:00:00 AM EDT [facility] ([facility]) Name Value Range Interpretation Code Description Data Margarita rce(s) Supporting Document(s ) ID Date Data Source [id number] 11/11/2018 12:00:00 AM EDT [facility] ([facility]) Name Value Range Interpretation Code Description Data Margarita rce(s) Supporting Document(s ) PDF Image . Normal (applies to [facility] (St non-numeric results) [facility], [facility]) PDF Image . Normal (applies to [facility] (St non-numeric results) [facility], PC) ID Date Data Source [id number] 11/11/2018 12:00:00 AM EDT [facility] ([facility]) Name Value Range Interpretation Code Description Data Margarita rce(s) Supporting Document(s ) ID Date Data Source [id number] 11/11/2018 12:00:00 AM EDT [facility] ([facility]) Name Value Range Interpretation Description Data Sup porting Code Source(s) Document(s ) Urine Final Normal (applies to [facility] (St Culture, report non-numeric [facility] Routine results) Medical, ) ID Date Data Source [id number] 11/11/2018 12:00:00 AM EDT [facility] ([facility]) Name Value Range Interpretation Description Data Sup porting Code Source(s) Document(s ) Hemoglobin 7.6 % Above high normal [facility] (St A1c/Hemoglobin. [facility] total in Blood Medical, ) Hemoglobin 8.0 % Above high normal [facility] (St A1c/Hemoglobin. [facility] total in Blood Medical, ) ID Date Data Source [id number] 11/11/2018 12:00:00 AM EDT [facility] ([facility]) Name Value Range Interpretation Description Data Sup porting Code Source(s) Document(s ) Thyroxine 8.3 ug/dL Normal (applies to [facility] (St (T4) non-numeric [facility] results) Medical, ) Free 2.7 Normal (applies to [facility] (St Thyroxine non-numeric [facility] Index results) [facility]) T3 Uptake 32 % Normal (applies to [facility] (St non-numeric [facility] results) [facility]) ID Date Data Source [id number] 11/11/2018 12:00:00 AM EDT [facility] ([facility], ) Name Value Range Interpretation Description Data Sup porting Code Source(s) Document(s ) UIBC 323 ug/dL Normal (applies to [facility] (St non-numeric [facility] results) [facility]) Iron 372 ug/dL Normal (applies to [facility] (St Bind.Cap.(TIBC non-numeric [facility] ) results) [facility]) Iron 49 ug/dL Normal (applies to [facility] (St [Mass/volume] non-numeric [facility] in Serum or results) [facility]) Plasma Iron 13 % Below low normal [facility] (St saturation [facility] [Mass [facility]) Fraction] in Serum or Plasma ID Date Data Source [id number] 11/11/2018 12:00:00 AM EDT [facility] ([facility], ) Name Value Range Interpretation Description Data Sup porting Code Source(s) Document(s ) Cholesterol 221 Above high normal [facility] (St [Mass/volume] in mg/dL [facility] Serum or Plasma [facility], ) HDL Cholesterol 26 mg/dL Below low normal [facility] ([facility], ) Triglyceride 378 Above high normal [facility] (S t [Mass/volume] in mg/dL [facility] Serum or Plasma [facility]) LDL Cholesterol 119 Above high normal [facility] (St Calc mg/dL [facility]) VLDL Cholesterol 76 mg/dL Above high normal MEDGE N (St [facility], ) Triglyceride 280 Above high normal [facility] (S t [Mass/volume] in mg/dL [facility] Serum or Plasma [facility]) Cholesterol 176 Normal (applies [facility] (St [Mass/volume] in mg/dL to non-numeric [facility] Serum or Plasma results) [facility]) HDL Cholesterol 26 mg/dL Below low normal [facility] ([facility], ) VLDL Cholesterol 56 mg/dL Above high normal MEDGE N ( [facility], ) LDL Cholesterol 94 mg/dL Normal (applies [facility] ( St Calc to non-numeric [facility] results) [facility], PC) ID Date Data Source [id number] 11/11/2018 12:00:00 AM EDT [facility] ([facility]) Name Value Range Interpretation Description Data Sup porting Code Source(s) Document(s ) WBC 0-5 Normal (applies [facility] (St to non-numeric [facility] results) Medical, PC) RBC 0-2 Normal (applies [facility] (St to non-numeric [facility] results) Medical, PC) Epithelial 0-10 Normal (applies [facility] (St Cells (non to non-numeric [facility] renal) results) Medical, PC) Mucus Threads Present Normal (applies [facility] (St to non-numeric [facility] results) Medical, PC) Bacteria Few Normal (applies [facility] (St [Presence] in to non-numeric [facility] Prostatic results) Medical, PC) fluid by Light microscopy WBC 0-5 Normal (applies [facility] (St to non-numeric [facility] results) Medical, PC) RBC None seen Normal (applies [facility] (St to non-numeric [facility] results) Medical, PC) Mucus Threads Present Normal (applies [facility] (St to non-numeric [facility] results) Medical, PC) Epithelial 0-10 Normal (applies [facility] (St Cells (non to non-numeric [facility] renal) results) Medical, PC) Bacteria None seen Normal (applies [facility] (St [Presence] in to non-numeric [facility] Prostatic results) Medical, PC) fluid by Light microscopy ID Date Data Source [id number] 11/11/2018 12:00:00 AM EDT [facility] ([facility]) Name Value Range Interpretation Description Data Sup porting Code Source(s) Document(s ) Specific gravity 1.029 Normal (applies [facility] (St of Pericardial to non-numeric [facility] fluid by results) Medical, Refractometry PC) pH of Lower 5.5 Normal (applies [facility] (St respiratory to non-numeric [facility] specimen results) Medical, PC) Urine-Color Yellow Normal (applies [facility] (St to non-numeric [facility] results) Medical, PC) Appearance of Turbid Abnormal [facility] (St Abdomen (applies to [facility] non-numeric Medical, results) PC) WBC Esterase Negative Normal (applies [facility] (St to non-numeric [facility] results) Medical, PC) Protein Abnormal [facility] (St [Mass/volume] in (applies to [facility] Lower non-numeric Medical, respiratory results) PC) specimen Glucose Negative Normal (applies [facility] (St [Mass/volume] in to non-numeric [facility] Urine collected results) Medical, for unspecified PC) duration Ketones Trace Abnormal [facility] (St [Presence] in (applies to [facility] Blood by Tablet non-numeric Medical, results) PC) Occult Blood Negative Normal (applies [facility] (St to non-numeric [facility] results) Medical, PC) Urobilinogen,Smita 1.0 mg/dL Normal (applies [facility] (St i-Qn to non-numeric [facility] results) Medical, PC) Bilirubin Negative Normal (applies [facility] (St [Presence] in to non-numeric [facility] Peritoneal fluid results) Medical, PC) Nitrite, Urine Negative Normal (applies [facility] (S t to non-numeric [facility] results) Medical, PC) Microscopic See below: Normal (applies [facility] (St Examination to non-numeric [facility] results) Medical, PC) Specific gravity 1.029 Normal (applies [facility] (St of Pericardial to non-numeric [facility] fluid by results) Medical, Refractometry PC) pH of Lower 7.5 Normal (applies [facility] (St respiratory to non-numeric [facility] specimen results) Medical, PC) Urine-Color Yellow Normal (applies [facility] (St to non-numeric [facility] results) Medical, PC) WBC Esterase Trace Abnormal [facility] (St (applies to [facility] non-numeric Medical, results) PC) Appearance of Clear Normal (applies [facility] (St Abdomen to non-numeric [facility] results) Medical, PC) Glucose Negative Normal (applies [facility] (St [Mass/volume] in to non-numeric [facility] Urine collected results) Medical, for unspecified PC) duration Protein Abnormal [facility] (St [Mass/volume] in (applies to [facility] Lower non-numeric Medical, respiratory results) PC) specimen Ketones Negative Normal (applies [facility] (St [Presence] in to non-numeric [facility] Blood by Tablet results) Medical, PC) Occult Blood Negative Normal (applies [facility] (St to non-numeric [facility] results) Medical, PC) Bilirubin Negative Normal (applies [facility] (St [Presence] in to non-numeric [facility] Peritoneal fluid results) Medical, ) Urobilinogen,Smita 1.0 mg/dL Normal (applies [facility] (St i-Qn to non-numeric [facility] results) Medical, PC) Nitrite, Urine Negative Normal (applies [facility] (S t to non-numeric [facility] results) Medical, PC) Microscopic See below: Normal (applies [facility] (St Examination to non-numeric [facility] results) Medical, PC) ID Date Data Source [id number] 11/11/2018 12:00:00 AM EDT [facility] ([facility]) Name Value Range Interpretation Description Data Sup porting Code Source(s) Document(s ) Glucose 141 Above high [facility] (St [Mass/volume] in mg/dL normal [facility] Urine collected for Medical, unspecified PC) duration Urea nitrogen 18 mg/dL Normal (applies [facility] (St [Mass/volume] in to non-numeric [facility] Serum or Plasma results) Medical, PC) Creatinine 0.73 Normal (applies [facility] (St [Interpretation] in mg/dL to non-numeric [facility] Urine results) Medical, ) eGFR If NonAfricn 96 Normal (applies [facility] (St Am mL/min/1 to non-numeric [facility] .73 results) Medical, PC) eGFR If Africn Am 110 Normal (applies [facility] (St mL/min/1 to non-numeric [facility] .73 results) Medical, PC) BUN/Creatinine 25 Above high [facility] (St Ratio normal [facility], PC) Potassium 4.3 Normal (applies [facility] (St [Mass/volume] in mmol/L to non-numeric [facility] Blood results) Medical, PC) Sodium 142 Normal (applies [facility] (St [Moles/volume] in mmol/L to non-numeric [facility] Serum or Plasma results) Medical, PC) Chloride 104 Normal (applies [facility] (St [Moles/volume] in mmol/L to non-numeric [facility] Serum or Plasma results) Medical, PC) Carbon dioxide, 25 Normal (applies [facility] ( St total mmol/L to non-numeric [facility] [Moles/volume] in results) Medical, Serum or Plasma PC) Protein 7.4 g/dL Normal (applies [facility] (St [Mass/volume] in to non-numeric [facility] Serum or Plasma results) Medical, ) Calcium 9.9 Normal (applies [facility] (St [Moles/volume] in mg/dL to non-numeric [facility] Urine collected for results) Medical, unspecified ) duration Microalbumin 4.3 g/dL Normal (applies [facility] (St [Mass/time] in to non-numeric [facility] Urine collected for results) Medical, unspecified ) duration Globulin, Total 3.1 g/dL Normal (applies [facility] ( St to non-numeric [facility] results) Medical, ) A/G Ratio 1.4 Normal (applies [facility] (St to non-numeric [facility] results) Medical, ) Alkaline 103 IU/L Normal (applies [facility] (St phosphatase to non-numeric [facility] [Enzymatic results) Medical, activity/volume] in ) Serum, Plasma or Blood Bilirubin.total 0.4 Normal (applies [facility] ( St [Mass/volume] in mg/dL to non-numeric [facility] Serum or Plasma results) Medical, ) Alanine 12 IU/L Normal (applies [facility] (St aminotransferase to non-numeric [facility] [Enzymatic results) Medical, activity/volume] in PC) Serum or Plasma Aspartate 15 IU/L Normal (applies [facility] (St aminotransferase to non-numeric [facility] [Enzymatic results) Medical, activity/volume] in PC) Serum or Plasma ID Date Data Source [id number] 11/11/2018 12:00:00 AM EDT [facility] ([facility], ) Name Value Range Interpretation Description Data Sup porting Code Source(s) Document(s ) Leukocytes 7.7 Normal (applies [facility] (St [#/volume] in x10E3/uL to non-numeric [facility] Blood by results) Medical, ) Automated count Erythrocytes 4.60 Normal (applies [facility] (St [#/volume] in x10E6/uL to non-numeric [facility] Blood by results) Medical, ) Automated count Hematocrit 38.8 % Normal (applies [facility] (St [Volume to non-numeric [facility] Fraction] of results) Medical, ) Blood by Automated count Hemoglobin 12.9 Normal (applies [facility] (St [Mass/volume] in g/dL to non-numeric [facility] Blood results) Medical, ) MCV 84 fL Normal (applies [facility] (St to non-numeric [facility] results) Medical, ) MCH 28.0 pg Normal (applies [facility] (St to non-numeric [facility] results) [facility], ) MCHC 33.2 Normal (applies [facility] (St g/dL to non-numeric [facility] results) [facility], ) RDW 14.8 % Normal (applies [facility] (St to non-numeric [facility] results) [facility], ) Platelets 195 Normal (applies [facility] (St [#/area] in x10E3/uL to non-numeric [facility] Blood by results) [facility], ) Microscopy high power field Neutrophils [#] 63 % Normal (applies [facility] ( St in Body fluid by to non-numeric [facility] Manual count results) [facility], ) Lymphs 29 % Normal (applies [facility] (St to non-numeric [facility] results) [facility], ) Monocytes 7 % Normal (applies [facility] (St [#/volume] in to non-numeric [facility] Cord blood results) [facility], ) Eos 1 % Normal (applies [facility] (St to non-numeric [facility] results) [facility], ) Neutrophils 4.8 Normal (applies [facility] (St (Absolute) x10E3/uL to non-numeric [facility] results) [facility], ) Basos 0 % Normal (applies [facility] (St to non-numeric [facility] results) [facility], ) Lymphs 2.2 Normal (applies [facility] (St (Absolute) x10E3/uL to non-numeric [facility] results) [facility], ) Monocytes(Absolu 0.5 Normal (applies [facility] (St te) x10E3/uL to non-numeric [facility] results) [facility], ) Eos (Absolute) 0.1 Normal (applies [facility] (S t x10E3/uL to non-numeric [facility] results) [facility], ) Baso (Absolute) 0.0 Normal (applies [facility] ( St x10E3/uL to non-numeric [facility] results) [facility], ) Immature Grans 0.0 Normal (applies [facility] (S t (Abs) x10E3/uL to non-numeric [facility] results) [facility], ) Immature 0 % Normal (applies [facility] (St Granulocytes to non-numeric [facility] results) [facility], ) ID Date Data Source [id number] 11/11/2018 12:00:00 AM EDT [facility] ([facility]) Name Value Range Interpretation Code Description Data Margarita rce(s) Supporting Document(s ) ID Date Data Source [id number] 11/11/2018 12:00:00 AM EDT [facility] ([facility]) Name Value Range Interpretation Code Description Data Margarita rce(s) Supporting Document(s ) PDF Image . Normal (applies to [facility] (St non-numeric results) [facility], [facility]) ID Date Data Source [id number] 11/11/2018 12:00:00 AM EDT [facility] ([facility]) Name Value Range Interpretation Code Description Data Margarita rce(s) Supporting Document(s ) Result 1 Normal (applies to [facility] (St non-numeric results) [facility], [facility]) ID Date Data Source [id number] 11/11/2018 12:00:00 AM EDT [facility] ([facility]) Name Value Range Interpretation Description Data Sup porting Code Source(s) Document(s ) Urine Final Normal (applies to [facility] (St Culture, report non-numeric [facility] Routine results) Medical, PC) ID Date Data Source [id number] 11/11/2018 12:00:00 AM EDT [facility] ([facility]) Name Value Range Interpretation Description Data Sup porting Code Source(s) Document(s ) Hemoglobin 8.0 % Above high normal [facility] (St A1c/Hemoglobin. [facility] total in Blood Medical, PC) ID Date Data Source [id number] 11/11/2018 12:00:00 AM EDT [facility] ([facility]) Name Value Range Interpretation Description Data Sup porting Code Source(s) Document(s ) Thyroxine 8.3 ug/dL Normal (applies to [facility] (St (T4) non-numeric [facility] results) Medical, PC) T3 Uptake 32 % Normal (applies to [facility] (St non-numeric [facility] results) Medical, PC) Free 2.7 Normal (applies to [facility] (St Thyroxine non-numeric [facility] Index results) Medical, PC) Procedure Social History Code Duration Value Status Description Data Source(s ) Smoking 11/24/2019 lives with completed lives with mother, [facility] (St 12:00:00 AM EDT mother, has a has a fiancee, no [facility], fiancee, no children PC) children Smoking 11/24/2019 Unknown if ever completed Unknown if ever MEDG EN (St 12:00:00 AM EDT smoked smoked [facility], PC) Smoking 09/20/2019 lives with completed lives with mother, [facility] (St 12:00:00 AM EDT mother, has a has a fiancee, no [facility], fiancee, no children PC) children Smoking 09/20/2019 Unknown if ever completed Unknown if ever MEDG EN (St 12:00:00 AM EDT smoked smoked [facility], PC) Smoking 09/20/2019 lives with completed lives with mother, [facility] (St 12:00:00 AM EDT mother, has a has a fiancee, no [facility], fiancee, no children PC) children Smoking 09/20/2019 Unknown if ever completed Unknown if ever MEDG EN (St 12:00:00 AM EDT smoked smoked [facility], PC) Smoking 08/10/2019 lives with completed lives with mother, [facility] (St 12:00:00 AM EDT mother, has a has a fiancee, no [facility], fiancee, no children PC) children Smoking 08/10/2019 Unknown if ever completed Unknown if ever MEDG EN (St 12:00:00 AM EDT smoked smoked [facility], PC) Smoking 11/15/2018 Daily Smoker completed Daily Smoker [facility] 05:13:00 PM EDT Medical C enter Vital Signs ID Date Data Source [id number] Name Value Range Interpretation Code Description Data Source(s) Heart rate 70 /min 70 /min [facility] ([place] , ) Respiratory rate 12 /min 12 /min [facility] ( [facility] , ) Body temperature 97.9 F 97.9 F [facility] ( [place] , ) Inhaled oxygen 96 % 96 % MEDGEN (St concentration [facility], ) Diastolic blood 85 mm[Hg] 85 mm[Hg] MEDGEN (S t pressure [facility] , ) Systolic blood 138 mm[Hg] 138 mm[Hg] MEDGEN (St pressure [facility] , ) Heart rate 71 /min 71 /min [facility] ([facility] , ) Respiratory rate 14 /min 14 /min [facility] ( [facility] , ) Inhaled oxygen 100 % 100 % [facility] ([facility] Diastolic blood 102 mm[Hg] 102 mm[Hg] [facility] (S t pressure [facility] , ) Systolic blood 142 mm[Hg] 142 mm[Hg] [facility] (St pressure [facility] , ) Heart rate 71 /min 71 /min [facility] ([facility] , ) Respiratory rate 14 /min 14 /min [facility] ( [facility] , ) Inhaled oxygen 100 % 100 % [facility] ([facility] concentration [facility] ) Diastolic blood 102 mm[Hg] 102 mm[Hg] [facility] (S t pressure [facility] , ) Systolic blood 142 mm[Hg] 142 mm[Hg] MED[facility] (St [facility] , ) Heart rate 71 /min 71 /min [facility] ([facility] , ) Respiratory rate 14 /min 14 /min [facility] ( [facility] , ) Inhaled oxygen 100 % 100 % [facility] ( concentration [facility], ) Diastolic blood 102 mm[Hg] 102 mm[Hg] [facility] (S t pressure [facility] , ) Systolic blood 142 mm[Hg] 142 mm[Hg] [facility] ([facility] , ) Heart rate 77 /min 77 /min [facility] ([facility] , ) Respiratory rate 12 /min 12 /min [facility] ( [facility] , ) Body temperature 98 F 98 F [facility] ( [facility] , ) Inhaled oxygen 98 % 98 % [facility] (St concentration [facility], ) Diastolic blood 118 mm[Hg] 118 mm[Hg] [facility] (S t pressure [facility] , ) Systolic blood 207 mm[Hg] 207 mm[Hg] [facility] ([facility] , ) Body weight 178 lb 178 lb [facility] ([facility] , ) Heart rate 77 /min 77 /min [facility] ([facility] , ) Respiratory rate 12 /min 12 /min [facility] ( [facility] , ) Body temperature 98 F 98 F [facility] ( [facility] , ) Inhaled oxygen 98 % 98 % [facility] (St concentration [facility], ) Diastolic blood 118 mm[Hg] 118 mm[Hg] MED[facility] (S t pressure [facility] , ) Systolic blood 207 mm[Hg] 207 mm[Hg] MED[facility] ([facility] , ) Body weight 178 lb 178 lb MEDGEN ([facility] , ) Heart rate 77 /min 77 /min [facility] ([facility] , ) Respiratory rate 12 /min 12 /min [facility] ( [facility] , ) Body temperature 98 F 98 F MEDGEN ( [facility] , ) Inhaled oxygen 98 % 98 % MEDGEN ([facility], ) Diastolic blood 118 mm[Hg] 118 mm[Hg] MEDGEN (S t pressure [facility] , ) Systolic blood 207 mm[Hg] 207 mm[Hg] MEDGEN ([facility] , ) Body weight 178 lb 178 lb MEDGEN ([facility] , ) Heart rate 77 /min 77 /min MEDGEN ([facility] , ) Respiratory rate 12 /min 12 /min MEDGEN ( [facility] , ) Body temperature 98 F 98 F MEDGEN ( [place] , ) Inhaled oxygen 98 % 98 % MEDGEN ([facility], ) Diastolic blood 118 mm[Hg] 118 mm[Hg] MEDGEN (S t pressure [facility] , ) Systolic blood 207 mm[Hg] 207 mm[Hg] MEDGEN ([facility] , ) Body weight 178 lb 178 lb MEDGEN ([facility] , ) Heart rate 75 /min 75 /min MEDGEN ([facility] , ) Respiratory rate 15 /min 15 /min MEDGEN ( [facility] , ) Body temperature 98.1 F 98.1 F MEDGEN ( [facility] , ) Inhaled oxygen 98 % 98 % MEDGEN ([facility], ) Diastolic blood 90 mm[Hg] 90 mm[Hg] MEDGEN (S t pressure [facility] , ) Systolic blood 140 mm[Hg] 140 mm[Hg] MEDGEN ([facility] , ) Body height 62 in 62 in MEDGEN ([facility] , ) Heart rate 75 /min 75 /min MEDGEN ([facility] , ) Respiratory rate 15 /min 15 /min MEDGEN ( [facility] , ) Body temperature 98.1 F 98.1 F MEDGEN ( [facility] , ) Inhaled oxygen 98 % 98 % MEDGEN ([facility], ) Diastolic blood 90 mm[Hg] 90 mm[Hg] MEDGEN (S t pressure [facility] , ) Systolic blood 140 mm[Hg] 140 mm[Hg] MEDGEN ([facility] , ) Body height 62 in 62 in [facility] [place] Heart rate 75 /min 75 /min MEDGEN ([facility] , ) Respiratory rate 15 /min 15 /min MEDGEN ( [facility] , ) Body temperature 98.1 F 98.1 F MEDGEN ( [facility] , ) Inhaled oxygen 98 % 98 % MEDGEN ([facility], ) Diastolic blood 90 mm[Hg] 90 mm[Hg] MEDGEN (S t [facility] , ) Systolic blood 140 mm[Hg] 140 mm[Hg] MEDGEN ([facility] , ) Body height 62 in 62 in MEDGEN ([facility] , ) Heart rate 75 /min 75 /min MEDGEN ([facility] , ) Respiratory rate 15 /min 15 /min MEDGEN ( [facility] , ) Body temperature 98.1 F 98.1 F MEDGEN ( [facility] , ) Inhaled oxygen 98 % 98 % MEDGEN ([facility], ) Diastolic blood 90 mm[Hg] 90 mm[Hg] MEDGEN (S t pressure [facility] , ) Systolic blood 140 mm[Hg] 140 mm[Hg] MEDGEN ([facility] , ) Body height 62 in 62 in MEDGEN ([facility] , ) Heart rate 62 /min 62 /min MEDGEN ([facility] , ) Respiratory rate 15 /min 15 /min MEDGEN ( [facility] , ) Inhaled oxygen 99 % 99 % MEDGEN ([facility], ) Diastolic blood 100 mm[Hg] 100 mm[Hg] MEDGEN (S t pressure [facility] , ) Systolic blood 160 mm[Hg] 160 mm[Hg] MEDGEN ([facility] , ) Body weight 174 lb 174 lb [facility] [place] Heart rate 62 /min 62 /min MEDGEN ([facility] , ) Respiratory rate 15 /min 15 /min MEDGEN ( [facility] , ) Inhaled oxygen 99 % 99 % MEDGEN ([facility], ) Diastolic blood 100 mm[Hg] 100 mm[Hg] MEDGEN (S t pressure [facility] , ) Systolic blood 160 mm[Hg] 160 mm[Hg] MEDGEN ([facility] , ) Body weight 174 lb 174 lb [facility] [place] Heart rate 62 /min 62 /min MEDGEN ([facility] , ) Respiratory rate 15 /min 15 /min MEDGEN ( [facility] , ) Inhaled oxygen 99 % 99 % MEDGEN ([facility], ) Diastolic blood 100 mm[Hg] 100 mm[Hg] MEDGEN (S t pressure [facility] , ) Systolic blood 160 mm[Hg] 160 mm[Hg] MEDGEN ([facility] , ) Body weight 174 lb 174 lb [facility] Heart rate 62 /min 62 /min MEDGEN ([facility] , ) Respiratory rate 15 /min 15 /min MEDGEN ( [facility] , ) Inhaled oxygen 99 % 99 % MEDGEN ([facility], ) Diastolic blood 100 mm[Hg] 100 mm[Hg] MEDGEN (S t pressure [facility] , ) Systolic blood 160 mm[Hg] 160 mm[Hg] MEDGEN ([facility] , ) Body weight 174 lb 174 lb MEDGEN ([facility] , ) Heart rate 79 /min 79 /min MEDGEN ([facility] , ) Respiratory rate 15 /min 15 /min MEDGEN ( [facility] , ) Body temperature 98 F 98 F [facility] ( [facility] Inhaled oxygen 96 % 96 % [facility] ([facility] [place] Diastolic blood 90 mm[Hg] 90 mm[Hg] MEDGEN (S t [facility] , ) Systolic blood 160 mm[Hg] 160 mm[Hg] MEDGEN ([facility] , ) Body weight 174 lb 174 lb MEDGEN ([place] , ) Heart rate 79 /min 79 /min MEDGEN ([facility] , ) Respiratory rate 15 /min 15 /min MEDGEN ( [facility] , ) Body temperature 98 F 98 F MEDGEN ( [facility] , ) Inhaled oxygen 96 % 96 % MEDGEN ([facility], ) Diastolic blood 90 mm[Hg] 90 mm[Hg] MEDGEN (S t pressure [facility] , ) Systolic blood 160 mm[Hg] 160 mm[Hg] MEDGEN ([facility] , ) Body weight 174 lb 174 lb MEDGEN ([facility] , ) Heart rate 79 /min 79 /min MEDGEN ([facility] , ) Respiratory rate 15 /min 15 /min MEDGEN ( [facility] , ) Body temperature 98 F 98 F MEDGEN ( [facility] , ) Inhaled oxygen 96 % 96 % MEDGEN ([facility] [place] Diastolic blood 90 mm[Hg] 90 mm[Hg] MEDGEN (S t pressure [facility] , ) Systolic blood 160 mm[Hg] 160 mm[Hg] MEDGEN (St [facility] , ) Body weight 174 lb 174 lb MEDGEN ([facility] , ) Heart rate 79 /min 79 /min MEDGEN ([facility] , ) Respiratory rate 15 /min 15 /min MEDGEN ( [facility] , ) Body temperature 98 F 98 F MEDGEN ( [facility] , ) Inhaled oxygen 96 % 96 % MEDGEN ( [facility] [place] Diastolic blood 90 mm[Hg] 90 mm[Hg] MEDGEN (S t pressure [facility] , ) Systolic blood 160 mm[Hg] 160 mm[Hg] MEDGEN (St [facility] , ) Body weight 174 lb 174 lb MEDGEN ([facility] , ) Heart rate 70 /min 70 /min MEDGEN ([facility] , ) Respiratory rate 12 /min 12 /min MEDGEN ( [facility] , ) Body temperature 98 F 98 F [facility] ( [facility] Diastolic blood 90 mm[Hg] 90 mm[Hg] MEDGEN (S t pressure [facility] , ) Systolic blood 160 mm[Hg] 160 mm[Hg] MEDGEN ([facility] , ) Body weight 174 lb 174 lb [facility] ([facility] Heart rate 70 /min 70 /min [facility] ([facility] Respiratory rate 12 /min 12 /min MEDGEN ( [facility] , ) Body temperature 98 F 98 F [facility] ( [facility] Diastolic blood 90 mm[Hg] 90 mm[Hg] MEDGEN (S t pressure [facility] , ) Systolic blood 160 mm[Hg] 160 mm[Hg] MEDGEN ([facility] , ) Body weight 174 lb 174 lb MEDGEN ([facility] , ) Heart rate 70 /min 70 /min MEDGEN ([facility]) Respiratory rate 12 /min 12 /min MEDGEN ( [facility] , ) Body temperature 98 F 98 F [facility] ( [facility] Diastolic blood 90 mm[Hg] 90 mm[Hg] MEDGEN (S t pressure [facility] , ) Systolic blood 160 mm[Hg] 160 mm[Hg] MEDGEN ([facility] , ) Body weight 174 lb 174 lb MEDGEN ([facility]) Body weight 174 lb 174 lb [facility] ([facility] Heart rate 70 /min 70 /min [facility] ([facility] Respiratory rate 12 /min 12 /min MEDGEN ( [facility] , ) Body temperature 98 F 98 F [facility] ( [facility] Diastolic blood 90 mm[Hg] 90 mm[Hg] MEDGEN (S t pressure [facility] , ) Systolic blood 160 mm[Hg] 160 mm[Hg] MEDGEN ([facility] , ) Body temperature [id number] 36.996604 [facility] Respiratory rate 18 /min 18 /min [facility] Oxygen saturation 100 % 100 % [facility] by Pulse oximetry Heart rate 61 /min 61 /min [facility] Diastolic blood 78 mm[Hg] 78 mm[Hg] [facility] Systolic blood 136 mm[Hg] 136 mm[Hg] [facility] Heart rate 68 /min 68 /min MEDGEN ([facility] , ) Respiratory rate 12 /min 12 /min MEDGEN ( [facility] , ) Body temperature 98 F 98 F MEDGEN ( [facility] , ) Diastolic blood 90 mm[Hg] 90 mm[Hg] MEDGEN (S t pressure [facility] , ) Systolic blood 160 mm[Hg] 160 mm[Hg] MEDGEN ([facility] , ) Heart rate 68 /min 68 /min MEDGEN ([facility] , ) Respiratory rate 12 /min 12 /min MEDGEN ( [facility] , ) Body temperature 98 F 98 F MEDGEN ( [facility] , ) Diastolic blood 90 mm[Hg] 90 mm[Hg] MEDGEN (S t pressure [facility] , ) Systolic blood 160 mm[Hg] 160 mm[Hg] MEDGEN (St [facility] , ) Heart rate 68 /min 68 /min MEDGEN ([facility] , ) Respiratory rate 12 /min 12 /min MEDGEN ( [facility] , ) Body temperature 98 F 98 F MEDGEN ( [facility] , ) Diastolic blood 90 mm[Hg] 90 mm[Hg] MEDGEN (S t pressure [facility] , ) Systolic blood 160 mm[Hg] 160 mm[Hg] MEDGEN ([facility] , ) Heart rate 68 /min 68 /min MEDGEN ([facility] , ) Respiratory rate 12 /min 12 /min MEDGEN ( [facility] , ) Body temperature 98 F 98 F MEDGEN ( [facility] , ) Diastolic blood 90 mm[Hg] 90 mm[Hg] MEDGEN (S t pressure [facility] , ) Systolic blood 160 mm[Hg] 160 mm[Hg] MEDGEN (St [facility] , ) Patient Treatment Plan of Care Planned Activity Planned Date Details Description Data Source (s) Metformin hydrochloride 01/25/2019 12:00:00 [facility] ([facility] 500 [facility] Oral Tablet AM [facility]) Simvastatin 20 MG Oral 01/16/2019 12:00:00 N[facility] ([facility]) Omeprazole 20 MG Delayed 01/16/2019 12:00:00 [facility] ([facility] Release Oral Capsule [facility]) Trazodone Hydrochloride 11/26/2018 12:00:00 [facility] ([facility] 100 MG Oral Tablet AM [facility]) Omeprazole 20 MG Delayed 11/26/2018 12:00:00 NEXT[facility] ([facility] Release Oral Capsule [facility]) Simvastatin 20 MG Oral 11/26/2018 12:00:00 NEXTGEN ([facility] Table[facility]) Metformin hydrochloride 11/09/2018 12:00:00 NEXT[facility] ([facility] 500 MG Oral Tablet AM [facility]) Enalapril Maleate 20 MG 10/08/2018 12:00:00 N[facility] ([facility] Oral Tablet [facility]) Simvastatin 20 MG Oral 10/08/2018 12:00:00 [facility] ([facility]) Omeprazole 20 MG Delayed 10/08/2018 12:00:00 [facility] Release Oral Capsule [facility]) Metformin hydrochloride 09/18/2018 12:00:00 NEXT[facility] ([facility] 500 MG Oral Tablet AM [facility]) Omeprazole 20 MG Delayed 09/15/2018 12:00:00 NEXT[facility] ([facility] Release Oral Capsule [facility]) Simvastatin 20 MG Oral 09/14/2018 12:00:00 NEXTGEN ([facility]) Enalapril Maleate 20 MG 08/21/2018 12:00:00 NEXT[facility] ([facility] Oral Tablet [facility]) Trazodone Hydrochloride 07/06/2018 12:00:00 NEXTGEN ([facility] 100 MG Oral Tablet [facility])
[2019-11-25 15:38] LABS: BASO % 0.8 % (0-2.0); EOS % 0.7 % (0-4.5); HEMATOCRIT 37.2 % (32.4-45.2); HEMOGLOBIN 12.5 GM/dL (10.7-15.3); LYMPH % 21.9 % (8-40); MCHC 33.7 g/dl (32.0-36.0); MEAN CELL VOLUME 86.1 fl (80-96); MEAN PLT VOLUME 9.8 fl (7.5-11.1); MONO % 6.6 % (3.8-10.2); PLATELET COUNT 191 K/MM3 (134-434); RBC 4.32 M/mm3 (3.60-5.2); RDW 14.6 % (11.6-15.6)
[2019-11-25] MEDS ORDERED: ONDANSETRON 4 MG/2 ML VIAL IVPUSH ONE (15:40)
[2019-11-25 15:46] LABS: EPI CELLS 14 /uL (0-25.1); HYALINE CASTS 0 /uL (0-3.1); URINE APPEARANCE CLEAR; URINE BACTERIA 322 /uL (0-1359); URINE BILIRUBIN NEGATIVE (NEGATIVE); URINE COLOR YELLOW; URINE GLUCOSE (UA) NEGATIVE (NEGATIVE); URINE KETONE NEGATIVE (NEGATIVE); URINE LEUK ESTERASE NEGATIVE (NEGATIVE); URINE NITRITE NEGATIVE (NEGATIVE); URINE PROTEIN 1+ (NEGATIVE); URINE RBC 3 /uL (0-23.9); URINE UROBILINOGEN 0.2 mg/dL (0.2-1.0); URINE WBC 11 /uL (0-25.8)
--- NOTE | 2019-11-25 15:49 | PDOC ---
Documentation entered by Jacqui Topete SCRIBE, acting as scribe for Jin Max MD. Jin Max MD: This documentation has been prepared by the Yoselyn galarza Xhesika, SCRIBE, under my direction and personally reviewed by me in its entirety. I confirm that the documentation accurately reflects all work, treatment, procedures, and medical decision making performed by me. Attending Attestation - Resident Resident Name: Shemar Norris - ED Attending Attestation I have performed the following: I have examined & evaluated the patient, The case was reviewed & discussed with the resident, I agree w/resident's findings & plan, Exceptions are as noted - HPI HPI: 11/25/19 14:31 The patient is a 54 year old female, with a significant PMH of HTN, HLD, anxiety, and osteopenia, who presents to the ED for evaluation of epigastric abdominal pain [id number]. Pt describes her pain as sharp, constant,radiating to her LUQ quadrant and up to her throat, alleviated when walking and worse when lying down. Pt reports her symptoms are associated with nausea and 2 or 3 episodes of yellow emesis daily for the past 2 weeks. Pt states she has a metallic taste in her mouth. Pt notes the pain seems worse with intake of solid foods, but she is able to tolerate foluids for a short amount of time before vomiting. The patient denies chest pain, shortness of breath, headache and dizziness. Denies fever, chills, cough, diarrhea and constipation. Denies dysuria, frequency, urgency and hematuria. Allergies: NKDA PCP: Dr. Monge - Physicial Exam PE: 11/25/19 15:44 GENERAL: The patient is awake, alert, and fully oriented, Nontoxic - in no acute distress. HEAD: Normocephalic, atraumatic. EYES: extraocular movements intact, sclera anicteric, conjunctiva clear. ENT: Normal voice, Moist mucous membranes. NECK: Normal range of motion, supple LUNGS: Breath sounds equal, clear to auscultation bilaterally. No wheezes, no rhonchi, no rales. HEART: Regular rate and rhythm, normal S1 and S2 without murmur, rub or gallop. ABDOMEN: Soft, nontender, No guarding, no rebound. No CVA tenderness, Well- healed keloid scar in the mid abdomen EXTREMITIES: Normal range of motion, no edema. NEUROLOGICAL: No facial assymetry, Normal speech, PSYCH: Normal mood, normal affect. SKIN: Warm, Dry, normal turgor, - Medical Decision Making 11/25/19 15:45 54-year-old presenting with 2 weeks of constant sharp Nonradiating epigastric pain worsens when she eats and lays down, no exertional symptoms, Shortness of breath, chest pain. On exam patient is well-appearing, no distress, abdomen is soft nontender Differential for the patient's symptoms includes possible gastritis, pancreatitis, consider gallbladder pathology Will obtain blood work, right upper quadrant ultrasound Will give Pepcid and Maalox Will reassess 11/25/19 16:45 signed out to evening team to fu and disp pt Heart Score/ECG Review - ECG Impressions Comment:: 11/25/19 15:46 Twelve-lead EKG was performed and reviewed by me. There is normal sinus rhythm with a normal rate. rate of 71 The axis is normal. The intervals are normal. There are no ST or T wave abnormalities. Discharge - Discharge Information Problems reviewed: Yes Clinical Impression/Diagnosis: Abdominal pain Qualifiers: Abdominal location: upper abdomen, unspecified Qualified Code(s): R10.10 - Upper abdominal pain, unspecified Condition: Improved Disposition: HOME - Additional Discharge Information Prescriptions: Ondansetron HCl [Zofran] 4 mg SL TID PRN #9 tablet PRN Reason: Nausea - Follow up/Referral Referrals: Juan Francisco Johnson MD [Staff Physician] - Jose Monge MD [Primary Care Provider] - - Patient Discharge Instructions Patient Printed Discharge Instructions: Gastroesophageal Reflux Disease ([facility] [employer] [facility]), Peptic Ulcer, Acute Abdominal Pain Additional Instructions: You came to the ED for abdominal pain. This is most likely due to a peptic ulcer or Gastric reflux. At the ED we gave you pepcid, maalox, viscous lidocaine, and zofran. We also sam labs and imaging which were all normal. Please follow up with your PCP within one week. Please continue to take your prescribed omeprazole as prescribed, which is take one 20mg tablet 30 minutes before dinner everyday. I also prescribed you zofran which you should take one tablet every 8 hours when needed. Please call GI Dr. Elliott to set up an appointment within one week. Please also call your PCP to set up a follow up appointment within one week. If you have any of the following please return: - worsening abdominal pain - unable to eat anything by mouth - uncontrollable vomiting. If you have any emergent symptoms please call for medical help right away. - Post Discharge Activity
[2019-11-25 16:12] LABS: ALBUMIN 3.5 g/dl (3.4-5.0); ALK PHOS 104 U/L (45-117); ANION GAP 7 MMOL/L (8-16); BILIRUBIN,TOTAL 0.5 mg/dL (0.2-1); BLOOD UREA NITROGEN 14.1 mg/dL (7-18); CALCIUM 8.8 mg/dL (8.5-10.1); CHLORIDE 108 mmol/L (98-107); CO2 26 mmol/L (21-32); CREATININE 0.8 mg/dL (0.55-1.3); GLUCOSE,RANDOM 128 mg/dL (74-106); POTASSIUM 4.3 mmol/L (3.5-5.1); SGOT/AST 12 U/L (15-37); SGPT/ALT 22 U/L (13-61); SODIUM 141 mmol/L (136-145); TOT PROT 7.7 g/dl (6.4-8.2)
--- NOTE | 2019-11-26 10:36 | EKG ---
Test Reason : Blood Pressure : / mmHG Vent. Rate : 071 BPM Atrial Rate : 071 BPM P-R Int : 146 ms QRS Dur : 078 ms QT Int : 362 ms P-R-T Axes : 029 029 041 degrees QTc Int : 393 ms NORMAL SINUS RHYTHM SEPTAL INFARCT , AGE UNDETERMINED NONSPECIFIC T WAVE ABNORMALITY ABNORMAL ECG WHEN COMPARED WITH ECG OF 11-AUG-2019 12:45, NO SIGNIFICANT CHANGE WAS FOUND Confirmed by DESTINEY SAM MD ([id number]) on 11/26/2019 10:35:59 AM Referred By: Confirmed By:DESTINEY SAM MD
== END 2019-11-25 18:25 | disposition home or self-care (01) ==
LOC: JER 13:52
PROC: 3E033GC Introduction of Other Therapeutic Substance into Peripheral Vein, Percutaneous Approach (ICD-10-PCS; principal; 2019-11-25)
DX: R10.10 Upper abdominal pain, unspecified (principal)
CPT/HCPCS: 36415; 71045-TC-FY; 76705-TC; 80053; 81003; 82550; 83690; 84484; 85025; 87086; 93005; 93010; 99285-25

== ENCOUNTER 2020-07-13 07:05 | Observation (INO) | payer OTHER ==
[2020-07-13 07:28] VITALS: BMI 27.4
[2020-07-13] MEDS ORDERED: FAMOTIDINE 20 MG/50 ML IVPB 20 MG/50 ML MG IVPB ONE ×2 (07:36→07:44)
[2020-07-13] MEDS ORDERED: MAG HYDROX/AL HYDROX/SIMETH -MYLANTA- ORAL SUSPENSION PO ONE (07:36)
[2020-07-13] MEDS ORDERED: ACETAMINOPHEN INJECTION 100 ML IVPB ONE (07:43)
[2020-07-13] MEDS ORDERED: MAG HYDROX/AL HYDROX/SIMETH 30 ML UNIT-DOSE CUP ONE (07:44)
[2020-07-13] MEDS: ACETAMINOPHEN 1000 MG/100 ML VIAL (NON FORMULARY) IVPB ONE ×2 (08:02→18:55)
[2020-07-13 08:12] LABS: BASO % 2.5 % (0-2.0); HEMATOCRIT 38.1 % (32.4-45.2); HEMOGLOBIN 12.8 GM/dL (10.7-15.3); LYMPH % 21.2 % (8-40); MCH 28.2 pg (25.7-33.7); MCHC 33.8 g/dl (32.0-36.0); MEAN CELL VOLUME 83.6 fl (80-96); MEAN PLT VOLUME 10.2 fl (7.5-11.1); MONO % 6.1 % (3.8-10.2); NEUT % 69.2 % (42.8-82.8); PLATELET COUNT 183 K/MM3 (134-434); RBC 4.55 M/mm3 (3.60-5.2); RDW 14.2 % (11.6-15.6); WHITE BLOOD COUNT 8.6 K/mm3 (4.0-10.0)
[2020-07-13 08:24] LABS: INR 1.05 (0.83-1.09); PROTHROMBIN TIME (PATIENT) 12.7 SEC (9.7-13.0)
[2020-07-13 08:26] LABS: ALBUMIN 3.5 g/dl (3.4-5.0); BLOOD UREA NITROGEN 15.9 mg/dL (7-18); CALCIUM 9.2 mg/dL (8.5-10.1)
[2020-07-13 08:29] LABS: CREATININE 0.7 mg/dL (0.55-1.3)
[2020-07-13 08:30] LABS: BILIRUBIN,TOTAL 0.8 mg/dL (0.2-1); TOT PROT 7.6 g/dl (6.4-8.2)
[2020-07-13 09:53] LABS: EPI CELLS >36 /uL (0-25.1); HYALINE CASTS 1 /uL (0-3.1); URINE APPEARANCE CLEAR; URINE BACTERIA 8389 /uL (0-1359); URINE BILIRUBIN NEGATIVE (NEGATIVE); URINE COLOR YELLOW; URINE GLUCOSE (UA) NEGATIVE (NEGATIVE); URINE KETONE NEGATIVE (NEGATIVE); URINE LEUK ESTERASE NEGATIVE (NEGATIVE); URINE NITRITE NEGATIVE (NEGATIVE); URINE PROTEIN 2+ (NEGATIVE); URINE RBC 11 /uL (0-23.9); URINE WBC 19 /uL (0-25.8)
[2020-07-13] MEDS: ENOXAPARIN NA (PORCINE) 40 MG/0.4 ML DISP.SYRIN SQ SCH (12:16)
[2020-07-13] MEDS ORDERED: ACETAMINOPHEN 1000 MG/100 ML VIAL (NON FORMULARY) IVPB PRN (13:45)
[2020-07-13] MEDS: GABAPENTIN 400 MG CAPSULE PO SCH ×2 (15:00→22:51)
[2020-07-13] MEDS: INSULIN SLIDING SCALE (NOVOLOG) 1 VIAL SQ SCH ×2 (16:14→22:52)
[2020-07-13] MEDS ORDERED: amLODIPine BESYLATE 5 MG TABLET (FP) PO SCH ×2 (18:59→22:28)
[2020-07-13] MEDS ORDERED: ACETAMINOPHEN 325 MG TABLET (FP) PO ONE (18:59)
[2020-07-13] MEDS ORDERED: ATORVASTATIN CA 40 MG TABLET (FP) PO SCH (22:00)
[2020-07-13] MEDS ORDERED: FAMOTIDINE 20 MG TABLET PO ONE (22:15)
[2020-07-13] MEDS ORDERED: ENALAPRIL MALEATE 10 MG TABLET PO SCH (22:29)
[2020-07-13] MEDS: SIMETHICONE 80 MG TAB.CHEW (FP) PO PRN (22:52)
[2020-07-13] MEDS: ENALAPRIL MALEATE 10 MG TABLET PO SCH (22:52)
[2020-07-13] MEDS: amLODIPine BESYLATE 5 MG TABLET (FP) PO SCH (22:52)
[2020-07-14] MEDS: INSULIN SLIDING SCALE (NOVOLOG) 1 VIAL SQ SCH ×2 (06:27→11:53)
[2020-07-14] MEDS: GABAPENTIN 400 MG CAPSULE PO SCH (06:28)
[2020-07-14 07:28] LABS: BASO % 0.8 % (0-2.0); EOS % 1.6 % (0-4.5); HEMATOCRIT 38.2 % (32.4-45.2); HEMOGLOBIN 12.8 GM/dL (10.7-15.3); LYMPH % 34.8 % (8-40); MCH 28.7 pg (25.7-33.7); MCHC 33.6 g/dl (32.0-36.0); MEAN CELL VOLUME 85.4 fl (80-96); MEAN PLT VOLUME 11.1 fl (7.5-11.1); MONO % 8.4 % (3.8-10.2); NEUT % 54.4 % (42.8-82.8); PLATELET COUNT 184 K/MM3 (134-434); RBC 4.47 M/mm3 (3.60-5.2); RDW 14.3 % (11.6-15.6); WHITE BLOOD COUNT 7.8 K/mm3 (4.0-10.0)
[2020-07-14 07:51] LABS: CALCIUM 8.9 mg/dL (8.5-10.1)
[2020-07-14 07:52] LABS: ALBUMIN 3.4 g/dl (3.4-5.0); BLOOD UREA NITROGEN 20.4 mg/dL (7-18)
[2020-07-14 07:53] LABS: BILIRUBIN,TOTAL 0.4 mg/dL (0.2-1); TOT PROT 7.4 g/dl (6.4-8.2)
[2020-07-14 07:55] LABS: CREATININE 0.8 mg/dL (0.55-1.3); PHOSPHOROUS 4.6 mg/dL (2.5-4.9)
[2020-07-14] MEDS: SIMETHICONE 80 MG TAB.CHEW (FP) PO PRN (09:17)
[2020-07-14] MEDS ORDERED: ENALAPRIL MALEATE 10 MG TABLET PO SCH ×2 (10:00→18:58)
[2020-07-14] MEDS ORDERED: amLODIPine BESYLATE 5 MG TABLET (FP) PO SCH (10:00)
[2020-07-14] MEDS ORDERED: ASPIRIN 81 MG CHEWABLE TABLETS PO SCH (10:00)
[2020-07-14] MEDS ORDERED: FAMOTIDINE 20 MG TABLET PO SCH (10:00)
[2020-07-14] MEDS ORDERED: metoPROLOL SUCCINATE 25 MG TAB.SR.24H (FP) PO SCH (10:00)
[2020-07-14] MEDS: ENALAPRIL MALEATE 10 MG TABLET PO SCH (10:18)
[2020-07-14] MEDS: amLODIPine BESYLATE 5 MG TABLET (FP) PO SCH (10:18)
[2020-07-14] MEDS: ENOXAPARIN NA (PORCINE) 40 MG/0.4 ML DISP.SYRIN SQ SCH (10:28)
[2020-07-14 11:16] LABS: EPI CELLS >36 /uL (0-25.1); HYALINE CASTS 0 /uL (0-3.1); URINE APPEARANCE CLEAR; URINE BACTERIA 1675 /uL (0-1359); URINE BILIRUBIN NEGATIVE (NEGATIVE); URINE COLOR YELLOW; URINE GLUCOSE (UA) NEGATIVE (NEGATIVE); URINE KETONE NEGATIVE (NEGATIVE); URINE LEUK ESTERASE NEGATIVE (NEGATIVE); URINE NITRITE NEGATIVE (NEGATIVE); URINE PROTEIN 2+ (NEGATIVE); URINE RBC 4 /uL (0-23.9); URINE UROBILINOGEN 0.2 mg/dL (0.2-1.0); URINE WBC 14 /uL (0-25.8)
[2020-07-14 11:18] VITALS: BP 135/68; PULSE 61; TEMP 97.8
== END 2020-07-14 14:26 | disposition home or self-care (01) ==
LOC: JER 07:05 → INTOOBSV 07:37 → JERBED 07:37 → J4W 12:31
PROVIDERS: ATTEND Nurse Practitioner Family
PROC: 3E013VG Introduction of Insulin into Subcutaneous Tissue, Percutaneous Approach (ICD-10-PCS; principal; 2020-07-13)
PROC: 3E013VG Introduction of Insulin into Subcutaneous Tissue, Percutaneous Approach (ICD-10-PCS; 2020-07-13)
PROC: 3E033NZ Introduction of Analgesics, Hypnotics, Sedatives into Peripheral Vein, Percutaneous Approach (ICD-10-PCS; 2020-07-13)
DX: R07.9 Chest pain, unspecified (principal); E78.00 Pure hypercholesterolemia, unspecified; I10 Essential (primary) hypertension; E11.9 Type 2 diabetes mellitus without complications; F17.210 Nicotine dependence, cigarettes, uncomplicated; F41.9 Anxiety disorder, unspecified; M85.80 Other specified disorders of bone density and structure, unspecified site
CPT/HCPCS: 36415; 71045-TC-FY; 80053; 80061; 81003; 82550; 82962; 83036; 83690; 83721; 83735; 84100; 84443; 84484; 85025; 85610; 85730; 87086; 93005; 93010; 93306-TC; 96365; 96372; 99285-25; C9803; G0378; J0131; U0003; U0005

== ENCOUNTER 2020-08-24 10:40 | Emergency (ER) | payer OTHER ==
[2020-08-24 11:08] VITALS: BP 132/84; PULSE 69; TEMP 98.3; BMI 28.3
[2020-08-24] MEDS ORDERED: METHOCARBAMOL 500 MG TABLET PO ONE (11:49)
[2020-08-24] MEDS ORDERED: LIDOCAINE 5% TOPICAL PATCH TP ONE (11:49)
[2020-08-24] MEDS ORDERED: METHOCARBAMOL 500 MG TABLET ONE (11:53)
[2020-08-24] MEDS ORDERED: LIDOCAINE 5% TOPICAL PATCH ONE (11:53)
[2020-08-24] MEDS ORDERED: KETOROLAC TROMETHAMINE 30 MG/1 ML VIAL IM ONE (12:02)
[2020-08-24] MEDS ORDERED: KETOROLAC TROMETHAMINE 30 MG/1 ML VIAL ONE (12:08)
[2020-08-24] MEDS ORDERED: LIDOCAINE PATCH REMOVAL MC SCH (22:00)
== END 2020-08-24 14:04 | disposition home or self-care (01) ==
LOC: JERFT 10:40
PROC: 3E0233Z Introduction of Anti-inflammatory into Muscle, Percutaneous Approach (ICD-10-PCS; principal; 2020-08-24)
DX: M54.41 Lumbago with sciatica, right side (principal)
CPT/HCPCS: 96372; 99283-25

== ENCOUNTER 2020-08-29 16:35 | Emergency (ER) | payer OTHER ==
[2020-08-29 16:56] VITALS: BP 163/94; PULSE 95; TEMP 98.1; BMI 29.1
[2020-08-29 18:01] LABS: BASO % 0.9 % (0-2.0); HEMATOCRIT 36.6 % (32.4-45.2); HEMOGLOBIN 12.3 GM/dL (10.7-15.3); LYMPH % 24.5 % (8-40); MCH 28.1 pg (25.7-33.7); MCHC 33.6 g/dl (32.0-36.0); MEAN CELL VOLUME 83.6 fl (80-96); MEAN PLT VOLUME 9.2 fl (7.5-11.1); MONO % 8.1 % (3.8-10.2); NEUT % 65.5 % (42.8-82.8); PLATELET COUNT 224 10^3/uL (134-434); RBC 4.37 M/mm3 (3.60-5.2); RDW 14.9 % (11.6-15.6); WHITE BLOOD COUNT 7.8 K/mm3 (4.0-10.0)
[2020-08-29 18:14] LABS: CHLORIDE 106 mmol/L (98-107); SODIUM 140 mmol/L (136-145)
[2020-08-29 18:17] LABS: CALCIUM 9.3 mg/dL (8.5-10.1)
[2020-08-29 18:18] LABS: ALBUMIN 3.6 g/dl (3.4-5.0); ANION GAP 7 MMOL/L (8-16); BLOOD UREA NITROGEN 17.4 mg/dL (7-18); CO2 27 mmol/L (21-32); GLUCOSE,RANDOM 169 mg/dL (74-106)
[2020-08-29 18:21] LABS: CREATININE 0.9 mg/dL (0.55-1.3); SGOT/AST 17 U/L (15-37); SGPT/ALT 21 U/L (13-61)
[2020-08-29 18:22] LABS: BILIRUBIN,TOTAL 0.4 mg/dL (0.2-1)
[2020-08-29 18:23] LABS: TOT PROT 8.2 g/dl (6.4-8.2)
[2020-08-29 18:24] LABS: ALK PHOS 124 U/L (45-117)
== END 2020-08-29 18:49 | disposition home or self-care (01) ==
LOC: JER 16:35
DX: F41.9 Anxiety disorder, unspecified (principal)
CPT/HCPCS: 36415; 71046-TC-FY; 80053; 82550; 84484; 85025; 93005; 93010; 99285-25

== ENCOUNTER 2020-09-25 20:21 | Observation (INO) | payer OTHER ==
[2020-09-25 20:30] VITALS: BMI 29.9
[2020-09-25] MEDS ORDERED: MAG HYDROX/AL HYDROX/SIMETH -MYLANTA- ORAL SUSPENSION PO ONE (23:06)
[2020-09-25] MEDS ORDERED: FAMOTIDINE 10 MG TABLET PO ONE ×2 (23:06→23:17)
[2020-09-25] MEDS ORDERED: ACETAMINOPHEN 325 MG TABLET (FP) PO ONE (23:06)
[2020-09-25] MEDS ORDERED: FAMOTIDINE 20 MG/50 ML IVPB 20 MG/50 ML MG IVPB ONE (23:11)
[2020-09-25] MEDS ORDERED: MAG HYDROX/AL HYDROX/SIMETH 30 ML UNIT-DOSE CUP ONE (23:13)
[2020-09-25] MEDS ORDERED: FAMOTIDINE 20 MG TABLET ONE (23:13)
[2020-09-25] MEDS ORDERED: ACETAMINOPHEN 325 MG TABLET (FP) ONE (23:13)
[2020-09-25] MEDS ORDERED: ASPIRIN 81 MG CHEWABLE TABLETS PO ONE (23:15)
[2020-09-25 23:24] LABS: EPI CELLS 16 /uL (0-25.1); HYALINE CASTS 0 /uL (0-3.1); PH,URINE 7.5 (5.0-8.0); URINE APPEARANCE CLEAR; URINE BACTERIA 175 /uL (0-1359); URINE BILIRUBIN NEGATIVE (NEGATIVE); URINE COLOR YELLOW; URINE GLUCOSE (UA) NEGATIVE (NEGATIVE); URINE KETONE NEGATIVE (NEGATIVE); URINE LEUK ESTERASE NEGATIVE (NEGATIVE); URINE NITRITE NEGATIVE (NEGATIVE); URINE PROTEIN 2+ (NEGATIVE); URINE RBC 3 /uL (0-23.9); URINE WBC 14 /uL (0-25.8)
[2020-09-25] MEDS ORDERED: ASPIRIN 81 MG CHEWABLE TABLETS ONE (23:25)
[2020-09-26 00:20] LABS: BASO % 0.3 % (0-2.0); HEMOGLOBIN 11.9 GM/dL (10.7-15.3); LYMPH % 36.5 % (8-40); MCH 28.4 pg (25.7-33.7); MCHC 34.1 g/dl (32.0-36.0); MEAN CELL VOLUME 83.4 fl (80-96); MEAN PLT VOLUME 10.2 fl (7.5-11.1); MONO % 7.2 % (3.8-10.2); PLATELET COUNT 152 10^3/uL (134-434); RDW 14.7 % (11.6-15.6); WHITE BLOOD COUNT 10.6 K/mm3 (4.0-10.0)
[2020-09-26 00:39] LABS: CHLORIDE 105 mmol/L (98-107); SODIUM 141 mmol/L (136-145)
[2020-09-26 00:40] LABS: ALBUMIN 3.5 g/dl (3.4-5.0); CALCIUM 8.6 mg/dL (8.5-10.1)
[2020-09-26 00:41] LABS: ANION GAP 6 MMOL/L (8-16); CO2 31 mmol/L (21-32); GLUCOSE,RANDOM 96 mg/dL (74-106); LIPASE 150 U/L (73-393)
[2020-09-26 00:45] LABS: BILIRUBIN,TOTAL 0.4 mg/dL (0.2-1); CREATININE 0.9 mg/dL (0.55-1.3); SGOT/AST 10 U/L (15-37); SGPT/ALT 16 U/L (13-61); TOT PROT 7.5 g/dl (6.4-8.2)
[2020-09-26 00:46] LABS: ALK PHOS 103 U/L (45-117)
[2020-09-26 02:47] LABS: PHOSPHOROUS 4.1 mg/dL (2.5-4.9)
[2020-09-26] MEDS ORDERED: ENALAPRIL MALEATE 10 MG TABLET PO SCH ×2 (03:30→03:45)
[2020-09-26] MEDS ORDERED: PANTOPRAZOLE SODIUM 40 MG VIAL IVPUSH SCH (03:35)
[2020-09-26] MEDS ORDERED: ATORVASTATIN CA 40 MG TABLET (FP) PO SCH (04:00)
[2020-09-26 04:02] LABS: PLATELET ESTIMATE DECREASED
[2020-09-26] MEDS ORDERED: PANTOPRAZOLE SODIUM 40 MG/100 ML BAG IVPB ONE (05:01)
[2020-09-26] MEDS ORDERED: ATORVASTATIN CA 40 MG TABLET (FP) ONE (05:01)
[2020-09-26] MEDS ORDERED: SIMETHICONE 80 MG TAB.CHEW (FP) PO PRN (05:38)
[2020-09-26 07:19] LABS: HEMATOCRIT 34.1 % (32.4-45.2); HEMOGLOBIN 11.5 GM/dL (10.7-15.3); MCH 28.1 pg (25.7-33.7); MCHC 33.6 g/dl (32.0-36.0); MEAN CELL VOLUME 83.6 fl (80-96); PLATELET COUNT 166 10^3/uL (134-434); RBC 4.08 M/mm3 (3.60-5.2); RDW 14.9 % (11.6-15.6); WHITE BLOOD COUNT 7.5 K/mm3 (4.0-10.0)
[2020-09-26 07:32] LABS: CHLORIDE 108 mmol/L (98-107); SODIUM 141 mmol/L (136-145)
[2020-09-26 07:36] LABS: ALBUMIN 3.3 g/dl (3.4-5.0); ANION GAP 4 MMOL/L (8-16); BLOOD UREA NITROGEN 15.4 mg/dL (7-18); CALCIUM 8.7 mg/dL (8.5-10.1); CO2 30 mmol/L (21-32); GLUCOSE,RANDOM 77 mg/dL (74-106); MAGNESIUM 2.2 mg/dL (1.8-2.4)
[2020-09-26 07:39] LABS: CHOLESTEROL 123 mg/dL (50-200); CREATININE 0.8 mg/dL (0.55-1.3); PHOSPHOROUS 4.5 mg/dL (2.5-4.9); SGOT/AST 8 U/L (15-37); SGPT/ALT 17 U/L (13-61); TRIGLYCERIDES 185 mg/dL (0-150)
[2020-09-26 07:40] LABS: BILIRUBIN,TOTAL 0.6 mg/dL (0.2-1); LDL CHOLESTEROL (ONLY SJRH) 68 mg/dL (5-100)
[2020-09-26 07:42] LABS: HDL CHOLESTEROL 29 mg/dL (40-60)
[2020-09-26 07:44] LABS: ALK PHOS 96 U/L (45-117)
[2020-09-26] MEDS ORDERED: MAG HYDROX/AL HYDROX/SIMETH 30 ML UNIT-DOSE CUP PO PRN (09:26)
[2020-09-26] MEDS: INSULIN SLIDING SCALE (NOVOLOG) 1 VIAL SQ SCH ×2 (09:28→14:27)
[2020-09-26] MEDS ORDERED: ENOXAPARIN NA (PORCINE) 40 MG/0.4 ML DISP.SYRIN SQ ONE (09:53)
[2020-09-26] MEDS ORDERED: ENALAPRIL MALEATE 5 MG TABLET ONE (09:53)
[2020-09-26] MEDS ORDERED: amLODIPine BESYLATE 5 MG TABLET (FP) ONE (09:53)
[2020-09-26] MEDS ORDERED: ENOXAPARIN NA (PORCINE) 40 MG/0.4 ML DISP.SYRIN SQ SCH (10:00)
[2020-09-26] MEDS ORDERED: POLYETHYLENE GLYCOL (HEALTHYLAX) 3350 17 GM PACKET PO SCH ×2 (10:00→14:00)
[2020-09-26] MEDS ORDERED: PANTOPRAZOLE 40 MG TABLET PO SCH (10:00)
[2020-09-26] MEDS ORDERED: amLODIPine BESYLATE 5 MG TABLET (FP) PO SCH (10:00)
[2020-09-26 17:09] VITALS: PULSE 63
[2020-09-26 18:00] VITALS: BP 182/86; TEMP 98.5
== END 2020-09-26 18:00 | disposition home or self-care (01) ==
LOC: JER 20:21 → UNDOADMOB 09-26 02:08 → INTOOBSV 09-26 02:08 → JERBED 09-26 02:08
PROVIDERS: ADMIT Internal Medicine; ATTEND Nurse Practitioner Acute Care
PROC: 3E023GC Introduction of Other Therapeutic Substance into Muscle, Percutaneous Approach (ICD-10-PCS; principal; 2020-09-26)
PROC: 3E033GC Introduction of Other Therapeutic Substance into Peripheral Vein, Percutaneous Approach (ICD-10-PCS; 2020-09-26)
DX: K29.70 Gastritis, unspecified, without bleeding (principal); E66.8 Other obesity; Z68.30 Body mass index [BMI] 30.0-30.9, adult; E11.9 Type 2 diabetes mellitus without complications; E78.5 Hyperlipidemia, unspecified; I10 Essential (primary) hypertension; F41.9 Anxiety disorder, unspecified; M81.0 Age-related osteoporosis without current pathological fracture; F17.210 Nicotine dependence, cigarettes, uncomplicated; Z79.4 Long term (current) use of insulin
CPT/HCPCS: 36415; 71046-TC-FY; 74178-TC; 76700-TC; 80053; 80061; 81003; 82550; 82962; 83036; 83690; 83735; 84100; 84443; 84484; 85025; 85027; 87086; 93005; 93010; 96372; 96374; 99285-25; C9803; G0378; Q9967; U0003; U0005

== ENCOUNTER 2020-10-15 19:37 | Emergency (ER) | payer OTHER ==
[2020-10-15 20:02] VITALS: BMI 28.3
[2020-10-15] MEDS ORDERED: METOCLOPRAMIDE HCL INJECTION 10 MG/2 ML VIAL IVPB ONE (21:33)
[2020-10-15] MEDS ORDERED: METOCLOPRAMIDE HCL INJECTION 10 MG/2 ML VIAL IVPUSH ONE (21:33)
[2020-10-15] MEDS ORDERED: SODIUM CHLORIDE 0.9% 1000 ML INFUS.BAG IV ONE (21:34)
[2020-10-15] MEDS ORDERED: METOCLOPRAMIDE HCL INJECTION 10 MG/2 ML VIAL ONE (21:39)
[2020-10-15 22:31] LABS: EPI CELLS 12 /uL (0-25.1); HYALINE CASTS 0 /uL (0-3.1); PH,URINE 8.5 (5.0-8.0); URINE APPEARANCE CLOUDY; URINE BACTERIA 241 /uL (0-1359); URINE BILIRUBIN NEGATIVE (NEGATIVE); URINE COLOR YELLOW; URINE GLUCOSE (UA) NEGATIVE (NEGATIVE); URINE KETONE NEGATIVE (NEGATIVE); URINE LEUK ESTERASE NEGATIVE (NEGATIVE); URINE NITRITE NEGATIVE (NEGATIVE); URINE PROTEIN 2+ (NEGATIVE); URINE RBC 3 /uL (0-23.9); URINE UROBILINOGEN 0.2 mg/dL (0.2-1.0); URINE WBC 10 /uL (0-25.8)
[2020-10-15 23:24] VITALS: BP 167/89; PULSE 65; TEMP 97.6
[2020-10-16] MEDS ORDERED: NICOTINE 7 MG/24 HOURS TOPICAL PATCH TD SCH (10:00)
== END 2020-10-15 23:31 | disposition home or self-care (01) ==
LOC: JER 19:37
PROC: 3E033GC Introduction of Other Therapeutic Substance into Peripheral Vein, Percutaneous Approach (ICD-10-PCS; principal; 2020-10-15)
DX: F41.9 Anxiety disorder, unspecified (principal); M79.10 Myalgia, unspecified site
CPT/HCPCS: 81003; 87086; 87804; 96374; 99284-25; C9803; U0003; U0005

== ENCOUNTER 2020-12-18 11:34 | Emergency (ER) | payer OTHER ==
[2020-12-18 12:10] VITALS: BP 147/84; PULSE 64; TEMP 97.8; BMI 27.9
[2020-12-18] MEDS ORDERED: ONDANSETRON 4 MG/2 ML VIAL IVPUSH ONE (13:06)
[2020-12-18] MEDS ORDERED: SODIUM CHLORIDE 1,000 ML IV STA (13:06)
[2020-12-18] MEDS ORDERED: ACETAMINOPHEN 1000 MG/100 ML VIAL IVPB ONE (13:06)
[2020-12-18] MEDS ORDERED: ACETAMINOPHEN INJECTION 100 ML IVPB ONE (14:17)
[2020-12-18] MEDS ORDERED: ONDANSETRON 4 MG/2 ML VIAL ONE (14:17)
== END 2020-12-18 14:39 | disposition left against medical advice (07) ==
LOC: JER 11:34
PROC: 3E0333Z Introduction of Anti-inflammatory into Peripheral Vein, Percutaneous Approach (ICD-10-PCS; principal; 2020-12-18)
PROC: 3E033GC Introduction of Other Therapeutic Substance into Peripheral Vein, Percutaneous Approach (ICD-10-PCS; 2020-12-18)
PROC: 3E0337Z Introduction of Electrolytic and Water Balance Substance into Peripheral Vein, Percutaneous Approach (ICD-10-PCS; 2020-12-18)
DX: R10.9 Unspecified abdominal pain (principal)
CPT/HCPCS: 71046-TC-FY; 96361; 96374; 96375; 99285-25

== ENCOUNTER 2022-07-31 10:38 | Day surgery (SDC) | payer OTHER ==
[2022-07-26 14:27] VITALS: BMI 26.1
[2022-07-31 13:10] VITALS: TEMP 97.4
[2022-08-01 08:50] VITALS: BP 118/71; PULSE 62; RESP 18
== END 2022-07-31 13:25 | disposition home or self-care (01) ==
LOC: FASU-ENDO 10:38
PROVIDERS: ATTEND Internal Medicine Gastroenterology
PROC: 0DJD8ZZ Inspection of Lower Intestinal Tract, Via Natural or Artificial Opening Endoscopic (ICD-10-PCS; principal; 2022-07-31 12:43)
DX: Z12.11 Encounter for screening for malignant neoplasm of colon (principal); K64.1 Second degree hemorrhoids; K64.8 Other hemorrhoids

== ENCOUNTER 2024-04-14 19:03 | Inpatient (IN) | payer OTHER ==
[2024-04-14] MEDS ORDERED: ONDANSETRON 4 MG/2 ML VIAL ONE (22:03)
[2024-04-14] MEDS ORDERED: FAMOTIDINE 20 MG/50 ML IVPB 20 MG/50 ML MG IVPB ONE (22:05)
[2024-04-14] MEDS: SODIUM CHLORIDE 0.9% 500 ML INFUS.BAG IV ONE (22:13)
[2024-04-14] MEDS: ONDANSETRON 4 MG/2 ML VIAL IVPUSH ONE (22:14)
[2024-04-14] MEDS: FAMOTIDINE 20 MG/50 ML IVPB 20 MG/50 ML MG IVPB ONE (22:14)
[2024-04-14 22:48] LABS: BASO % 0.7 % (0-2.0); EOS % 0.6 % (0-4.5); HEMATOCRIT 41.4 % (32.4-45.2); HEMOGLOBIN 13.6 GM/dL (10.7-15.3); MCH 27.2 pg (25.7-33.7); MCHC 32.8 g/dl (32.0-36.0); MEAN PLT VOLUME 9.9 fl (7.5-11.1); NEUT % 66.7 % (42.8-82.8); PLATELET COUNT 224 10^3/uL (134-434); RBC 4.99 M/mm3 (3.60-5.2); WHITE BLOOD COUNT 10.6 K/mm3 (4.0-10.0)
[2024-04-14 22:53] LABS: EPI CELLS >36 /uL (0-25.1); HYALINE CASTS 1 /uL (0-3.1); PH,URINE 5.5 (5.0-8.0); URINE APPEARANCE CLEAR; URINE BACTERIA 862 /uL (0-1359); URINE BILIRUBIN NEGATIVE (NEGATIVE); URINE COLOR YELLOW; URINE GLUCOSE (UA) 3+ (NEGATIVE); URINE KETONE TRACE (NEGATIVE); URINE LEUK ESTERASE NEGATIVE (NEGATIVE); URINE NITRITE NEGATIVE (NEGATIVE); URINE PROTEIN 2+ (NEGATIVE); URINE RBC 12 /uL (0-23.9); URINE UROBILINOGEN 0.2 mg/dL (0.2-1.0); URINE WBC 34 /uL (0-25.8)
[2024-04-14 22:56] LABS: INR 1.16 (0.83-1.09); PROTHROMBIN TIME (PATIENT) 12.8 SEC (9.7-13.0)
[2024-04-14 23:02] LABS: POTASSIUM 4.6 mmol/L (3.5-5.1)
[2024-04-14 23:04] LABS: CALCIUM 9.7 mg/dL (8.5-10.1)
[2024-04-14 23:05] LABS: ALBUMIN 3.6 g/dl (3.4-5.0); BLOOD UREA NITROGEN 21.4 mg/dL (7-18)
[2024-04-14 23:08] LABS: CREATININE 0.8 mg/dL (0.55-1.3)
[2024-04-14 23:09] LABS: BILIRUBIN,TOTAL 1.2 mg/dL (0.2-1); TOT PROT 7.9 g/dl (6.4-8.2)
[2024-04-15] MEDS: SODIUM CHLORIDE 1,000 ML IV SCH (01:35)
[2024-04-15 03:05] VITALS: BMI 27.3
[2024-04-15] MEDS ORDERED: ALBUTEROL SO4 HFA INHALER IH PRN (03:23)
[2024-04-15 03:58] VITALS: RESP 16
[2024-04-15] MEDS: ATORVASTATIN CA 40 MG TABLET (FP) PO ONE (04:31)
[2024-04-15] MEDS: GABAPENTIN 400 MG CAPSULE PO ONE (04:31)
[2024-04-15] MEDS ORDERED: GABAPENTIN 400 MG CAPSULE PO SCH (06:00)
[2024-04-15] MEDS ORDERED: ACETAMINOPHEN 325 MG TABLET (FP) PO PRN (06:08)
[2024-04-15] MEDS ORDERED: traZODone HCL 50 MG TABLET (FP) PO SCH (06:15)
[2024-04-15] MEDS: INSULIN (LEVEMIR) 100 UNITS/ML UNITS SQ SCH (06:33)
[2024-04-15] MEDS: INSULIN ASPART SLIDING SCALE (NOVOLOG) 1 VIAL SQ SCH (06:33)
[2024-04-15] MEDS ORDERED: traZODone HCL 50 MG TABLET (FP) PO PRN (09:43)
[2024-04-15] MEDS ORDERED: PATIENT'S OWN MEDICATION (NON-FORMULARY) (Empagliflozin 25 MG Tablet) PO SCH (10:00)
[2024-04-15 10:06] LABS: BASO % 0.6 % (0-2.0); EOS % 1.4 % (0-4.5); HEMATOCRIT 41.4 % (32.4-45.2); HEMOGLOBIN 13.8 GM/dL (10.7-15.3); LYMPH % 26.5 % (8-40); MCH 27.8 pg (25.7-33.7); MCHC 33.3 g/dl (32.0-36.0); MEAN CELL VOLUME 83.5 fl (80-96); MEAN PLT VOLUME 9.9 fl (7.5-11.1); MONO % 9.7 % (3.8-10.2); NEUT % 61.8 % (42.8-82.8); PLATELET COUNT 216 10^3/uL (134-434); RBC 4.96 M/mm3 (3.60-5.2); RDW 15.4 % (11.6-15.6); WHITE BLOOD COUNT 7.7 K/mm3 (4.0-10.0)
[2024-04-15] MEDS: metoPROLOL SUCCINATE 25 MG TAB.SR.24H (FP) PO SCH (10:11)
[2024-04-15] MEDS: FAMOTIDINE 20 MG/2.5 ML ORAL LIQUID PO SCH (10:11)
[2024-04-15] MEDS: LISINOPRIL 20 MG TABLET PO SCH (10:11)
[2024-04-15] MEDS: ENOXAPARIN NA (PORCINE) 40 MG/0.4 ML DISP.SYRIN SQ SCH (10:12)
[2024-04-15] MEDS: amLODIPine BESYLATE 5 MG TABLET (FP) PO SCH (10:12)
[2024-04-15 12:01] LABS: POTASSIUM 4.4 mmol/L (3.5-5.1)
[2024-04-15 12:05] LABS: ALBUMIN 3.4 g/dl (3.4-5.0)
[2024-04-15 12:08] LABS: CREATININE 0.7 mg/dL (0.55-1.3)
[2024-04-15 12:09] LABS: TOT PROT 7.6 g/dl (6.4-8.2)
[2024-04-15 12:10] LABS: CALCIUM 9.5 mg/dL (8.5-10.1)
[2024-04-15 12:11] LABS: BLOOD UREA NITROGEN 15.8 mg/dL (7-18)
[2024-04-15 12:13] LABS: BILIRUBIN,DIRECT 0.3 mg/dL (0.0-0.2); PHOSPHOROUS 3.4 mg/dL (2.5-4.9)
[2024-04-15 12:14] LABS: BILIRUBIN,TOTAL 1.4 mg/dL (0.2-1)
[2024-04-15 12:45] LABS: HIV INTERPRETATION NEGATIVE (NEGATIVE)
[2024-04-15] MEDS: GABAPENTIN 400 MG CAPSULE PO SCH (14:52)
[2024-04-15] MEDS: ATORVASTATIN CA 40 MG TABLET (FP) PO SCH (21:43)
[2024-04-16 09:12] VITALS: BP 133/82; PULSE 55; TEMP 98.1
[2024-04-16 10:17] LABS: HEMATOCRIT 39.2 % (32.4-45.2); HEMOGLOBIN 13.3 GM/dL (10.7-15.3); MCH 28.4 pg (25.7-33.7); MCHC 33.9 g/dl (32.0-36.0); MEAN CELL VOLUME 83.8 fl (80-96); MEAN PLT VOLUME 9.8 fl (7.5-11.1); PLATELET COUNT 206 10^3/uL (134-434); RBC 4.68 M/mm3 (3.60-5.2); RDW 15.4 % (11.6-15.6); WHITE BLOOD COUNT 6.4 K/mm3 (4.0-10.0)
[2024-04-16 10:41] LABS: POTASSIUM 4.1 mmol/L (3.5-5.1)
[2024-04-16 10:45] LABS: CALCIUM 9.3 mg/dL (8.5-10.1)
[2024-04-16 10:46] LABS: ALBUMIN 3.3 g/dl (3.4-5.0); MAGNESIUM 1.9 mg/dL (1.8-2.4)
[2024-04-16 10:48] LABS: PHOSPHOROUS 3.8 mg/dL (2.5-4.9)
[2024-04-16 10:49] LABS: CREATININE 0.7 mg/dL (0.55-1.3)
[2024-04-16 10:50] LABS: TOT PROT 7.8 g/dl (6.4-8.2)
== END 2024-04-16 16:41 | disposition home or self-care (01) | DRG 440 ==
LOC: JER 19:03 → JERBED 04-15 01:03 → J6S 04-15 02:10
PROVIDERS: ADMIT Student in an Organized Health Care Education/Training Program; ATTEND Internal Medicine
DX: K85.90 Acute pancreatitis without necrosis or infection, unspecified (principal); I10 Essential (primary) hypertension; E78.5 Hyperlipidemia, unspecified; E11.9 Type 2 diabetes mellitus without complications; J45.909 Unspecified asthma, uncomplicated; M81.0 Age-related osteoporosis without current pathological fracture; F41.9 Anxiety disorder, unspecified
CPT/HCPCS: 0241U-QW; 36415; 74181-TC; 76705-TC; 80053; 80061; 81003; 82248; 82787; 82962; 82977; 83690; 83735; 84100; 84484; 85025; 85027; 85610; 86704; 86708; 86803; 87077; 87086; 87340; 87389; 87517; 93005; 93010; 99285-25